=== PATIENT | female | born 1955 | race African-American/Black ===

== ENCOUNTER 2017-04-22 20:05 | Inpatient (IN) | payer OTHER ==
[~2017-04-22] VITALS: Ht 165.1 cm; Wt 108.4 kg
[~2017-04-22 20:05] MED LIST: AMOXICILLIN500 MG PO; CIPRO500 MG PO; LOSARTAN POTASS25 MG ORAL; MEDROL DOSEPAK4 MG ORAL; METFORMIN HCL1000 M1 ORAL; NORCO 5-325 TA1 EACH ORAL; NORCO 5-325 TA1 EACH PO; PROTONIX40 MG ORAL; RANITIDINE HCL150 MG ORAL; TRAMADOL HCL50 MG ORAL
[2017-04-22 20:31] VITALS: BP 143/80
--- NOTE | 2017-04-22 20:41 | Emergency Room Report ---
History of Present Illness General Chief Complaint: Abdominal Pain Source: Patient (Davie Cuellar M.D.) Present Illness HPI Patient presents with 2 days of lower abdominal pain. She describes it as severe cramping. Radiate somewhat to her back. She's also had nausea without any vomiting. There's no change in her bowel habits. She had knee surgery 1 month ago. She has been taking naprosyn. She was unable to fill other Rx for other pain med ([place]). The patient is a history of small bowel obstruction in the past. She's had a partial hysterectomy. In addition she had colonoscopy and she believes diagnosis of diverticuli was made to that exam. The patient denies any chest pain, shortness of breath, fevers, chills. There' s no dysuria. (Davie Cuellar M.D.) Allergies: Coded Allergies: No Known Allergies (Unverified , 08/25/13) Patient History Past Medical History: see triage record Past Surgical History: hysterectomy - partial, other - knee surgery Social History: Reports: smoking - former Social History Narrative with family Last Menstrual Period: 1996 Now: No : 10 Para: 3 Reviewed Nursing Documentation: PMH: Agreed, PSxH: Agreed (Davie Cuellar M.D.) Nursing Documentation-PMH Hx Hypertension: Yes Hx Diabetes: Yes Hx Cancer: No Hx Gastrointestinal Problems: No Hx Neurological Problems: Yes - Carpal Tunnel Syndrome (Davie Cuellar M.D.) Review of Systems All Other Systems: negative except mentioned in HPI (Davie Cuellar M.D.) Physical Exam Vital Signs Date Time Temp Pulse Resp B/P Pulse Ox O2 Delivery O2 Flow Rate FiO2 04/22/17 20:10 98.4 96 16 125/85 96 Room Air Sp02 EP Interpretation: reviewed, normal General Appearance: well appearing, no apparent distress, GCS 15 Head: normocephalic Eyes: bilateral eye PERRL, bilateral eye normal inspection ENT: moist mucus membranes Neck: supple Respiratory: lungs clear, normal breath sounds Cardiovascular #1: regular rate, rhythm Cardiovascular #2: 2+ radial (R) Gastrointestinal: normal inspection, normal bowel sounds, no mass, non- distended, no rebound, guarding, tenderness - LLQ Musculoskeletal: back normal, gait/station normal, normal range of motion Neurologic: alert, oriented x3, grossly normal Psychiatric: mood/affect normal - but in pain Skin: normal inspection, warm/dry (Davie Cuellar M.D.) Medical Decision Making Diagnostic Impression: Primary Impression: Abdominal pain Qualified Codes: R10.32 - Left lower quadrant pain Additional Impressions: Intractable abdominal pain UTI (urinary tract infection) Qualified Codes: N30.00 - Acute cystitis without hematuria ER Course Patient presents with abdominal pain. Really severe. It's not a surgical abdomen at the moment. It's significant on exam however and evaluation needs to be undertaken to exclude diverticulitis versus small bowel obstruction. Addition a UTI and ureteral stone are on the differential. Labs, urinalysis and CT of the abdomen with IV and oral contrast is ordered. Patient was treated with IV hydration Zofran and morphine. Morphine not touch pain. Dilaudid ordered. Labs with normal WBC. Pyuria. Antibiotics begun. IV hydration continued. Dilaudid repeated. Still with LLQ guarding. Due to character of pain and lack of improvement, patient will be admitted. CT pending. Signed out to Dr. Brown. (Davie Cuellar M.D.) ER Course Please refer to the initial note for the history exam and presentation Patient here had persistent lower abdominal pain and also left sided Therefore CAT scan imaging was obtained At this time does not reveal any obvious acute abdominal pathology Urine sample did show evidence of infection patient was placed on antibiotics at this time is admitted for further care Labs Test 04/22/17 20:45 White Blood Count 9.3 K/UL (4.8-10.8) Red Blood Count 4.43 M/UL (4.20-5.40) Hemoglobin 11.9 G/DL (12.0-16.0) Hematocrit 36.2 % (37.0-47.0) Mean Corpuscular Volume 82 FL (80-99) Mean Corpuscular Hemoglobin 26.9 PG (27.0-31.0) Mean Corpuscular Hemoglobin Concent 32.9 G/DL (32.0-36.0) Red Cell Distribution Width 14.0 % (11.6-14.8) Platelet Count 294 K/UL (150-450) Mean Platelet Volume 7.8 FL (6.5-10.1) Neutrophils (%) (Auto) 50.9 % (45.0-75.0) Lymphocytes (%) (Auto) 38.5 % (20.0-45.0) Monocytes (%) (Auto) 5.7 % (1.0-10.0) Eosinophils (%) (Auto) 3.6 % (0.0-3.0) Basophils (%) (Auto) 1.4 % (0.0-2.0) Prothrombin Time 10.3 SEC (9.30-11.50) Prothromb Time International Ratio 1.0 (0.9-1.1) Activated Partial Thromboplast Time 29 SEC (23-33) Urine Color Fay Urine Appearance Slightly cloudy Urine pH 5 (4.5-8.0) Urine Specific [place] 1.025 (1.005-1.035) Urine Protein Negative (NEGATIVE) Urine Glucose (UA) 1+ (NEGATIVE) Urine Ketones 1+ (NEGATIVE) Urine Occult Blood Negative (NEGATIVE) Urine Nitrite Negative (NEGATIVE) Urine Bilirubin Negative (NEGATIVE) Urine Ictotest Negative Urine Urobilinogen 1 MG/DL (0.0-1.0) Urine Leukocyte Esterase 1+ (NEGATIVE) Urine RBC 0-2 /HPF (0 - 2) Urine WBC 5-10 /HPF (0 - 2) Urine Squamous Epithelial Cells Many /LPF (NONE/OCC) Urine Bacteria Moderate /HPF (NONE) Sodium Level 141 mEQ/L (135-145) Potassium Level 4.0 mEQ/L (3.4-4.9) Chloride Level 103 mEQ/L (98-107) Carbon Dioxide Level 25 mEQ/L (20-30) Anion Gap 13 (5-15) Blood Urea Nitrogen 17 mg/dL (7-23) Creatinine 0.8 mg/dL (0.5-0.9) Estimat Glomerular Filtration Rate > 60 mL/min (>60) Glucose Level 131 mg/dL (74-106) Calcium Level 9.6 mg/dL (8.6-10.2) Total Bilirubin 0.3 mg/dL (0.0-1.2) Aspartate Amino Transf (AST/SGOT) 21 U/L (5-40) Alanine Aminotransferase (ALT/SGPT) 27 U/L (3-33) Alkaline Phosphatase 71 U/L (35-104) Total Protein 7.6 g/dL (6.6-8.7) Albumin 4.7 g/dL (3.5-5.2) Globulin 2.9 g/dL Albumin/Globulin Ratio 1.6 (1.0-2.7) Lipase 14 U/L (< 60) (LEVY BROWN D.O.) Rhythm Strip Diag. Results EP Interpretation: yes Rate: 68 Rhythm: NSR, no PVC's, no ectopy (LEVY BROWN D.O.) CT/MRI/US Diagnostic Results CT/MRI/US Diagnostic Results : Impression CT abdomen pelvis: Previous cholecystectomy, no evidence of obstruction, extensive degenerative disc disease (LEVY BROWN D.O.) Last Vital Signs Date Time Temp Pulse Resp B/P Pulse Ox O2 Delivery O2 Flow Rate FiO2 04/23/17 00:55 98.4 04/22/17 20:31 97 13 143/80 100 Room Air Status: improved (Davie Cuellar M.D.) Status: improved (LEVY BROWN D.O.) Disposition: ADMITTED INPATIENT Condition: Serious Davie Cuellar M.D. Apr 22, 2017 20:41 LEVY BROWN D.O. Apr 23, 2017 00:36
[2017-04-22] MEDS ORDERED: Morphine Sulfate 4mg/ml Inj IVP ONE (20:45)
[2017-04-22 20:59] LABS: BASOPHILS % (AUTO) 1.4 % (0.0-2.0); EOSINOPHILS % (AUTO) 3.6 % (0.0-3.0); LYMPHOCYTES % (AUTO) 38.5 % (20.0-45.0); MEAN CORPUSCULAR HEMOGLOBIN 26.9 PG (27.0-31.0); MEAN CORPUSCULAR HGB CONC 32.9 G/DL (32.0-36.0); MEAN CORPUSCULAR VOLUME 82 FL (80-99); MEAN PLATELET VOLUME 7.8 FL (6.5-10.1); MONOCYTES % (AUTO) 5.7 % (1.0-10.0); NEUTROPHILS % (AUTO) 50.9 % (45.0-75.0); PLATELET COUNT 294 K/UL (150-450); RED BLOOD COUNT 4.43 M/UL (4.20-5.40); WHITE BLOOD COUNT 9.3 K/UL (4.8-10.8)
[2017-04-22 21:00] LABS: KETONES,URINE 1+ (NEGATIVE); LEUKOCYTE ESTERASE ,URINE 1+ (NEGATIVE); NITRITE,URINE NEGATIVE (NEGATIVE); PH,URINE 5 (4.5-8.0); PROTEIN,URINE NEGATIVE (NEGATIVE); UROBILINOGEN,URINE 1 MG/DL (0.0-1.0)
[2017-04-22 21:01] LABS: APPEARANCE,URINE SLIGHTLY CLOUDY
[2017-04-22 21:10] LABS: BACTERIA,URINE MODERATE /HPF; ICTOTEST NEGATIVE; RBC,URINE 0-2 /HPF (0 - 2); SQUAMOUS EPITHELIAL CELL,UR MANY /LPF (NONE/OCC)
[2017-04-22 21:12] LABS: PROTHROMBIN TIME 10.3 SEC (9.30-11.50)
[2017-04-22] MEDS ORDERED: HYDROmorphone 1mg/ml Carpuject IVP ONE ×2 (21:30→22:30)
[2017-04-22 21:41] LABS: ALANINE AMINOTRANSFERASE 27 U/L (3-33); ALBUMIN/GLOBULIN RATIO 1.6 (1.0-2.7); ANION GAP 13 (5-15); ASPARTATE AMINO TRANSFERASE 21 U/L (5-40); CALCIUM 9.6 mg/dL (8.6-10.2); CARBON DIOXIDE 25 mEQ/L (20-30); CHLORIDE 103 mEQ/L (98-107); CREATININE 0.8 mg/dL (0.5-0.9); GLOMERULAR FILTRATION RATE > 60 mL/min (>60); HEMOLYSIS 3; LIPASE 14 U/L (< 60); SODIUM 141 mEQ/L (135-145); TOTAL PROTEIN 7.6 g/dL (6.6-8.7)
[2017-04-22] MEDS ORDERED: cefTRIAXone 1 GM in NS 55 ML IVPB ONE (21:45)
[2017-04-23] VITALS (7 sets, daily range): BP systolic 118–137; BP diastolic 66–102
[2017-04-23] MEDS ORDERED: HYDROmorphone 1 MG, DiphenhydrAMINE 25 MG in NS 55 ML IV ONE (00:30)
[2017-04-23] MEDS ORDERED: DiphenhydrAMINE 50mg/ml Inj ONE (00:42)
[2017-04-23] MEDS ORDERED: HYDROmorphone 1mg/ml Carpuject ONE (00:42)
[2017-04-23] MEDS ORDERED: Nitroglycerin Subl 0.4mg tab (Bottle Of 25) SL PRN (07:00)
[2017-04-23] MEDS ORDERED: Mylanta II UD 30ml ORAL PRN (07:00)
[2017-04-23] MEDS ORDERED: Miralax 17gm pkt ORAL PRN (07:00)
[2017-04-23] MEDS: Morphine Sulfate 2mg/ml Inj IVP PRN ×3 (08:24→23:31)
[2017-04-23] MEDS: Heparin 5000 units/ml inj SUBQ SCH ×2 (09:26→21:05)
--- NOTE | 2017-04-23 09:50 | Diagnostic Imaging Report ---
Indication: Abdominal pain Technique: Continuous helical transaxial imaging of the abdomen and pelvis was obtained from the lung bases to the pubic symphysis during intravenous contrast administration. Coronal 2-D reformats were also obtained. Study obtained in a Siemens sensation [address] Total Dose length Product (DLP): [address] Dose Index Volume (CTDIvol): 19 mGy Comparison: 12/16/14 Findings: Small hiatal hernia noted. Mild posterior basilar reticular densities consistent with atelectasis demonstrated. The liver is low in attenuation consistent with fatty infiltration. Cholecystectomy noted. Aorta is mildly calcified. Accessory spleen noted. Surgical clips noted in the right lower quadrant posterior to the cecum. The appendix is seen and appears normal. Uterus is absent. Urinary bladder is unremarkable. No evidence of bowel obstruction or free air. No free fluid seen. Diverticula noted in the colon. There is narrowing of intervertebral discs and accompanying endplate osteophyte formation. Hypertrophied facet joints also demonstrated. Impression: Fatty liver Cholecystectomy Normal appendix Diverticulosis of the colon Atherosclerotic vascular disease Spondylosis [facility] has communicated the preliminary results to the Emergency Department. Their findings are largely concordant with this report. The CT scanner at [facility] is accredited by the [employer] and the scans are performed using dose optimization techniques as appropriate to a performed exam including Automatic Exposure control.
[2017-04-23] MEDS: NovoLOG Insulin Flexpen SUBQ SCH ×3 (11:30→21:00)
[2017-04-23] MEDS: Ketorolac 30mg Inj IV PRN ×2 (12:05→19:30)
--- NOTE | 2017-04-23 13:39 | GI Initial Consult Note ---
History of Present Illness General Date patient seen: Apr 23, 2017 Time patient seen: 11:00 Reason for Hospitalization: Abdominal Pain Referring physician: TC BOND Reason for Consultation: ABDOMINAL PAIN Present Illness HPI Patient presents with 2 days of lower abdominal pain. She describes it as severe cramping. Radiate somewhat to her back. She's also had nausea without any vomiting. There's no change in her bowel habits. She had knee surgery 1 month ago. She has been taking naprosyn. She was unable to fill other Rx for pain. The patient is a history of small bowel obstruction in the past. She's had a partial hysterectomy. In addition she had colonoscopy and she believes or diverticular was made to that exam. The patient denies any chest pain, shortness of breath, fevers, chills. There's no dysuria. GI Consult. HPI as noted above. GI consulted for abdominal pain. Pt seen on floor, awake A&Ox4 NAD with no active s/sx of N/V/D. Pt reports diarrhea x 2 days. No changes in dietary habits. No unintentional weight loss. Patient quit smoking 8 months ago. Denies drugs. Social ETOH user. APCT unremarkable , see summary below. Last colonoscopy x 5 years ago with colonic polyps. She presents today with mild anemia. Procedure: CT Abdomen Pelvis w/Contrast Indication: Abdominal pain Impression: Fatty liver Cholecystectomy Normal appendix Diverticulosis of the colon Atherosclerotic vascular disease Spondylosis Home Meds Active Scripts Ciprofloxacin* (CIPRO*) 500 Mg Tablet, 500 MG PO BID, #6 TAB Prov:Mando Kong 11/16/15 Tramadol Hcl* (ULTRAM*) 50 Mg Tablet, 50 MG ORAL Q6H Y for For Pain, #14 TAB 0 Refills Prov:Mando Kong 11/16/15 Reported Medications Losartan Potassium* (LOSARTAN POTASSIUM*) 25 Mg Tablet, ORAL DAILY, TAB 12/16/14 Ranitidine Hcl* (ZANTAC*) 150 Mg Tablet, ORAL DAILY, TAB 12/16/14 Metformin Hcl* (METFORMIN HCL*) 1,000 Mg Tablet, 1000 MG ORAL BID, TAB 12/16/14 Med list reviewed/reconciled: Yes Allergies: Coded Allergies: No Known Allergies (Unverified , 08/25/13) Patient History History Provided By: Patient, Medical Record [facility] Narrative Past Medical History: see triage record Past Surgical History: hysterectomy - partial, other - knee surgery Social History: Reports: smoking - former Last Menstrual Period: 1996 Now: No : 10 Para: 3 Hx Hypertension: Yes Hx Diabetes: Yes Hx Cancer: No Hx Gastrointestinal Problems: No Hx Neurological Problems: Yes - Carpal Tunnel Syndrome Review of Systems All Other Systems: negative except mentioned in HPI Physical Exam Vital Signs Date Time Temp Pulse Resp B/P Pulse Ox O2 Delivery O2 Flow Rate FiO2 04/22/17 20:10 98.4 96 16 125/85 96 Room Air Sp02 EP Interpretation: reviewed Labs Laboratory Tests Test 04/22/17 20:45 White Blood Count 9.3 K/UL (4.8-10.8) Red Blood Count 4.43 M/UL (4.20-5.40) Hemoglobin 11.9 G/DL (12.0-16.0) L Hematocrit 36.2 % (37.0-47.0) L Mean Corpuscular Volume 82 FL (80-99) Mean Corpuscular Hemoglobin 26.9 PG (27.0-31.0) L Mean Corpuscular Hemoglobin Concent 32.9 G/DL (32.0-36.0) Red Cell Distribution Width 14.0 % (11.6-14.8) Platelet Count 294 K/UL (150-450) Mean Platelet Volume 7.8 FL (6.5-10.1) Neutrophils (%) (Auto) 50.9 % (45.0-75.0) Lymphocytes (%) (Auto) 38.5 % (20.0-45.0) Monocytes (%) (Auto) 5.7 % (1.0-10.0) Eosinophils (%) (Auto) 3.6 % (0.0-3.0) H Basophils (%) (Auto) 1.4 % (0.0-2.0) Prothrombin Time 10.3 SEC (9.30-11.50) Prothromb Time International Ratio 1.0 (0.9-1.1) Activated Partial Thromboplast Time 29 SEC (23-33) Urine Color Fay Urine Appearance Slightly cloudy Urine pH 5 (4.5-8.0) Urine Specific [place] 1.025 (1.005-1.035) Urine Protein Negative (NEGATIVE) Urine Glucose (UA) 1+ (NEGATIVE) H Urine Ketones 1+ (NEGATIVE) H Urine Occult Blood Negative (NEGATIVE) Urine Nitrite Negative (NEGATIVE) Urine Bilirubin Negative (NEGATIVE) Urine Ictotest Negative Urine Urobilinogen 1 MG/DL (0.0-1.0) H Urine Leukocyte Esterase 1+ (NEGATIVE) H Urine RBC 0-2 /HPF (0 - 2) Urine WBC 5-10 /HPF (0 - 2) H Urine Squamous Epithelial Cells Many /LPF (NONE/OCC) H Urine Bacteria Moderate /HPF (NONE) H Sodium Level 141 mEQ/L (135-145) Potassium Level 4.0 mEQ/L (3.4-4.9) Chloride Level 103 mEQ/L (98-107) Carbon Dioxide Level 25 mEQ/L (20-30) Anion Gap 13 (5-15) Blood Urea Nitrogen 17 mg/dL (7-23) Creatinine 0.8 mg/dL (0.5-0.9) Estimat Glomerular Filtration Rate > 60 mL/min (>60) Glucose Level 131 mg/dL (74-106) H Calcium Level 9.6 mg/dL (8.6-10.2) Total Bilirubin 0.3 mg/dL (0.0-1.2) Aspartate Amino Transf (AST/SGOT) 21 U/L (5-40) Alanine Aminotransferase (ALT/SGPT) 27 U/L (3-33) Alkaline Phosphatase 71 U/L (35-104) Total Protein 7.6 g/dL (6.6-8.7) Albumin 4.7 g/dL (3.5-5.2) Globulin 2.9 g/dL Albumin/Globulin Ratio 1.6 (1.0-2.7) Lipase 14 U/L (< 60) General Appearance: well appearing, no apparent distress, alert Head: normocephalic EENT: PERRL/EOMI, normal ENT inspection Neck: full range of motion, supple Respiratory: lungs clear, no respiratory distress Cardiovascular: normal rate Gastrointestinal: normal inspection, non tender, soft, normal bowel sounds Genitourinary: normal inspection Musculoskeletal: normal inspection Neurologic: normal inspection, alert, oriented x3, responsive Psychiatric: normal inspection, judgement/insight normal, memory normal Skin: normal color, no rash Lymphatic: normal inspection, no adenopathy Current Medications Current Medications Medications (Trade) Dose Ordered Sig/Jaya Route PRN Reason Start Time Stop Time Status Last Admin Dose Admin Acetaminophen (Tylenol) 650 mg Q4H PRN ORAL T>100.5 04/23/17 07:00 05/23/17 06:59 Al Hydroxide/Mg Hydroxide (Mylanta II) 30 ml Q6H PRN ORAL dyspepsia 04/23/17 07:00 05/23/17 06:59 Dextrose (Dextrose 50%) STAT PRN IV Hypoglycemia 04/23/17 07:00 05/23/17 06:59 Diphenhydramine HCl (Benadryl) 25 mg Q6H PRN ORAL Itching/Pruritis 04/23/17 07:00 05/23/17 06:59 Heparin Sodium (Porcine) (Heparin 5000 units/ml) 5,000 units EVERY 12 HOURS SUBQ 04/23/17 09:00 05/23/17 08:59 04/23/17 09:26 Insulin Aspart (NovoLOG) BEFORE MEALS AND HS SUBQ 04/23/17 11:30 05/23/17 11:29 Ketorolac Tromethamine 30 mg 30 mg Q6H PRN IV Moderate Pain (Pain Scale 4-6) 04/23/17 07:00 04/28/17 06:59 04/23/17 12:05 Morphine Sulfate (Morphine Sulfate) 2 mg Q4H PRN IVP Severe Pain (Pain Scale 7-10) 04/23/17 07:00 04/30/17 06:59 04/23/17 08:24 Nitroglycerin (Ntg) 0.4 mg Q5M X 3 DOSES PRN SL Prn Chest Pain 04/23/17 07:00 05/23/17 06:59 Ondansetron HCl (Zofran) 4 mg Q6H PRN IVP Nausea & Vomiting 04/23/17 07:00 05/23/17 06:59 Polyethylene Glycol (Miralax) 17 gm HSPRN PRN ORAL Constipation 04/23/17 07:00 05/23/17 06:59 Sodium Chloride (Sodium Chloride 1000ml bag) 1,000 ml @ 50 mls/hr Q20H IV 04/23/17 07:30 05/23/17 07:29 04/23/17 09:24 Temazepam (Restoril) 15 mg HSPRN PRN ORAL Insomnia 04/23/17 21:00 04/30/17 20:59 GI: Plan Problems: (1) Abdominal pain (2) Anemia (3) Fatty liver (4) Diverticulosis Plan CT AP reviewed >> fatty liver fu abdominal U/S >> ok to adv diet after imaging study anemia work up, will consider GI procedures OB stool r/o GI bleed send stool studies, cdiff ppi fu labs Discussed with Dr. Lambert. Thank you for referring this patient, we will follow. Belkys Calderon N.P. Apr 23, 2017 13:39
--- NOTE | 2017-04-23 14:31 | Diagnostic Imaging Report ---
APPROVED REPORT CPT Code: 73914 Present Symptoms Comments: Pain BILATERAL: Imaging reveals a patent deep venous system bilaterally. There is no evidence of thrombus within the femoral, popliteal or tibial segments. The greater saphenous veins are also within normal limits. Doppler indicates normal spontaneous flow within these segments.
[2017-04-23] MEDS ORDERED: NS 55ml IV ONE (14:56)
--- NOTE | 2017-04-23 16:09 | Diagnostic Imaging Report ---
Indication:Abdominal pain Technique: Grayscale and duplex Doppler imaging of the abdomen performed. Comparison: None Findings: The liver is echogenic consistent with fatty infiltration. Gallbladder is absent. No biliary ductal dilatation is identified. CBD is between 7 and 9 mm. There is no free fluid. Main portal vein is widely patent by Doppler evaluation shows normal waveform and a flow direction. The pancreas is poorly demonstrated on this study. There is no hydronephrosis. Spleen is normal in size. Aorta shows some neural calcification. Impression: Fatty liver. Negative evaluation otherwise
--- NOTE | 2017-04-23 21:49 | History and Physical ---
History of Present Illness General Date patient seen: Apr 23, 2017 Reason for Hospitalization: Abdominal Pain Present Illness HPI 62 year old female presented with 2 days of lower abdominal pain. She describes it as severe cramping. Radiate somewhat to her back. She's also had nausea without any vomiting. There's no change in her bowel habits. She had knee surgery 1 month ago. She is admitted for further evaluation. Allergies: Coded Allergies: No Known Allergies (Unverified , 08/25/13) Medication History Scheduled Ciprofloxacin* (Cipro*), 500 MG PO BID Losartan Potassium* (Losartan Potassium*), Unknown Dose ORAL DAILY, (Reported) Metformin Hcl* (Metformin Hcl*), 1,000 MG ORAL BID, (Reported) Ranitidine Hcl* (Zantac*), Unknown Dose ORAL DAILY, (Reported) Scheduled PRN Tramadol Hcl* (Ultram*), 50 MG ORAL Q6H PRN for For Pain Patient History Healthcare decision maker Resuscitation status Advanced Directive on File Past Medical/Surgical History Past Medical/Surgical History: (1) Fatty liver (2) Diabetes (3) Chronic NSAIDs use Review of Systems All Other Systems: negative except mentioned in HPI Physical Exam General Appearance: WD/WN Lines, tubes and drains: peripheral HEENT: normocephalic, atraumatic Neck: non-tender, normal alignment Respiratory/Chest: chest wall non-tender, lungs clear Breasts: no masses Cardiovascular/Chest: normal peripheral pulses Abdomen: normal bowel sounds Genitourinary/Rectal: normal genital exam Extremities: normal range of motion Skin Exam: normal pigmentation Last 24 Hour Vital Signs Date Time Temp Pulse Resp B/P Pulse Ox O2 Delivery O2 Flow Rate FiO2 04/23/17 20:00 97.7 72 18 137/79 100 Room Air 04/23/17 16:00 97.7 71 18 131/82 100 Room Air 04/23/17 12:00 97.2 65 18 129/74 96 Room Air 04/23/17 08:00 97.2 68 18 118/66 93 Room Air 04/23/17 04:00 97.0 64 20 128/66 93 Room Air 04/23/17 02:10 96.8 65 16 135/75 100 Room Air 04/23/17 01:45 98.4 66 13 135/102 100 Room Air 04/23/17 01:35 98.4 66 13 135/102 100 Room Air 04/23/17 00:55 98.4 04/22/17 21:57 98.4 Intake and Output 04/22/17 04/23/17 19:00 07:00 Intake Total 1055 ml Balance 1055 ml IV Total 1055 ml # Voids 2 Height (Feet): 5 Height (Inches): 7.00 Weight (Pounds): 242 Medications Current Medications Medications (Trade) Dose Ordered Sig/Jaya Route PRN Reason Start Time Stop Time Status Last Admin Dose Admin Acetaminophen (Tylenol) 650 mg Q4H PRN ORAL T>100.5 04/23/17 07:00 05/23/17 06:59 Al Hydroxide/Mg Hydroxide (Mylanta II) 30 ml Q6H PRN ORAL dyspepsia 04/23/17 07:00 05/23/17 06:59 Dextrose (Dextrose 50%) STAT PRN IV Hypoglycemia 04/23/17 07:00 05/23/17 06:59 Diphenhydramine HCl (Benadryl) 25 mg Q6H PRN ORAL Itching/Pruritis 04/23/17 07:00 05/23/17 06:59 Heparin Sodium (Porcine) (Heparin 5000 units/ml) 5,000 units EVERY 12 HOURS SUBQ 04/23/17 09:00 05/23/17 08:59 04/23/17 21:05 Insulin Aspart (NovoLOG) BEFORE MEALS AND HS SUBQ 04/23/17 11:30 05/23/17 11:29 04/23/17 17:38 Ketorolac Tromethamine 30 mg 30 mg Q6H PRN IV Moderate Pain (Pain Scale 4-6) 04/23/17 07:00 04/28/17 06:59 04/23/17 19:30 Morphine Sulfate (Morphine Sulfate) 2 mg Q4H PRN IVP Severe Pain (Pain Scale 7-10) 04/23/17 07:00 04/30/17 06:59 04/23/17 15:49 Nitroglycerin (Ntg) 0.4 mg Q5M X 3 DOSES PRN SL Prn Chest Pain 04/23/17 07:00 05/23/17 06:59 Ondansetron HCl (Zofran) 4 mg Q6H PRN IVP Nausea & Vomiting 04/23/17 07:00 05/23/17 06:59 Polyethylene Glycol (Miralax) 17 gm HSPRN PRN ORAL Constipation 04/23/17 07:00 05/23/17 06:59 Sodium Chloride (Sodium Chloride 1000ml bag) 1,000 ml @ 50 mls/hr Q20H IV 04/23/17 07:30 05/23/17 07:29 04/23/17 09:24 Temazepam (Restoril) 15 mg HSPRN PRN ORAL Insomnia 04/23/17 21:00 04/30/17 20:59 Assessment/Plan Problem List: (1) Intractable abdominal pain ICD Codes: R10.9 - Unspecified abdominal pain SNOMED: 95286114 (2) Diabetes ICD Codes: E11.9 - Diabetes SNOMED: 67658505 (3) HTN (hypertension) ICD Codes: I10 - HTN (hypertension) SNOMED: 31382373 (4) Chronic NSAIDs use Assessment/Plan npo iv fluids symptomatic treatment GI evaluation. dvt prophylaxis check labs in TC Maciel Apr 23, 2017 21:49
[2017-04-24] VITALS: BP 141/79
[2017-04-24] MEDS: Ketorolac 30mg Inj IV PRN (04:02)
[2017-04-24 04:24] VITALS: BP 142/76
[2017-04-24 06:17] LABS: BASOPHILS % (AUTO) 1.3 % (0.0-2.0); LYMPHOCYTES % (AUTO) 49.4 % (20.0-45.0); MEAN CORPUSCULAR HEMOGLOBIN 26.3 PG (27.0-31.0); MEAN CORPUSCULAR HGB CONC 31.7 G/DL (32.0-36.0); MEAN CORPUSCULAR VOLUME 83 FL (80-99); MEAN PLATELET VOLUME 8.7 FL (6.5-10.1); MONOCYTES % (AUTO) 7.3 % (1.0-10.0); NEUTROPHILS % (AUTO) 36.1 % (45.0-75.0); PLATELET COUNT 271 K/UL (150-450); RED CELL DISTRIBUTION WIDTH 13.5 % (11.6-14.8); WHITE BLOOD COUNT 5.6 K/UL (4.8-10.8)
[2017-04-24 06:21] LABS: PROTHROMBIN TIME 10.6 SEC (9.30-11.50)
[2017-04-24] MEDS: NovoLOG Insulin Flexpen SUBQ SCH ×4 (06:25→20:42)
[2017-04-24 06:48] LABS: CRP QUANT 0.5 mg/dL (< 0.5); PHOSPHORUS 3.5 mg/dL (2.5-4.8)
[2017-04-24 06:49] LABS: ALANINE AMINOTRANSFERASE 29 U/L (3-33); ASPARTATE AMINO TRANSFERASE 24 U/L (5-40); CARBON DIOXIDE 25 mEQ/L (20-30); CREATININE 0.6 mg/dL (0.5-0.9); GLOMERULAR FILTRATION RATE > 60 mL/min (>60); TOTAL PROTEIN 6.7 g/dL (6.6-8.7)
[2017-04-24 06:50] LABS: ALBUMIN/GLOBULIN RATIO 1.4 (1.0-2.7); AMYLASE 39 U/L (10-110); ANION GAP 10 (5-15); CHLORIDE 103 mEQ/L (98-107); HEMOLYSIS 5; LIPASE 12 U/L (< 60); POTASSIUM 4.1 mEQ/L (3.4-4.9); SODIUM 138 mEQ/L (135-145)
[2017-04-24 06:55] LABS: HEMOGLOBIN A1C 7.2 % (< 6.0)
[2017-04-24 07:03] LABS: FERRITIN 128 ng/mL (13-150)
[2017-04-24] MEDS: Morphine Sulfate 2mg/ml Inj IVP PRN ×3 (07:57→20:37)
[2017-04-24 08:55] VITALS: BP 147/83
[2017-04-24] MEDS: Heparin 5000 units/ml inj SUBQ SCH ×2 (09:15→20:42)
[2017-04-24 12:39] VITALS: BP 127/69
--- NOTE | 2017-04-24 15:08 | GI Progress Note ---
Assessment/Plan Problems: (1) Abdominal pain ICD Codes: R10.9 - Unspecified abdominal pain SNOMED: 73316135 (2) Anemia ICD Codes: D64.9 - Anemia SNOMED: 050100898 (3) Fatty liver ICD Codes: K76.0 - Fatty liver SNOMED: 821792869 (4) Diabetes ICD Codes: E11.9 - Diabetes SNOMED: 11143299 (5) HTN (hypertension) ICD Codes: I10 - HTN (hypertension) SNOMED: 78652687 Status: stable, unchanged Status Narrative Discussed with Dr. Lambert. Assessment/Plan CT AP reviewed >> fatty liver fu abdominal U/S >> Fatty liver. Negative evaluation otherwise. EGD/colonoscopy scheduled for tomorrow. - CLD, NPO @ [place]. - hold blood thinners tonight. send stool studies, cdiff ppi fu labs Subjective Subjective abdominal pain Objective Last 24 Hour Vital Signs Date Time Temp Pulse Resp B/P Pulse Ox O2 Delivery O2 Flow Rate FiO2 04/24/17 13:45 97.0 04/24/17 12:39 97.0 76 20 127/69 100 Room Air 04/24/17 08:55 97.3 69 20 147/83 96 Room Air 04/24/17 04:24 96.6 72 20 142/76 95 Room Air 04/24/17 00:00 97.7 73 18 141/79 99 Room Air 04/23/17 20:00 97.7 72 18 137/79 100 Room Air 04/23/17 16:00 97.7 71 18 131/82 100 Room Air Intake and Output 04/23/17 04/24/17 19:00 07:00 Intake Total 750 ml 600 ml Balance 750 ml 600 ml Intake Oral 250 ml IV Total 500 ml 600 ml # Voids 1 7 # Bowel Movements 2 Laboratory Tests Test 04/24/17 04:50 04/24/17 14:00 White Blood Count 5.6 K/UL (4.8-10.8) Red Blood Count 4.40 M/UL (4.20-5.40) Hemoglobin 11.6 G/DL (12.0-16.0) L Hematocrit 36.4 % (37.0-47.0) L Mean Corpuscular Volume 83 FL (80-99) Mean Corpuscular Hemoglobin 26.3 PG (27.0-31.0) L Mean Corpuscular Hemoglobin Concent 31.7 G/DL (32.0-36.0) L Red Cell Distribution Width 13.5 % (11.6-14.8) Platelet Count 271 K/UL (150-450) Mean Platelet Volume 8.7 FL (6.5-10.1) Neutrophils (%) (Auto) 36.1 % (45.0-75.0) L Lymphocytes (%) (Auto) 49.4 % (20.0-45.0) H Monocytes (%) (Auto) 7.3 % (1.0-10.0) Eosinophils (%) (Auto) 6.0 % (0.0-3.0) H Basophils (%) (Auto) 1.3 % (0.0-2.0) Erythrocyte Sedimentation Rate 26 MM/HR (0-30) Reticulocyte Count 2.1 % (0.0-2.0) H Prothrombin Time 10.6 SEC (9.30-11.50) Prothromb Time International Ratio 1.0 (0.9-1.1) Activated Partial Thromboplast Time 30 SEC (23-33) Sodium Level 138 mEQ/L (135-145) Potassium Level 4.1 mEQ/L (3.4-4.9) Chloride Level 103 mEQ/L (98-107) Carbon Dioxide Level 25 mEQ/L (20-30) Anion Gap 10 (5-15) Blood Urea Nitrogen 11 mg/dL (7-23) Creatinine 0.6 mg/dL (0.5-0.9) Estimat Glomerular Filtration Rate > 60 mL/min (>60) Glucose Level 151 mg/dL (74-106) H Hemoglobin A1c 7.2 % (< 6.0) H Calcium Level 9.0 mg/dL (8.6-10.2) Phosphorus Level 3.5 mg/dL (2.5-4.8) Magnesium Level 2.0 mg/dL (1.7-2.5) Iron Level 105 ug/dL (37-145) Total Iron Binding Capacity 308 ug/dL (250-400) Percent Iron Saturation 34 % (15-50) Unsaturated Iron Binding 203 ug/dL (112-346) Ferritin 128 ng/mL (13-150) Total Bilirubin 0.6 mg/dL (0.0-1.2) Aspartate Amino Transf (AST/SGOT) 24 U/L (5-40) Alanine Aminotransferase (ALT/SGPT) 29 U/L (3-33) Alkaline Phosphatase 66 U/L (35-104) C-Reactive Protein, Quantitative 0.5 mg/dL (< 0.5) Total Protein 6.7 g/dL (6.6-8.7) Albumin 4.0 g/dL (3.5-5.2) Globulin 2.7 g/dL Albumin/Globulin Ratio 1.4 (1.0-2.7) Amylase Level 39 U/L (10-110) Lipase 12 U/L (< 60) Carcinoembryonic Antigen 2.5 ng/mL Vitamin B12 Level 247 pg/mL (211-946) Folate Pending Thyroid Stimulating Hormone (TSH) 1.860 uIU/mL (0.300-4.500) Free Thyroxine 1.06 ng/dL (0.86-1.85) Stool Occult Blood Negative (NEGATIVE) Height (Feet): 5 Height (Inches): 7.00 Weight (Pounds): 242 General Appearance: no apparent distress, alert, overweight Cardiovascular: normal rate Respiratory/Chest: normal breath sounds, no respiratory distress Abdominal Exam: normal bowel sounds, non tender, soft eBlkys Calderon N.Maren Apr 24, 2017 15:08
[2017-04-24] MEDS ORDERED: Bisacodyl EC 5mg tab ORAL ONE (16:00)
[2017-04-24] MEDS ORDERED: Nulytely 4L ORAL ONE (16:00)
[2017-04-24 16:11] VITALS: BP 120/76
--- NOTE | 2017-04-24 18:21 | Pulmonology Progress Note ---
Assessment/Plan Problems: (1) Intractable abdominal pain (2) Diabetes (3) HTN (hypertension) (4) Chronic NSAIDs use Assessment/Plan clear liquid iv fluids symptomatic treatment GI evaluation appreciated for upper endoscopy and colonoscopy in am dvt prophylaxis check labs in am Subjective ROS Limited/Unobtainable: No Constitutional: Reports: no symptoms HEENT: Repors: no symptoms Respiratory: Reports: no symptoms Allergies: Coded Allergies: No Known Allergies (Unverified , 08/25/13) Objective Last 24 Hour Vital Signs Date Time Temp Pulse Resp B/P Pulse Ox O2 Delivery O2 Flow Rate FiO2 04/24/17 16:11 97.0 70 20 120/76 99 Room Air 04/24/17 13:45 97.0 04/24/17 12:39 97.0 76 20 127/69 100 Room Air 04/24/17 08:55 97.3 69 20 147/83 96 Room Air 04/24/17 04:24 96.6 72 20 142/76 95 Room Air 04/24/17 00:00 97.7 73 18 141/79 99 Room Air 04/23/17 20:00 97.7 72 18 137/79 100 Room Air Intake and Output 04/23/17 04/24/17 19:00 07:00 Intake Total 750 ml 600 ml Balance 750 ml 600 ml Intake Oral 250 ml IV Total 500 ml 600 ml # Voids 1 7 # Bowel Movements 2 General Appearance: WD/WN HEENT: normocephalic Respiratory/Chest: chest wall non-tender Breasts: no masses Cardiovascular: normal peripheral pulses Abdomen: normal bowel sounds, soft, non tender Genitourinary: normal external genitalia Neurologic/Psychiatric: healthcare science specialist II-XII grossly normal Microbiology Date/Time Source Procedure Growth Status 04/22/17 20:45 Urine,Clean Catch Urine Culture - Preliminary Mixed Gram Positive Organism Resulted Laboratory Tests 04/24/17 04:50: White Blood Count 5.6, Red Blood Count 4.40, Hemoglobin 11.6L, Hematocrit 36.4L , Mean Corpuscular Volume 83, Mean Corpuscular Hemoglobin 26.3L, Mean Corpuscular Hemoglobin Concent 31.7L, Red Cell Distribution Width 13.5, Platelet Count 271, Mean Platelet Volume 8.7, Neutrophils (%) (Auto) 36.1L, Lymphocytes (%) (Auto) 49.4H, Monocytes (%) (Auto) 7.3, Eosinophils (%) (Auto) 6.0H, Basophils (%) (Auto) 1.3, Erythrocyte Sedimentation Rate 26, Reticulocyte Count 2.1H, Prothrombin Time 10.6, Prothromb Time International Ratio 1.0, Activated Partial Thromboplast Time 30, Sodium Level 138, Potassium Level 4.1, Chloride Level 103, Carbon Dioxide Level 25, Anion Gap 10, Blood Urea Nitrogen 11, Creatinine 0.6, Estimat Glomerular Filtration Rate > 60, Glucose Level 151H , Hemoglobin A1c 7.2H, Calcium Level 9.0, Phosphorus Level 3.5, Magnesium Level 2.0, Iron Level 105, Total Iron Binding Capacity 308, Percent Iron Saturation 34 , Unsaturated Iron Binding 203, Ferritin 128, Total Bilirubin 0.6, Aspartate Amino Transf (AST/SGOT) 24, Alanine Aminotransferase (ALT/SGPT) 29, Alkaline Phosphatase 66, C-Reactive Protein, Quantitative 0.5, Total Protein 6.7, Albumin 4.0, Globulin 2.7, Albumin/Globulin Ratio 1.4, Amylase Level 39, Lipase 12, Carcinoembryonic Antigen 2.5, Vitamin B12 Level 247, Folate [Pending], Thyroid Stimulating Hormone (TSH) 1.860, Free Thyroxine 1.06 04/24/17 14:00: Stool Occult Blood Negative Current Medications Medications (Trade) Dose Ordered Sig/Jaya Route PRN Reason Start Time Stop Time Status Last Admin Dose Admin Acetaminophen (Tylenol) 650 mg Q4H PRN ORAL T>100.5 04/23/17 07:00 05/23/17 06:59 Al Hydroxide/Mg Hydroxide (Mylanta II) 30 ml Q6H PRN ORAL dyspepsia 04/23/17 07:00 05/23/17 06:59 Dextrose (Dextrose 50%) STAT PRN IV Hypoglycemia 04/23/17 07:00 05/23/17 06:59 Diphenhydramine HCl (Benadryl) 25 mg Q6H PRN ORAL Itching/Pruritis 04/23/17 07:00 05/23/17 06:59 Heparin Sodium (Porcine) (Heparin 5000 units/ml) 5,000 units EVERY 12 HOURS SUBQ 04/23/17 09:00 05/23/17 08:59 04/24/17 09:15 Insulin Aspart (NovoLOG) BEFORE MEALS AND HS SUBQ 04/23/17 11:30 05/23/17 11:29 04/23/17 17:38 Ketorolac Tromethamine 30 mg 30 mg Q6H PRN IV Moderate Pain (Pain Scale 4-6) 04/23/17 07:00 04/28/17 06:59 04/24/17 04:02 Morphine Sulfate (Morphine Sulfate) 2 mg Q4H PRN IVP Severe Pain (Pain Scale 7-10) 04/23/17 07:00 04/30/17 06:59 04/24/17 12:52 Nitroglycerin (Ntg) 0.4 mg Q5M X 3 DOSES PRN SL Prn Chest Pain 04/23/17 07:00 05/23/17 06:59 Ondansetron HCl (Zofran) 4 mg Q6H PRN IVP Nausea & Vomiting 04/23/17 07:00 05/23/17 06:59 Polyethylene Glycol (Miralax) 17 gm HSPRN PRN ORAL Constipation 04/23/17 07:00 05/23/17 06:59 Sodium Chloride (Sodium Chloride 1000ml bag) 1,000 ml @ 50 mls/hr Q20H IV 04/23/17 07:30 05/23/17 07:29 04/24/17 04:01 Temazepam (Restoril) 15 mg HSPRN PRN ORAL Insomnia 04/23/17 21:00 04/30/17 20:59 TC BOND Apr 24, 2017 18:21
[2017-04-24 20:02] VITALS: BP 152/89
[2017-04-25] VITALS (9 sets, daily range): BP systolic 116–146; BP diastolic 66–86
[2017-04-25] MEDS: Morphine Sulfate 2mg/ml Inj IVP PRN ×3 (00:31→12:07)
[2017-04-25] MEDS: NovoLOG Insulin Flexpen SUBQ SCH ×2 (04:58→11:09)
--- NOTE | 2017-04-25 06:09 | Anethesia Preoperative Eval ---
Anesthesia Pre-op PMH/ROS General Date of Evaluation: Apr 25, 2017 Time of Evaluation: 06:05 Anesthesiologist: black ASA Score: ASA 3 Mallampati Score Class I : Soft palate, uvula, fauces, pillars visible Class II: Soft palate, uvula, fauces visible Class III: Soft palate, base of uvula visible Class IV: Only hard plate visible Mallampati Classification: Class II Surgeon: gilberto Diagnosis: abdominal pain Surgical Procedure: egd/colonoscopy Anesthesia History: none Social History: smoking - former smoker Family History: no anesthesia problems Allergies: Coded Allergies: No Known Allergies (Unverified , 08/25/13) Medications: see eMAR Past Medical History Cardiovascular: Reports: HTN Gastrointestinal/Genitourinary: Reports: other - abdominal pain, hysterectomy, lmp 1996 Endocrine: Reports: DM Musculoskeletal/Integumentary: Reports: other - carpal tunnel syndrome Other: obesity PSxH Narrative: left foot surgery, hysterectomy, Anesthesia Pre-op Phys. Exam Physician Exam Last Vital Signs Date Time Temp Pulse Resp B/P (MAP) Pulse Ox O2 Delivery O2 Flow Rate FiO2 04/25/17 04:00 97.0 75 18 134/79 97 Room Air Constitutional: NAD Neurologic: CN 2-12 intact Cardiovascular: RRR Respiratory: CTA Gastrointestinal: S/NT/ND Airway Exam Mallampati Score: Class II MO: full Neck: supple TMD: 2fb ROM: full Teeth: intact Anesthesia Pre-op A/P Labs Labs Test 04/22/17 20:45 04/24/17 04:50 04/24/17 14:00 White Blood Count 9.3 K/UL (4.8-10.8) 5.6 K/UL (4.8-10.8) Red Blood Count 4.43 M/UL (4.20-5.40) 4.40 M/UL (4.20-5.40) Hemoglobin 11.9 G/DL (12.0-16.0) 11.6 G/DL (12.0-16.0) Hematocrit 36.2 % (37.0-47.0) 36.4 % (37.0-47.0) Mean Corpuscular Volume 82 FL (80-99) 83 FL (80-99) Mean Corpuscular Hemoglobin 26.9 PG (27.0-31.0) 26.3 PG (27.0-31.0) Mean Corpuscular Hemoglobin Concent 32.9 G/DL (32.0-36.0) 31.7 G/DL (32.0-36.0) Red Cell Distribution Width 14.0 % (11.6-14.8) 13.5 % (11.6-14.8) Platelet Count 294 K/UL (150-450) 271 K/UL (150-450) Mean Platelet Volume 7.8 FL (6.5-10.1) 8.7 FL (6.5-10.1) Neutrophils (%) (Auto) 50.9 % (45.0-75.0) 36.1 % (45.0-75.0) Lymphocytes (%) (Auto) 38.5 % (20.0-45.0) 49.4 % (20.0-45.0) Monocytes (%) (Auto) 5.7 % (1.0-10.0) 7.3 % (1.0-10.0) Eosinophils (%) (Auto) 3.6 % (0.0-3.0) 6.0 % (0.0-3.0) Basophils (%) (Auto) 1.4 % (0.0-2.0) 1.3 % (0.0-2.0) Prothrombin Time 10.3 SEC (9.30-11.50) 10.6 SEC (9.30-11.50) Prothromb Time International Ratio 1.0 (0.9-1.1) 1.0 (0.9-1.1) Activated Partial Thromboplast Time 29 SEC (23-33) 30 SEC (23-33) Urine Color Fay Urine Appearance Slightly cloudy Urine pH 5 (4.5-8.0) Urine Specific Chavies 1.025 (1.005-1.035) Urine Protein Negative (NEGATIVE) Urine Glucose (UA) 1+ (NEGATIVE) Urine Ketones 1+ (NEGATIVE) Urine Occult Blood Negative (NEGATIVE) Urine Nitrite Negative (NEGATIVE) Urine Bilirubin Negative (NEGATIVE) Urine Ictotest Negative Urine Urobilinogen 1 MG/DL (0.0-1.0) Urine Leukocyte Esterase 1+ (NEGATIVE) Urine RBC 0-2 /HPF (0 - 2) Urine WBC 5-10 /HPF (0 - 2) Urine Squamous Epithelial Cells Many /LPF (NONE/OCC) Urine Bacteria Moderate /HPF (NONE) Sodium Level 141 mEQ/L (135-145) 138 mEQ/L (135-145) Potassium Level 4.0 mEQ/L (3.4-4.9) 4.1 mEQ/L (3.4-4.9) Chloride Level 103 mEQ/L (98-107) 103 mEQ/L (98-107) Carbon Dioxide Level 25 mEQ/L (20-30) 25 mEQ/L (20-30) Anion Gap 13 (5-15) 10 (5-15) Blood Urea Nitrogen 17 mg/dL (7-23) 11 mg/dL (7-23) Creatinine 0.8 mg/dL (0.5-0.9) 0.6 mg/dL (0.5-0.9) Estimat Glomerular Filtration Rate > 60 mL/min (>60) > 60 mL/min (>60) Glucose Level 131 mg/dL (74-106) 151 mg/dL (74-106) Calcium Level 9.6 mg/dL (8.6-10.2) 9.0 mg/dL (8.6-10.2) Total Bilirubin 0.3 mg/dL (0.0-1.2) 0.6 mg/dL (0.0-1.2) Aspartate Amino Transf (AST/SGOT) 21 U/L (5-40) 24 U/L (5-40) Alanine Aminotransferase (ALT/SGPT) 27 U/L (3-33) 29 U/L (3-33) Alkaline Phosphatase 71 U/L (35-104) 66 U/L (35-104) Total Protein 7.6 g/dL (6.6-8.7) 6.7 g/dL (6.6-8.7) Albumin 4.7 g/dL (3.5-5.2) 4.0 g/dL (3.5-5.2) Globulin 2.9 g/dL 2.7 g/dL Albumin/Globulin Ratio 1.6 (1.0-2.7) 1.4 (1.0-2.7) Lipase 14 U/L (< 60) 12 U/L (< 60) Erythrocyte Sedimentation Rate 26 MM/HR (0-30) Reticulocyte Count 2.1 % (0.0-2.0) Hemoglobin A1c 7.2 % (< 6.0) Phosphorus Level 3.5 mg/dL (2.5-4.8) Magnesium Level 2.0 mg/dL (1.7-2.5) Iron Level 105 ug/dL (37-145) Total Iron Binding Capacity 308 ug/dL (250-400) Percent Iron Saturation 34 % (15-50) Unsaturated Iron Binding 203 ug/dL (112-346) Ferritin 128 ng/mL (13-150) C-Reactive Protein, Quantitative 0.5 mg/dL (< 0.5) Amylase Level 39 U/L (10-110) Carcinoembryonic Antigen 2.5 ng/mL Vitamin B12 Level 247 pg/mL (211-946) Thyroid Stimulating Hormone (TSH) 1.860 uIU/mL (0.300-4.500) Free Thyroxine 1.06 ng/dL (0.86-1.85) Stool Occult Blood Negative (NEGATIVE) Risk Assessment & Plan Assessment: asa3 Plan: mac Status Change Before Surgery: No Pre-Antibiotics Drug: RIYA Gerardo Apr 25, 2017 06:09
[2017-04-25 06:25] LABS: BASOPHILS % (AUTO) 1.5 % (0.0-2.0); LYMPHOCYTES % (AUTO) 44.3 % (20.0-45.0); MEAN CORPUSCULAR HEMOGLOBIN 26.3 PG (27.0-31.0); MEAN CORPUSCULAR HGB CONC 31.9 G/DL (32.0-36.0); MEAN CORPUSCULAR VOLUME 83 FL (80-99); MEAN PLATELET VOLUME 8.7 FL (6.5-10.1); NEUTROPHILS % (AUTO) 40.3 % (45.0-75.0); PLATELET COUNT 271 K/UL (150-450); RED BLOOD COUNT 4.35 M/UL (4.20-5.40); RED CELL DISTRIBUTION WIDTH 13.6 % (11.6-14.8); WHITE BLOOD COUNT 6.3 K/UL (4.8-10.8)
[2017-04-25 06:38] LABS: PROTHROMBIN TIME 10.7 SEC (9.30-11.50)
[2017-04-25 06:50] LABS: ANION GAP 9 (5-15); CALCIUM 9.3 mg/dL (8.6-10.2); CARBON DIOXIDE 27 mEQ/L (20-30); CHLORIDE 104 mEQ/L (98-107); CREATININE 0.6 mg/dL (0.5-0.9); GLOMERULAR FILTRATION RATE > 60 mL/min (>60); HEMOLYSIS 0; POTASSIUM 3.9 mEQ/L (3.4-4.9); SODIUM 140 mEQ/L (135-145)
[2017-04-25] MEDS: Heparin 5000 units/ml inj SUBQ SCH (08:45)
[2017-04-25] MEDS ORDERED: Lidocaine 1% MPF 10mg/ml 5ml ONE (12:45)
[2017-04-25] MEDS ORDERED: Propofol 10mg/ml 20ml IV ONE (12:45)
[2017-04-25] MEDS ORDERED: NS 550ML IV ONE (12:50)
--- NOTE | 2017-04-25 12:54 | Pre-Procedure Note/Attestation ---
Pre-Procedure Note/Attestation Complete Prior to Procedure Planned Procedure: not applicable Procedure Narrative: esophagogastroduodenoscopy and colonoscopy Indications for Procedure Pre-Operative Diagnosis: anemia, abd pain Attestation I attest that I discussed the nature of the procedure; its benefits; risks and complications; and alternatives (and the risks and benefits of such alternatives ), prior to the procedure, with the patient (or the patient's legal associate sales representative). I attest that, if there was a reasonable possibility of needing a blood transfusion, the patient (or the patient's legal associate sales representative) was given the [facility] standardized written summary, pursuant to the Shun Jen Blood Safety Act ([place] Health and Safety Code # 1645, as amended). I attest that I re-evaluated the patient just prior to the surgery and that there has been no change in the patient's H&P, except as documented below: ANNE GA Apr 25, 2017 12:54
--- NOTE | 2017-04-25 13:00 | Endoscopy Procedure Note ---
Endoscopy Procedure Note Indication for Procedure: anemia abd pain Procedures Performed: EGD, colonoscopy Operative Findings/Diagnosis: gastritis, hemorrhoids Specimen: yes Pt Tolerated Procedure Well: Yes Estimated Blood Loss: none Anesthesiologist: bebeto Anesthesia: MAC Implant(s) used?: No 50 yrs or older w/o bx or poly: Not Applicable 10yrs. F/U not recommended: Not Applicable ANNE GA Apr 25, 2017 13:00
[2017-04-25] MEDS ORDERED: Midazolam 2mg/2ml Inj IVP PRN (13:30)
[2017-04-25] MEDS ORDERED: Atropine Inj 1mg/10ml Syr IV PRN (13:30)
[2017-04-25] MEDS ORDERED: Hydromorphone 0.5mg/0.5ml inj IVP PRN (13:30)
[2017-04-25] MEDS ORDERED: DiphenhydrAMINE 50mg/ml Inj IVP PRN (13:30)
--- NOTE | 2017-04-25 13:39 | Immediate Post-Op Evaluation ---
Immediate Post-Op Evalulation Immediate Post-Op Evalulation Procedure: egd/colonoscopy Date of Evaluation: Apr 25, 2017 Time of Evaluation: 13:37 IV Fluids: 0.9ns 200ml Blood Products: none Estimated Blood Loss: negligible Blood Pressure Systolic: 116 Blood Pressure Diastolic: 78 Pulse Rate: 75 Respiratory Rate: 18 O2 Sat by Pulse Oximetry: 99 Temperature (Fahrenheit): 97.7 Pain Score (1-10): 0 Nausea: No Vomiting: No Complications none Patient Status: awake, reacts, patent Hydration Status: adequate Drug: RIYA Gerardo Apr 25, 2017 13:39
--- NOTE | 2017-04-25 13:40 | 48 Hour Post Anesthesia Eval ---
Post Anesthesia Evaluation Procedure: egd/colonoscopy Date of Evaluation: Apr 25, 2017 Time of Evaluation: 13:39 Blood Pressure Systolic: 124 0: 83 Pulse Rate: 65 Respiratory Rate: 18 Temperature (Fahrenheit): 97.7 O2 Sat by Pulse Oximetry: 100 Airway: patent Nausea: No Vomiting: No Pain Intensity: 0 Hydration Status: adequate Cardiopulmonary Status: stable Mental Status/LOC: patient returned to baseline Post-Anesthesia Complications: none Follow-up care needed: N/A RIYA DALTON Apr 25, 2017 13:40
[2017-04-25] MEDS ORDERED: ACETAMINOPHEN-1 EAC1 ORAL (14:27)
--- NOTE | 2017-04-26 06:15 | Procedure Note ---
DATE OF PROCEDURE: 04/25/2017 SURGEON: Carlos Alberto Lambert M.D. PROCEDURE: Upper endoscopy with biopsy and colonoscopy with biopsy. ANESTHESIOLOGIST: Kate Montana M.D. INSTRUMENT: Olympus adult flexible upper endoscope and colonoscope. INDICATION: Anemia and abdominal pain. REASON FOR PROCEDURE: The procedure, risks, benefits, and possible consequences, including hemorrhage, aspiration, perforation and infection, and alternative treatments, were explained to the patient/legal guardian by Dr. Carlos Alberto Lambert and the patient/legal guardian understood and accepted these risks. PROCEDURE: After informed consent was obtained, the patient was adequately sedated, Olympus upper endoscope was advanced from mouth into the second portion of duodenum and retroflexion was performed of the stomach. The patient shallow erosion in the antrum of the stomach. Random biopsy from antrum was obtained to rule out H. pylori infection. Otherwise, the rest of the endoscopic examination grossly looked within normal limits. At this time, the upper endoscope was retrieved and the patient was turned over for colonoscopy. First, a rectal exam was performed, which was positive for internal hemorrhoid and then the scope was advanced from rectum into the cecum documented by appendiceal orifice, ileocecal valve, and right upper quadrant palpation. Quality of prep was very good. The patient had some scattered diverticulosis. The patient had two diminutive polyps in the sigmoid and two diminutive polyps in the rectum, both removed with the cold biopsy forceps technique. Retroflexion of rectum showed evidence of large internal hemorrhoids. SUMMARY FINDINGS: 1. Gastritis and gastric erosions, status post biopsy. 2. Large internal hemorrhoids. 3. Four colonic polyps removed, see above for details. 4. Diverticulosis. RECOMMENDATIONS: 1. Follow up biopsies and treat accordingly. 2. We will recommend colonoscopy in three years given more than three polyps. I want to thank Dr. Cole for this kind referral. Carlos Alberto Lambert M.D. DR: NAREN JOB#: [id number] CC: Elsa Cole M.D.; Fax#: [phone]
--- NOTE | 2017-04-26 16:33 | Discharge Summary ---
Discharge Summary Hospital Course Date of Admission Apr 22, 2017 at 23:42 Date of Discharge Apr 25, 2017 at 15:57 Admitting Diagnosis abdominal pain HPI Lily Simon is a 62 year old female who was admitted on Apr 22, 2017 at 23:42 for Abdominal Pain Hospital Course [id number] Discharge Discharge Disposition Patient was discharged to Home (01) Discharge Diagnoses: Ellie Flores NP Apr 26, 2017 16:33
--- NOTE | 2017-04-26 21:23 | Cardiology Report ---
APPROVED REPORT EKG Measurement Heart [id number] Normal sinus rhythm Left axis deviation Right bundle branch block Inferior infarct, age undetermined Abnormal ECG
--- NOTE | 2017-04-27 06:46 | Discharge Summary 2 SIG ---
DATE OF ADMISSION: 04/22/2017 DATE OF DISCHARGE: 04/25/2017 DEVELOPMENT TECHNICIAN: Carlos Alberto Lambert M.D. BRIEF HOSPITAL COURSE: The patient is a 62-year-old female, who presented to ED complaining of lower abdominal pain, described to be cramping, severe and radiates to the back. She also had nausea without any vomiting and there was no reported change in her bowel habits. She had a knee surgery a month prior and has been taking Naprosyn and had a history of small bowel obstruction in the past with partial hysterectomy. On evaluation at ED, she was given IV hydration, Zofran and morphine. Morphine did not help with the pain, Dilaudid was ordered. Laboratories showed normal WBC. Urinalysis showed pyuria. She had was placed on NPO and was admitted to medical floor for evaluation of intractable pain with chronic NSAID use, diabetes and hypertension. She underwent GI evaluation. CT of the abdomen and pelvis showed fatty liver with normal appendix and diverticulosis. Abdominal ultrasound again showed fatty liver, otherwise negative. She was given proton-pump inhibitors and underwent upper endoscopy with biopsy and colonoscopy on 04/25/[address] Lambert, findings showed gastritis with gastric erosions, a large internal hemorrhoid, diverticulosis and four colonic polyps, which were removed. She was given regular diet and was tolerating diet. She was eventually discharged home. FINAL DIAGNOSES: 1. Intractable abdominal pain. 2. Diabetes mellitus. 3. Hypertension. 4. Chronic nonsteroidal antiinflammatory drug use. 5. Gastritis with gastric erosions. 6. Large internal hemorrhoids. 7. Diverticulosis. 8. Colonic polyps status post removal. PROCEDURE PERFORMED: Upper endoscopy with biopsy and colonoscopy with biopsy on 04/25/2017. DISPOSITION: The patient was discharged home. MEDICATIONS: Refer to medication list. FOLLOWUP: The patient was advised to follow up with PMD in a week. ACTIVITY: As tolerated. Elsa Cole M.D. I have been assigned to dictate discharge summary on this account and I was not involved in the patient's management. Ellie Flores N.P. DR: LORETTA JOB#: [id number] CC: ELENO
== END 2017-04-25 15:57 | disposition home or self-care (01) | DRG 251 ==
LOC: EMR 20:41 → 4W 23:42 → EDBEDREQ 04-23 00:54
PROC: 0DBN8ZZ Excision of Sigmoid Colon, Via Natural or Artificial Opening Endoscopic (ICD-10-PCS; 2017-04-25)
PROC: 0DB78ZX Excision of Stomach, Pylorus, Via Natural or Artificial Opening Endoscopic, Diagnostic (ICD-10-PCS; principal; 2017-04-25 12:57)
PROC: 0DBP8ZZ Excision of Rectum, Via Natural or Artificial Opening Endoscopic (ICD-10-PCS; 2017-04-25 12:57)
DX: R10.30 Lower abdominal pain, unspecified (principal); K76.0 Fatty (change of) liver, not elsewhere classified; I10 Essential (primary) hypertension; E11.9 Type 2 diabetes mellitus without complications; D64.9 Anemia, unspecified; K57.90 Diverticulosis of intestine, part unspecified, without perforation or abscess without bleeding; Z79.1 Long term (current) use of non-steroidal anti-inflammatories (NSAID); K29.60 Other gastritis without bleeding; K64.8 Other hemorrhoids; K63.5 Polyp of colon; Z87.891 Personal history of nicotine dependence
CPT/HCPCS: 36415; 74177; 76700; 80048; 80053; 81003; 82150; 82270; 82378; 82607; 82728; 82746; 82962; 83036; 83540; 83550; 83690; 83735; 84100; 84439; 84443; 85025; 85044; 85610; 85651; 85730; 86140; 86850; 86900; 86901; 87086; 93005; 93970; 94003; 94150; J1815; J2405

== ENCOUNTER 2017-07-16 12:53 | Inpatient (IN) | payer OTHER ==
[~2017-07-16] VITALS: Ht 165.1 cm; Wt 88.5 kg
[2017-07-16] VITALS (7 sets, daily range): BP systolic 110–150; BP diastolic 72–97
[~2017-07-16 12:53] MED LIST changes: +ACETAMINOPHEN-1 EAC1 ORAL
--- NOTE | 2017-07-16 13:35 | Emergency Room Report ---
History of Present Illness General Chief Complaint: Abdominal Pain Source: Patient (KENYATTA TEMPLE M.D.) Present Illness HPI 62YOF with recurrent central/suprapubic abd pain for 3-4 days No associated nausea/vomiting, fever/chills, diarrhea, urinary complaints Was here in April - had CT and Sono which showed fatty liver. No other acute findings to explain pain No sick contacts or foreign travel (KENYATTA TEMPLE M.D.) Allergies: Coded Allergies: No Known Allergies (Unverified , 08/25/13) Patient History Past Medical History: other - fatty liver Past Surgical History: none Pertinent Family History: none Social History: Denies: smoking, alcohol use, drug use Now: No Immunizations: UTD Reviewed Nursing Documentation: PMH: Agreed, PSxH: Agreed (KENYATTA TEMPLE M.D.) Nursing Documentation-PMH Hx Cardiac Problems: No Hx Hypertension: Yes Hx Pacemaker: No Hx Asthma: No Hx COPD: No Hx Diabetes: Yes Hx Cancer: No Hx Gastrointestinal Problems: Yes Hx Dialysis: No History Of Psychiatric Problem: No Hx Neurological Problems: No Hx Cerebrovascular Accident: No Hx Seizures: No (KENYATTA TEMPLE M.D.) Review of Systems All Other Systems: negative except mentioned in HPI (KENYATTA TEMPLE M.D.) Physical Exam Vital Signs Date Time Temp Pulse Resp B/P (MAP) Pulse Ox O2 Delivery O2 Flow Rate FiO2 07/16/17 13:03 98.1 80 16 130/80 98 Room Air Sp02 EP Interpretation: reviewed, normal General Appearance: normal inspection, well appearing, no apparent distress, alert, GCS 15, non-toxic, obese Head: normocephalic Eyes: bilateral eye PERRL, bilateral eye EOMI ENT: normal ENT inspection, hearing grossly normal, normal voice Neck: normal inspection, full range of motion, supple, no bony tend Respiratory: normal inspection, lungs clear, normal breath sounds, no respiratory distress, no retraction, no accessory muscle use, no wheezing, speaking full sentences Cardiovascular #1: regular rate, rhythm, no edema Gastrointestinal: normal inspection, normal bowel sounds, soft, non-distended, no guarding, no hernia, other - Very large pannus, ttp central pannus, suprapubic salvador Genitourinary: no CVA tenderness Musculoskeletal: normal inspection, back normal, normal range of motion, [place]' s Sign negative Neurologic: normal inspection, alert, oriented x3, responsive, beaver trapper III-XII nml as tested, motor strength/tone normal, speech normal Psychiatric: normal inspection, judgement/insight normal, mood/affect normal Skin: normal inspection, normal color, no rash (KENYATTA TEMPLE M.D.) Medical Decision Making Diagnostic Impression: Primary Impression: Abdominal pain Qualified Codes: R10.84 - Generalized abdominal pain ER Course Generalized abd pain VSS. Afebrile No peritonitis low suspicion for acute bacterial or surgical process given recent negative workup Endorsed to Dr Page at 2pm to followup labs ,re-evaluate patient (KENYATTA TEMPLE M.D.) ER Course Received signout 62-year-old female with abdominal pain for 4 days. Patient states that she has felt this similar pain intermittently for the last couple months, in April she was admitted and had an endoscopy colonoscopy performed which showed severe gastritis. Patient stating that her diet is not good, she used to smoke, is not on any antacid or PPIs at home. Has not seen a barrel and receiver aligner Patient stating that this is a similar pain that she has felt in the past, states it is a burning pain, points to suprapubic area as well as epigastric area labs revealing a troponin of 0.099 EKG showing right bundle branch block, T wave inversion in V3, all these findings are similar to EKG in April Patient denying history of chest pain shortness of breath palpitations diaphoresis States that she feels much better with Pepcid Pt given GI cocktail She continues to have increased abdominal pain, ct SCAN negative Elevated troponin initially was 0.990 0.1. No baseline.I will not start patient on heparin at this time as my suspicion for acs is very low, no significant interval elevation We will admit for elevated troponin and intractable abdominal pain Chest X-ray CXR: Ordered: Yes 1 view Indication: abd pain EP interpretation: Yes Interpretation: No consolidation, no effusion, no PTX, no acute cardiopulmonary disease Impression: No acute disease Electronically signed by Jerome Page MD (Jerome Page M.D.) CT/MRI/US Diagnostic Results CT/MRI/US Diagnostic Results : Imaging Test Ordered: CT abdo pelvis Impression CT ABDOMEN & PELVIS With Contrast: Unremarkable appendix. No colitis, diverticulitis or bowel obstruction. Fatty liver. Cholecystectomy. Hysterectomy. Mild patchy infiltrates in the lung bases (Jerome Page M.D.) Last Vital Signs Date Time Temp Pulse Resp B/P (MAP) Pulse Ox O2 Delivery O2 Flow Rate FiO2 07/16/17 13:03 98.1 80 16 130/80 98 Room Air (KENYATTA TEMPLE M.D.) Disposition: ADMITTED INPATIENT Condition: Serious Referrals: [facility],REFERRING (PCP) KENYATTA TEMPLE M.D. Jul 16, 2017 13:35 Jerome Page M.D. Jul 16, 2017 14:40
[2017-07-16 13:50] LABS: APPEARANCE,URINE CLEAR; BASOPHILS % (AUTO) 1.2 % (0.0-2.0); EOSINOPHILS % (AUTO) 3.6 % (0.0-3.0); KETONES,URINE NEGATIVE (NEGATIVE); LEUKOCYTE ESTERASE ,URINE NEGATIVE (NEGATIVE); LYMPHOCYTES % (AUTO) 37.2 % (20.0-45.0); MEAN CORPUSCULAR HGB CONC 30.3 G/DL (32.0-36.0); MEAN CORPUSCULAR VOLUME 82 FL (80-99); MEAN PLATELET VOLUME 8.8 FL (6.5-10.1); NITRITE,URINE NEGATIVE (NEGATIVE); PH,URINE 5 (4.5-8.0); PLATELET COUNT 284 K/UL (150-450); PROTEIN,URINE NEGATIVE (NEGATIVE); RED BLOOD COUNT 5.09 M/UL (4.20-5.40); RED CELL DISTRIBUTION WIDTH 14.2 % (11.6-14.8); UROBILINOGEN,URINE NORMAL MG/DL (0.0-1.0); WHITE BLOOD COUNT 8.2 K/UL (4.8-10.8)
[2017-07-16 14:13] LABS: ANION GAP 9 mmol/L (5-15); CALCIUM 9.4 MG/DL (8.5-10.1); CARBON DIOXIDE 27 MMOL/L (21-32); CHLORIDE 102 MMOL/L (98-107); GLOMERULAR FILTRATION RATE > 60 mL/min (>60); POTASSIUM 4.1 MMOL/L (3.5-5.1); SODIUM 138 MMOL/L (136-145)
[2017-07-16 14:25] LABS: ALANINE AMINOTRANSFERASE 36 U/L (12-78); ALBUMIN/GLOBULIN RATIO 0.9 (1.0-2.7); ASPARTATE AMINO TRANSFERASE 19 U/L (15-37); LIPASE 119 U/L (73-393); TOTAL PROTEIN 8.2 G/DL (6.4-8.2)
[2017-07-16] MEDS ORDERED: Mylanta II UD 30ml ORAL ONE (14:30)
[2017-07-16] MEDS ORDERED: Dicyclomine HCl 10mg/5ml oral soln ORAL ONE (14:30)
[2017-07-16] MEDS ORDERED: Lidocaine 2% Visc 15ml soln ORAL ONE (14:30)
--- NOTE | 2017-07-16 15:37 | Diagnostic Imaging Report ---
Indication: PAIN Technique: One view of the chest Comparison: none Findings: No acute infiltrates, effusions, or congestion. Tortuous calcified aorta. Normal heart size. Upper mediastinum unremarkable. Impression: No acute process.
[2017-07-16 16:29] LABS: INR 0.9 (0.9-1.1); PROTHROMBIN TIME 9.9 SEC (9.30-11.50)
[2017-07-16] MEDS ORDERED: Morphine Sulfate 4mg/ml Inj IVP ONE ×2 (16:30→19:45)
[2017-07-16] MEDS ORDERED: Potassium Chloride 10 MEQ in NS 1000ml 1,000 ML IV SCH (21:45)
[2017-07-16] MEDS ORDERED: Zolpidem 5mg tab ORAL PRN (22:00)
[2017-07-16] MEDS ORDERED: Mylanta II UD 30ml ORAL PRN (22:00)
[2017-07-16] MEDS ORDERED: LORazepam Inj 2mg/ml 1ml IV PRN (22:00)
[2017-07-16] MEDS ORDERED: Miralax 17gm pkt ORAL PRN (22:00)
[2017-07-16] MEDS: Morphine Sulfate 4mg/ml Inj IVP PRN (23:37)
[2017-07-17] VITALS: BP 134/82
[2017-07-17 04:00] VITALS: BP 138/72
[2017-07-17] MEDS: NovoLOG Insulin Flexpen SUBQ SCH ×4 (06:19→20:53)
[2017-07-17] MEDS: Morphine Sulfate 4mg/ml Inj IVP PRN ×3 (06:22→20:19)
[2017-07-17 07:33] LABS: EOSINOPHILS % (AUTO) 4.8 % (0.0-3.0); LYMPHOCYTES % (AUTO) 38.6 % (20.0-45.0); MEAN CORPUSCULAR HEMOGLOBIN 27.3 PG (27.0-31.0); MEAN CORPUSCULAR HGB CONC 33.4 G/DL (32.0-36.0); MEAN CORPUSCULAR VOLUME 82 FL (80-99); MEAN PLATELET VOLUME 9.2 FL (6.5-10.1); MONOCYTES % (AUTO) 7.6 % (1.0-10.0); PLATELET COUNT 266 K/UL (150-450); RED BLOOD COUNT 4.58 M/UL (4.20-5.40); RED CELL DISTRIBUTION WIDTH 13.7 % (11.6-14.8); WHITE BLOOD COUNT 6.8 K/UL (4.8-10.8)
--- NOTE | 2017-07-17 08:36 | Consultation ---
History of Present Illness General Date patient seen: Jul 17, 2017 Present Illness Allergies: Coded Allergies: No Known Allergies (Unverified , 08/25/13) Medication History Scheduled Ciprofloxacin* (Cipro*), 500 MG PO BID Losartan Potassium* (Losartan Potassium*), Unknown Dose ORAL DAILY, (Reported) Metformin Hcl* (Metformin Hcl*), 1,000 MG ORAL BID, (Reported) Ranitidine Hcl* (Zantac*), Unknown Dose ORAL DAILY, (Reported) Scheduled PRN Acetaminophen With Codeine (T#3) (Tylenol #3 Tab*), 1 TAB ORAL Q4H PRN Tramadol Hcl* (Ultram*), 50 MG ORAL Q6H PRN for For Pain Patient History Healthcare decision maker Resuscitation status Full Code Advanced Directive on File No Physical Exam Last 24 Hour Vital Signs Date Time Temp Pulse Resp B/P (MAP) Pulse Ox O2 Delivery O2 Flow Rate FiO2 07/17/17 04:16 75 07/17/17 04:00 97.9 75 20 138/72 100 Room Air 07/17/17 00:51 62 07/17/17 00:00 97.5 65 20 134/82 100 Room Air 07/16/17 22:35 42 22 133/86 Nasal Cannula 2.0 07/16/17 22:35 96.8 110 22 133/86 97 Nasal Cannula 4.0 07/16/17 22:35 100 20 127/85 100 Room Air 07/16/17 22:21 98.5 67 18 150/78 99 Room Air 07/16/17 22:04 98.5 67 18 150/78 99 Room Air 07/16/17 20:45 98.5 07/16/17 19:35 97.9 67 18 145/97 99 Room Air 07/16/17 17:25 98.5 74 18 145/85 99 Room Air 07/16/17 14:38 98.5 74 18 132/78 99 Room Air 07/16/17 13:56 98.5 18 110/72 99 Room Air 07/16/17 13:30 98.3 74 20 131/89 100 Room Air 07/16/17 13:03 98.1 80 16 130/80 98 Room Air Laboratory Tests Test 07/16/17 13:35 07/16/17 16:05 07/17/17 06:30 White Blood Count 8.2 K/UL (4.8-10.8) 6.8 K/UL (4.8-10.8) Red Blood Count 5.09 M/UL (4.20-5.40) 4.58 M/UL (4.20-5.40) Hemoglobin 12.7 G/DL (12.0-16.0) 12.5 G/DL (12.0-16.0) Hematocrit 42.0 % (37.0-47.0) 37.4 % (37.0-47.0) Mean Corpuscular Volume 82 FL (80-99) 82 FL (80-99) Mean Corpuscular Hemoglobin 25.0 PG (27.0-31.0) L 27.3 PG (27.0-31.0) Mean Corpuscular Hemoglobin Concent 30.3 G/DL (32.0-36.0) L 33.4 G/DL (32.0-36.0) Red Cell Distribution Width 14.2 % (11.6-14.8) 13.7 % (11.6-14.8) Platelet Count 284 K/UL (150-450) 266 K/UL (150-450) Mean Platelet Volume 8.8 FL (6.5-10.1) 9.2 FL (6.5-10.1) Neutrophils (%) (Auto) 51.0 % (45.0-75.0) 48.0 % (45.0-75.0) Lymphocytes (%) (Auto) 37.2 % (20.0-45.0) 38.6 % (20.0-45.0) Monocytes (%) (Auto) 7.0 % (1.0-10.0) 7.6 % (1.0-10.0) Eosinophils (%) (Auto) 3.6 % (0.0-3.0) H 4.8 % (0.0-3.0) H Basophils (%) (Auto) 1.2 % (0.0-2.0) 1.0 % (0.0-2.0) Urine Color Pale yellow Urine Appearance Clear Urine pH 5 (4.5-8.0) Urine Specific [place] 1.025 (1.005-1.035) Urine Protein Negative (NEGATIVE) Urine Glucose (UA) 3+ (NEGATIVE) H Urine Ketones Negative (NEGATIVE) Urine Occult Blood Negative (NEGATIVE) Urine Nitrite Negative (NEGATIVE) Urine Bilirubin Negative (NEGATIVE) Urine Urobilinogen Normal MG/DL (0.0-1.0) Urine Leukocyte Esterase Negative (NEGATIVE) Sodium Level 138 MMOL/L (136-145) Pending Potassium Level 4.1 MMOL/L (3.5-5.1) Pending Chloride Level 102 MMOL/L (98-107) Pending Carbon Dioxide Level 27 MMOL/L (21-32) Pending Anion Gap 9 mmol/L (5-15) Blood Urea Nitrogen 13 mg/dL (7-18) Pending Creatinine 1.0 MG/DL (0.55-1.30) Pending Estimat Glomerular Filtration Rate > 60 mL/min (>60) Pending Glucose Level 214 MG/DL (74-106) H Pending Lactic Acid Level 1.70 mmol/L (0.66-2.22) Calcium Level 9.4 MG/DL (8.5-10.1) Pending Total Bilirubin 0.4 MG/DL (0.2-1.0) Pending Aspartate Amino Transf (AST/SGOT) 19 U/L (15-37) Pending Alanine Aminotransferase (ALT/SGPT) 36 U/L (12-78) Pending Alkaline Phosphatase 75 U/L (46-116) Pending Troponin I 0.099 ng/mL (0.000-0.056) 0.103 ng/mL (0.000-0.056) Total Protein 8.2 G/DL (6.4-8.2) Pending Albumin 3.8 G/DL (3.4-5.0) Pending Globulin 4.4 g/dL Pending Albumin/Globulin Ratio 0.9 (1.0-2.7) L Lipase 119 U/L (73-393) Prothrombin Time 9.9 SEC (9.30-11.50) Prothromb Time International Ratio 0.9 (0.9-1.1) Activated Partial Thromboplast Time 29 SEC (23-33) Pro-B-Type Natriuretic Peptide 15 pg/mL (0-125) Thyroid Stimulating Hormone (TSH) Pending Height (Feet): 5 Height (Inches): 5.00 Weight (Pounds): 195 Medications Current Medications Medications (Trade) Dose Ordered Sig/Jaya Route PRN Reason Start Time Stop Time Status Last Admin Dose Admin Acetaminophen (Tylenol) 650 mg Q4H PRN ORAL fever 07/16/17 22:00 08/15/17 21:59 Al Hydroxide/Mg Hydroxide (Mylanta II) 30 ml Q6H PRN ORAL dyspepsia 07/16/17 22:00 08/15/17 21:59 Dextrose (Dextrose 50%) STAT PRN IV Hypoglycemia 07/16/17 22:00 08/15/17 21:59 Heparin Sodium (Porcine) (Heparin 5000 units/ml) 5,000 units EVERY 12 HOURS SUBQ 07/17/17 09:00 08/16/17 08:59 Insulin Aspart (NovoLOG) BEFORE MEALS AND HS SUBQ 07/17/17 06:30 08/16/17 06:29 07/17/17 06:19 Lorazepam (Ativan 2mg/ml 1ml) 0.5 mg Q4H PRN IV For Anxiety 07/16/17 22:00 07/23/17 21:59 Losartan Potassium (Cozaar) 10 mg DAILY ORAL 07/17/17 09:00 08/16/17 08:59 UNV Morphine Sulfate (Morphine Sulfate) 4 mg Q4H PRN IVP For Pain 7-10 07/16/17 22:00 07/23/17 21:59 07/17/17 06:22 Ondansetron HCl (Zofran) 4 mg Q6H PRN IVP Nausea & Vomiting 07/16/17 22:00 08/15/17 21:59 Polyethylene Glycol (Miralax) 17 gm HSPRN PRN ORAL Constipation 07/16/17 22:00 08/15/17 21:59 Zolpidem Tartrate (Ambien) 5 mg HSPRN PRN ORAL Insomnia 07/16/17 22:00 07/23/17 21:59 Assessment/Plan Assessment/Plan (1) Intractable abdominal pain (2) Gastritis (3) Lumbar DDD (4) Lumbar Spondylosis (5) Lumbar Radiculopathy (6) Right knee pain (7) H/o Right Total knee replacement seen dictated ALFONSO KAM Jul 17, 2017 08:36
[2017-07-17] MEDS ORDERED: Norco 7.5mg/325mg tab ORAL PRN (08:45)
[2017-07-17] MEDS ORDERED: Methocarbamol 500mg tab ORAL PRN (08:45)
--- NOTE | 2017-07-17 08:45 | Diagnostic Imaging Report ---
Clinical Indication: PAIN Abdominal pain, 62-year-old female with recurrent suprapubic abdominal pain for 3-4 days Technique: Patient given oral contrast. IV administration nonionic contrast. Venous phase spiral acquisition obtained through the abdomen and pelvis. Multiplanar reconstructions were generated. Total dose length product 1047 mGycm. CTDIvol(s) 19 mGy. Dose reduction achieved using automated exposure control Comparison: 04/22/2017 Findings: The appendix is normal. There are colonic diverticula. No evidence of acute diverticulitis. Ingested contrast is traversed entirety of the small bowel and signal in the colon. No small bowel distention. No small bowel wall thickening. No free or loculated intraperitoneal air or fluid is evident. Distal esophagus is unremarkable. The stomach is nondistended, so presence of wall thickening cannot be assessed. The gallbladder is surgically absent., Bile duct is mildly ectatic, unchanged. Liver demonstrates diffuse decreased attenuation, consistent with fatty change. No focal abnormality. The pancreas, spleen are unremarkable. There is an accessory splenule. Adrenals, kidneys are unremarkable. No retroperitoneal or mesenteric mass or adenopathy. There is a circumaortic left renal vein. The uterus is absent, presumably postsurgically. No pelvic mass or adenopathy. The included lung bases demonstrate stable opacities in the right paraspinous region, presumably representing areas of scarring area stable peripheral opacities within the right costophrenic sulcus also likely represent areas of scarring. The heart is borderline enlarged. There is stable thickening of the inferior major fissure on the left. There are degenerative changes of the lumbar spine. Areas of sclerosis are seen within the lumbar spine presumably representing degenerative changes, stable. Unusual appearance to the posterior elements of L5 on the right, could be postsurgical or developmental. No significant interim change Impression: No acute abnormality Fatty liver also previously reported Postsurgical changes, as described, including prior hysterectomy, prior cholecystectomy Bilateral basilar pulmonary parenchymal opacities, stable and therefore likely represent areas of scarring Borderline cardiomegaly Other findings as noted,, including unusual appearing L5 posterior elements, degenerative spondylosis, excessive splenule, circumaortic left renal vein This agrees with the preliminary interpretation provided overnight by [facility]. The CT scanner at [facility] is accredited by the [employer] and the scans are performed using protocols designed to limit radiation exposure to as low as reasonably achievable to attain images of sufficient resolution adequate for diagnostic evaluation.
[2017-07-17 08:50] LABS: ALANINE AMINOTRANSFERASE 36 U/L (12-78); ALBUMIN/GLOBULIN RATIO 0.8 (1.0-2.7); ANION GAP 6 mmol/L (5-15); ASPARTATE AMINO TRANSFERASE 24 U/L (15-37); CALCIUM 8.7 MG/DL (8.5-10.1); CARBON DIOXIDE 29 MMOL/L (21-32); CHLORIDE 102 MMOL/L (98-107); CREATININE 0.9 MG/DL (0.55-1.30); GLOMERULAR FILTRATION RATE > 60 mL/min (>60); POTASSIUM 3.8 MMOL/L (3.5-5.1); SODIUM 137 MMOL/L (136-145); THYROID STIMULATING HORMONE 1.361 uiU/mL (0.360-3.740); TOTAL PROTEIN 7.5 G/DL (6.4-8.2)
[2017-07-17 08:59] VITALS: BP 134/72
[2017-07-17] MEDS: Heparin 5000 units/ml inj SUBQ SCH ×2 (09:16→20:53)
--- NOTE | 2017-07-17 11:43 | Cardiology Progress Note ---
Assessment/Plan Assessment/Plan [id number] chest pain atypical abd pain nursea vomittign dm htn tobacco use hx min abn trop will need echo will need stress test Objective Last 24 Hour Vital Signs Date Time Temp Pulse Resp B/P (MAP) Pulse Ox O2 Delivery O2 Flow Rate FiO2 07/17/17 08:59 97.0 104 18 134/72 97 Room Air 07/17/17 04:16 75 07/17/17 04:00 97.9 75 20 138/72 100 Room Air 07/17/17 00:51 62 07/17/17 00:00 97.5 65 20 134/82 100 Room Air 07/16/17 22:35 42 22 133/86 Nasal Cannula 2.0 07/16/17 22:35 96.8 110 22 133/86 97 Nasal Cannula 4.0 07/16/17 22:35 100 20 127/85 100 Room Air 07/16/17 22:21 98.5 67 18 150/78 99 Room Air 07/16/17 22:04 98.5 67 18 150/78 99 Room Air 07/16/17 20:45 98.5 07/16/17 19:35 97.9 67 18 145/97 99 Room Air 07/16/17 17:25 98.5 74 18 145/85 99 Room Air 07/16/17 14:38 98.5 74 18 132/78 99 Room Air 07/16/17 13:56 98.5 18 110/72 99 Room Air 07/16/17 13:30 98.3 74 20 131/89 100 Room Air 07/16/17 13:03 98.1 80 16 130/80 98 Room Air Intake and Output 07/17/17 07/18/17 19:00 07:00 # Bowel Movements 1 Laboratory Tests Test 07/16/17 13:35 07/16/17 16:05 07/17/17 06:30 White Blood Count 8.2 K/UL (4.8-10.8) 6.8 K/UL (4.8-10.8) Red Blood Count 5.09 M/UL (4.20-5.40) 4.58 M/UL (4.20-5.40) Hemoglobin 12.7 G/DL (12.0-16.0) 12.5 G/DL (12.0-16.0) Hematocrit 42.0 % (37.0-47.0) 37.4 % (37.0-47.0) Mean Corpuscular Volume 82 FL (80-99) 82 FL (80-99) Mean Corpuscular Hemoglobin 25.0 PG (27.0-31.0) L 27.3 PG (27.0-31.0) Mean Corpuscular Hemoglobin Concent 30.3 G/DL (32.0-36.0) L 33.4 G/DL (32.0-36.0) Red Cell Distribution Width 14.2 % (11.6-14.8) 13.7 % (11.6-14.8) Platelet Count 284 K/UL (150-450) 266 K/UL (150-450) Mean Platelet Volume 8.8 FL (6.5-10.1) 9.2 FL (6.5-10.1) Neutrophils (%) (Auto) 51.0 % (45.0-75.0) 48.0 % (45.0-75.0) Lymphocytes (%) (Auto) 37.2 % (20.0-45.0) 38.6 % (20.0-45.0) Monocytes (%) (Auto) 7.0 % (1.0-10.0) 7.6 % (1.0-10.0) Eosinophils (%) (Auto) 3.6 % (0.0-3.0) H 4.8 % (0.0-3.0) H Basophils (%) (Auto) 1.2 % (0.0-2.0) 1.0 % (0.0-2.0) Urine Color Pale yellow Urine Appearance Clear Urine pH 5 (4.5-8.0) Urine Specific [place] 1.025 (1.005-1.035) Urine Protein Negative (NEGATIVE) Urine Glucose (UA) 3+ (NEGATIVE) H Urine Ketones Negative (NEGATIVE) Urine Occult Blood Negative (NEGATIVE) Urine Nitrite Negative (NEGATIVE) Urine Bilirubin Negative (NEGATIVE) Urine Urobilinogen Normal MG/DL (0.0-1.0) Urine Leukocyte Esterase Negative (NEGATIVE) Sodium Level 138 MMOL/L (136-145) 137 MMOL/L (136-145) Potassium Level 4.1 MMOL/L (3.5-5.1) 3.8 MMOL/L (3.5-5.1) Chloride Level 102 MMOL/L (98-107) 102 MMOL/L (98-107) Carbon Dioxide Level 27 MMOL/L (21-32) 29 MMOL/L (21-32) Anion Gap 9 mmol/L (5-15) 6 mmol/L (5-15) Blood Urea Nitrogen 13 mg/dL (7-18) 14 mg/dL (7-18) Creatinine 1.0 MG/DL (0.55-1.30) 0.9 MG/DL (0.55-1.30) Estimat Glomerular Filtration Rate > 60 mL/min (>60) > 60 mL/min (>60) Glucose Level 214 MG/DL (74-106) H 209 MG/DL (74-106) H Lactic Acid Level 1.70 mmol/L (0.66-2.22) Calcium Level 9.4 MG/DL (8.5-10.1) 8.7 MG/DL (8.5-10.1) Total Bilirubin 0.4 MG/DL (0.2-1.0) 0.5 MG/DL (0.2-1.0) Aspartate Amino Transf (AST/SGOT) 19 U/L (15-37) 24 U/L (15-37) Alanine Aminotransferase (ALT/SGPT) 36 U/L (12-78) 36 U/L (12-78) Alkaline Phosphatase 75 U/L (46-116) 72 U/L (46-116) Troponin I 0.099 ng/mL (0.000-0.056) 0.103 ng/mL (0.000-0.056) Total Protein 8.2 G/DL (6.4-8.2) 7.5 G/DL (6.4-8.2) Albumin 3.8 G/DL (3.4-5.0) 3.4 G/DL (3.4-5.0) Globulin 4.4 g/dL 4.1 g/dL Albumin/Globulin Ratio 0.9 (1.0-2.7) L 0.8 (1.0-2.7) L Lipase 119 U/L (73-393) Prothrombin Time 9.9 SEC (9.30-11.50) Prothromb Time International Ratio 0.9 (0.9-1.1) Activated Partial Thromboplast Time 29 SEC (23-33) Pro-B-Type Natriuretic Peptide 15 pg/mL (0-125) Thyroid Stimulating Hormone (TSH) 1.361 uiU/mL (0.360-3.740) CHESTER HENSON Jul 17, 2017 11:43
[2017-07-17] MEDS ORDERED: Lexiscan 0.4mg/5ml syringe IV PRN (11:45)
--- NOTE | 2017-07-17 11:49 | Diagnostic Imaging Report ---
Indication: PAIN Technique: 4 views of the lumbar spine Comparison: None Findings: Contrast from prior abdomen pelvis CT is seen within the transverse colon, could obscure pathology. Vertebral body heights are preserved. There is minimal degenerative disc narrowing and vacuum formation and L4-5. There is minimal degenerative disc narrowing at L1-2 and L2-3. The remaining disc spaces are preserved. Sacroiliac joint spaces are preserved. The facet joint spaces are preserved. No acute fractures. No dislocations. Impression: No acute process Degenerative changes, as described
[2017-07-17 12:00] VITALS: BP 130/85
--- NOTE | 2017-07-17 12:34 | Pulmonology Progress Note ---
Assessment/Plan Problems: (1) Non-ST elevation (NSTEMI) myocardial infarction (2) Diverticulosis (3) HTN (hypertension) (4) Diabetes (5) Abdominal pain Assessment/Plan f/u troponin d/w dr keating, pt will need stress testing GI evaluation pending Subjective ROS Limited/Unobtainable: No Constitutional: Reports: no symptoms HEENT: Repors: no symptoms Respiratory: Reports: no symptoms Allergies: Coded Allergies: No Known Allergies (Unverified , 08/25/13) Objective Last 24 Hour Vital Signs Date Time Temp Pulse Resp B/P (MAP) Pulse Ox O2 Delivery O2 Flow Rate FiO2 07/17/17 12:00 97.2 72 18 130/85 96 Room Air 07/17/17 08:59 97.0 104 18 134/72 97 Room Air 07/17/17 04:16 75 07/17/17 04:00 97.9 75 20 138/72 100 Room Air 07/17/17 00:51 62 07/17/17 00:00 97.5 65 20 134/82 100 Room Air 07/16/17 22:35 42 22 133/86 Nasal Cannula 2.0 07/16/17 22:35 96.8 110 22 133/86 97 Nasal Cannula 4.0 07/16/17 22:35 100 20 127/85 100 Room Air 07/16/17 22:21 98.5 67 18 150/78 99 Room Air 07/16/17 22:04 98.5 67 18 150/78 99 Room Air 07/16/17 20:45 98.5 07/16/17 19:35 97.9 67 18 145/97 99 Room Air 07/16/17 17:25 98.5 74 18 145/85 99 Room Air 07/16/17 14:38 98.5 74 18 132/78 99 Room Air 07/16/17 13:56 98.5 18 110/72 99 Room Air 07/16/17 13:30 98.3 74 20 131/89 100 Room Air 07/16/17 13:03 98.1 80 16 130/80 98 Room Air Intake and Output 07/17/17 07/18/17 19:00 07:00 # Bowel Movements 1 General Appearance: WD/WN HEENT: normocephalic, atraumatic Respiratory/Chest: chest wall non-tender, lungs clear Breasts: no masses Cardiovascular: normal peripheral pulses, normal rate Abdomen: normal bowel sounds, soft, non tender Extremities: no cyanosis, no clubbing Neurologic/Psychiatric: education department registrar II-XII grossly normal Lymphatic: no neck adenopathy Laboratory Tests 07/16/17 13:35: White Blood Count 8.2, Red Blood Count 5.09, Hemoglobin 12.7, Hematocrit 42.0, Mean Corpuscular Volume 82, Mean Corpuscular Hemoglobin 25.0L, Mean Corpuscular Hemoglobin Concent 30.3L, Red Cell Distribution Width 14.2, Platelet Count 284, Mean Platelet Volume 8.8, Neutrophils (%) (Auto) 51.0, Lymphocytes (%) (Auto) 37.2, Monocytes (%) (Auto) 7.0, Eosinophils (%) (Auto) 3.6H, Basophils (%) (Auto ) 1.2, Urine Color Pale yellow, Urine Appearance Clear, Urine pH 5, Urine Specific [place] 1.025, Urine Protein Negative, Urine Glucose (UA) 3+H, Urine Ketones Negative, Urine Occult Blood Negative, Urine Nitrite Negative, Urine Bilirubin Negative, Urine Urobilinogen Normal, Urine Leukocyte Esterase Negative , Sodium Level 138, Potassium Level 4.1, Chloride Level 102, Carbon Dioxide Level 27, Anion Gap 9, Blood Urea Nitrogen 13, Creatinine 1.0, Estimat Glomerular Filtration Rate > 60, Glucose Level 214H, Lactic Acid Level 1.70, Calcium Level 9.4, Total Bilirubin 0.4, Aspartate Amino Transf (AST/SGOT) 19, Alanine Aminotransferase (ALT/SGPT) 36, Alkaline Phosphatase 75, Troponin I 0.099H, Total Protein 8.2, Albumin 3.8, Globulin 4.4, Albumin/Globulin Ratio 0.9L, Lipase 119 07/16/17 16:05: Troponin I 0.103H, Prothrombin Time 9.9, Prothromb Time International Ratio 0.9 , Activated Partial Thromboplast Time 29, Pro-B-Type Natriuretic Peptide 15 07/17/17 06:30: White Blood Count 6.8, Red Blood Count 4.58, Hemoglobin 12.5, Hematocrit 37.4, Mean Corpuscular Volume 82, Mean Corpuscular Hemoglobin 27.3, Mean Corpuscular Hemoglobin Concent 33.4, Red Cell Distribution Width 13.7, Platelet Count 266, Mean Platelet Volume 9.2, Neutrophils (%) (Auto) 48.0, Lymphocytes (%) (Auto) 38.6, Monocytes (%) (Auto) 7.6, Eosinophils (%) (Auto) 4.8H, Basophils (%) (Auto ) 1.0, Sodium Level 137, Potassium Level 3.8, Chloride Level 102, Carbon Dioxide Level 29, Anion Gap 6, Blood Urea Nitrogen 14, Creatinine 0.9, Estimat Glomerular Filtration Rate > 60, Glucose Level 209H, Calcium Level 8.7, Total Bilirubin 0.5, Aspartate Amino Transf (AST/SGOT) 24, Alanine Aminotransferase ( ALT/SGPT) 36, Alkaline Phosphatase 72, Total Protein 7.5, Albumin 3.4, Globulin 4.1, Albumin/Globulin Ratio 0.8L, Thyroid Stimulating Hormone (TSH) 1.361 Current Medications Medications (Trade) Dose Ordered Sig/Jaya Route PRN Reason Start Time Stop Time Status Last Admin Dose Admin Acetaminophen (Tylenol) 650 mg Q4H PRN ORAL fever 07/16/17 22:00 08/15/17 21:59 Acetaminophen/ Hydrocodone Bitart ([place] 7.5/325) 1 ea Q4H PRN ORAL Moderate breakthough pain 07/17/17 08:45 07/24/17 08:44 Al Hydroxide/Mg Hydroxide (Mylanta II) 30 ml Q6H PRN ORAL dyspepsia 07/16/17 22:00 08/15/17 21:59 Atorvastatin Calcium (Lipitor) 40 mg BEDTIME ORAL 07/17/17 21:00 08/16/17 20:59 Dextrose (Dextrose 50%) STAT PRN IV Hypoglycemia 07/16/17 22:00 08/15/17 21:59 Gabapentin (Neurontin) 300 mg THREE TIMES A DAY ORAL 07/17/17 09:00 08/16/17 08:59 07/17/17 09:15 Heparin Sodium (Porcine) (Heparin 5000 units/ml) 5,000 units EVERY 12 HOURS SUBQ 07/17/17 09:00 08/16/17 08:59 07/17/17 09:16 Insulin Aspart (NovoLOG) BEFORE MEALS AND HS SUBQ 07/17/17 06:30 08/16/17 06:29 07/17/17 12:00 Lorazepam (Ativan 2mg/ml 1ml) 0.5 mg Q4H PRN IV For Anxiety 07/16/17 22:00 07/23/17 21:59 Losartan Potassium (Cozaar) 25 mg DAILY ORAL 07/17/17 12:00 08/16/17 11:59 Methocarbamol (Robaxin) 500 mg Q8H PRN ORAL muscle spasm 07/17/17 08:45 08/16/17 08:44 Morphine Sulfate (Morphine Sulfate) 4 mg Q4H PRN IVP For Pain 7-10 07/16/17 22:00 07/23/17 21:59 07/17/17 10:48 Ondansetron HCl (Zofran) 4 mg Q6H PRN IVP Nausea & Vomiting 07/16/17 22:00 08/15/17 21:59 Polyethylene Glycol (Miralax) 17 gm HSPRN PRN ORAL Constipation 07/16/17 22:00 08/15/17 21:59 Regadenoson (Lexiscan) 0.4 mg ONCE PRN IV CARDIAC STRESS TEST 07/17/17 11:45 07/19/17 23:59 Zolpidem Tartrate (Ambien) 5 mg HSPRN PRN ORAL Insomnia 07/16/17 22:00 07/23/17 21:59 TC BOND Jul 17, 2017 12:34
--- NOTE | 2017-07-17 12:34 | History and Physical ---
History of Present Illness General Date patient seen: Jul 16, 2017 Reason for Hospitalization: Abdominal Pain Present Illness HPI 62 year old female with recurrent central/suprapubic abd pain for 3-4 days extending to left chest area. She had a positive troponin in ER and admitted to telemetry for further work up. Allergies: Coded Allergies: No Known Allergies (Unverified , 08/25/13) Medication History Scheduled Ciprofloxacin* (Cipro*), 500 MG PO BID Losartan Potassium* (Losartan Potassium*), Unknown Dose ORAL DAILY, (Reported) Metformin Hcl* (Metformin Hcl*), 1,000 MG ORAL BID, (Reported) Ranitidine Hcl* (Zantac*), Unknown Dose ORAL DAILY, (Reported) Scheduled PRN Acetaminophen With Codeine (T#3) (Tylenol #3 Tab*), 1 TAB ORAL Q4H PRN Tramadol Hcl* (Ultram*), 50 MG ORAL Q6H PRN for For Pain Patient History Healthcare decision maker Resuscitation status Full Code Advanced Directive on File No Past Medical/Surgical History Past Medical/Surgical History: (1) HTN (hypertension) (2) Diabetes (3) Diverticulosis (4) Fatty liver Review of Systems All Other Systems: negative except mentioned in HPI Physical Exam General Appearance: WD/WN Lines, tubes and drains: peripheral, central line HEENT: normocephalic, atraumatic Neck: non-tender, normal alignment Respiratory/Chest: chest wall non-tender, lungs clear Breasts: no masses Cardiovascular/Chest: normal peripheral pulses Abdomen: normal bowel sounds, non tender Genitourinary/Rectal: normal genital exam Extremities: normal range of motion Last 24 Hour Vital Signs Date Time Temp Pulse Resp B/P (MAP) Pulse Ox O2 Delivery O2 Flow Rate FiO2 07/17/17 12:00 97.2 72 18 130/85 96 Room Air 07/17/17 08:59 97.0 104 18 134/72 97 Room Air 07/17/17 04:16 75 07/17/17 04:00 97.9 75 20 138/72 100 Room Air 07/17/17 00:51 62 07/17/17 00:00 97.5 65 20 134/82 100 Room Air 07/16/17 22:35 42 22 133/86 Nasal Cannula 2.0 07/16/17 22:35 96.8 110 22 133/86 97 Nasal Cannula 4.0 07/16/17 22:35 100 20 127/85 100 Room Air 07/16/17 22:21 98.5 67 18 150/78 99 Room Air 07/16/17 22:04 98.5 67 18 150/78 99 Room Air 07/16/17 20:45 98.5 07/16/17 19:35 97.9 67 18 145/97 99 Room Air 07/16/17 17:25 98.5 74 18 145/85 99 Room Air 07/16/17 14:38 98.5 74 18 132/78 99 Room Air 07/16/17 13:56 98.5 18 110/72 99 Room Air 07/16/17 13:30 98.3 74 20 131/89 100 Room Air 07/16/17 13:03 98.1 80 16 130/80 98 Room Air Intake and Output 07/17/17 07/18/17 19:00 07:00 # Bowel Movements 1 Laboratory Tests Test 07/16/17 13:35 07/16/17 16:05 07/17/17 06:30 White Blood Count 8.2 K/UL (4.8-10.8) 6.8 K/UL (4.8-10.8) Red Blood Count 5.09 M/UL (4.20-5.40) 4.58 M/UL (4.20-5.40) Hemoglobin 12.7 G/DL (12.0-16.0) 12.5 G/DL (12.0-16.0) Hematocrit 42.0 % (37.0-47.0) 37.4 % (37.0-47.0) Mean Corpuscular Volume 82 FL (80-99) 82 FL (80-99) Mean Corpuscular Hemoglobin 25.0 PG (27.0-31.0) L 27.3 PG (27.0-31.0) Mean Corpuscular Hemoglobin Concent 30.3 G/DL (32.0-36.0) L 33.4 G/DL (32.0-36.0) Red Cell Distribution Width 14.2 % (11.6-14.8) 13.7 % (11.6-14.8) Platelet Count 284 K/UL (150-450) 266 K/UL (150-450) Mean Platelet Volume 8.8 FL (6.5-10.1) 9.2 FL (6.5-10.1) Neutrophils (%) (Auto) 51.0 % (45.0-75.0) 48.0 % (45.0-75.0) Lymphocytes (%) (Auto) 37.2 % (20.0-45.0) 38.6 % (20.0-45.0) Monocytes (%) (Auto) 7.0 % (1.0-10.0) 7.6 % (1.0-10.0) Eosinophils (%) (Auto) 3.6 % (0.0-3.0) H 4.8 % (0.0-3.0) H Basophils (%) (Auto) 1.2 % (0.0-2.0) 1.0 % (0.0-2.0) Urine Color Pale yellow Urine Appearance Clear Urine pH 5 (4.5-8.0) Urine Specific [place] 1.025 (1.005-1.035) Urine Protein Negative (NEGATIVE) Urine Glucose (UA) 3+ (NEGATIVE) H Urine Ketones Negative (NEGATIVE) Urine Occult Blood Negative (NEGATIVE) Urine Nitrite Negative (NEGATIVE) Urine Bilirubin Negative (NEGATIVE) Urine Urobilinogen Normal MG/DL (0.0-1.0) Urine Leukocyte Esterase Negative (NEGATIVE) Sodium Level 138 MMOL/L (136-145) 137 MMOL/L (136-145) Potassium Level 4.1 MMOL/L (3.5-5.1) 3.8 MMOL/L (3.5-5.1) Chloride Level 102 MMOL/L (98-107) 102 MMOL/L (98-107) Carbon Dioxide Level 27 MMOL/L (21-32) 29 MMOL/L (21-32) Anion Gap 9 mmol/L (5-15) 6 mmol/L (5-15) Blood Urea Nitrogen 13 mg/dL (7-18) 14 mg/dL (7-18) Creatinine 1.0 MG/DL (0.55-1.30) 0.9 MG/DL (0.55-1.30) Estimat Glomerular Filtration Rate > 60 mL/min (>60) > 60 mL/min (>60) Glucose Level 214 MG/DL (74-106) H 209 MG/DL (74-106) H Lactic Acid Level 1.70 mmol/L (0.66-2.22) Calcium Level 9.4 MG/DL (8.5-10.1) 8.7 MG/DL (8.5-10.1) Total Bilirubin 0.4 MG/DL (0.2-1.0) 0.5 MG/DL (0.2-1.0) Aspartate Amino Transf (AST/SGOT) 19 U/L (15-37) 24 U/L (15-37) Alanine Aminotransferase (ALT/SGPT) 36 U/L (12-78) 36 U/L (12-78) Alkaline Phosphatase 75 U/L (46-116) 72 U/L (46-116) Troponin I 0.099 ng/mL (0.000-0.056) 0.103 ng/mL (0.000-0.056) Total Protein 8.2 G/DL (6.4-8.2) 7.5 G/DL (6.4-8.2) Albumin 3.8 G/DL (3.4-5.0) 3.4 G/DL (3.4-5.0) Globulin 4.4 g/dL 4.1 g/dL Albumin/Globulin Ratio 0.9 (1.0-2.7) L 0.8 (1.0-2.7) L Lipase 119 U/L (73-393) Prothrombin Time 9.9 SEC (9.30-11.50) Prothromb Time International Ratio 0.9 (0.9-1.1) Activated Partial Thromboplast Time 29 SEC (23-33) Pro-B-Type Natriuretic Peptide 15 pg/mL (0-125) Thyroid Stimulating Hormone (TSH) 1.361 uiU/mL (0.360-3.740) Height (Feet): 5 Height (Inches): 5.00 Weight (Pounds): 195 Medications Current Medications Medications (Trade) Dose Ordered Sig/Jaya Route PRN Reason Start Time Stop Time Status Last Admin Dose Admin Acetaminophen (Tylenol) 650 mg Q4H PRN ORAL fever 07/16/17 22:00 08/15/17 21:59 Acetaminophen/ Hydrocodone Bitart ([place] 7.5/325) 1 ea Q4H PRN ORAL Moderate breakthough pain 07/17/17 08:45 07/24/17 08:44 Al Hydroxide/Mg Hydroxide (Mylanta II) 30 ml Q6H PRN ORAL dyspepsia 07/16/17 22:00 08/15/17 21:59 Atorvastatin Calcium (Lipitor) 40 mg BEDTIME ORAL 07/17/17 21:00 08/16/17 20:59 Dextrose (Dextrose 50%) STAT PRN IV Hypoglycemia 07/16/17 22:00 08/15/17 21:59 Gabapentin (Neurontin) 300 mg THREE TIMES A DAY ORAL 07/17/17 09:00 08/16/17 08:59 07/17/17 09:15 Heparin Sodium (Porcine) (Heparin 5000 units/ml) 5,000 units EVERY 12 HOURS SUBQ 07/17/17 09:00 08/16/17 08:59 07/17/17 09:16 Insulin Aspart (NovoLOG) BEFORE MEALS AND HS SUBQ 07/17/17 06:30 08/16/17 06:29 07/17/17 12:00 Lorazepam (Ativan 2mg/ml 1ml) 0.5 mg Q4H PRN IV For Anxiety 07/16/17 22:00 07/23/17 21:59 Losartan Potassium (Cozaar) 25 mg DAILY ORAL 07/17/17 12:00 08/16/17 11:59 Methocarbamol (Robaxin) 500 mg Q8H PRN ORAL muscle spasm 07/17/17 08:45 08/16/17 08:44 Morphine Sulfate (Morphine Sulfate) 4 mg Q4H PRN IVP For Pain 7-10 07/16/17 22:00 07/23/17 21:59 07/17/17 10:48 Ondansetron HCl (Zofran) 4 mg Q6H PRN IVP Nausea & Vomiting 07/16/17 22:00 08/15/17 21:59 Polyethylene Glycol (Miralax) 17 gm HSPRN PRN ORAL Constipation 07/16/17 22:00 08/15/17 21:59 Regadenoson (Lexiscan) 0.4 mg ONCE PRN IV CARDIAC STRESS TEST 07/17/17 11:45 07/19/17 23:59 Zolpidem Tartrate (Ambien) 5 mg HSPRN PRN ORAL Insomnia 07/16/17 22:00 07/23/17 21:59 Assessment/Plan Problem List: (1) Non-ST elevation (NSTEMI) myocardial infarction ICD Codes: I21.4 - Non-ST elevation (NSTEMI) myocardial infarction SNOMED: 676345365 (2) Diverticulosis ICD Codes: K57.90 - Diverticulosis SNOMED: 395331863 (3) HTN (hypertension) ICD Codes: I10 - HTN (hypertension) SNOMED: 40454223 (4) Diabetes ICD Codes: E11.9 - Diabetes SNOMED: 72539884 (5) Abdominal pain ICD Codes: R10.9 - Unspecified abdominal pain SNOMED: 03542727 Assessment/Plan serial ekg, troponin, echo cardiology to see GI evaluation symptomatic treatment. TC BOND Jul 17, 2017 12:34
[2017-07-17] MEDS: Losartan 25mg tab ORAL SCH (12:55)
--- NOTE | 2017-07-17 13:35 | Cardiology Report ---
APPROVED REPORT EXAM: Two-dimensional and M-mode echocardiogram with Doppler and color Doppler. INDICATION Chest Pain M-Mode DIMENSIONS IVSd1.9 (0.7-1.1cm)Left Atrium (MM)3.6 (1.6-4.0cm) LVDd3.5 (3.5-5.6cm)Aortic Root2.9 (2.0-3.7cm) PWd1.3 (0.7-1.1cm)Aortic Cusp Exc.1.6 (1.5-2.0cm) LVDs1.5 (2.5-4.0cm) PWs2.6 cm Technically difficult study due to poor parasternal acoustical windows. Study quality precludes accurate assessment of regional wall motion. Normal left ventricular chamber size, systolic function and wall motion. Left ventricular ejection fraction estimated to be 60-65 %. Mild left ventricular hypertrophy. No evidence of pericardial effusion. All other cardiac chamber sizes are within normal limits. Focal aortic valve sclerosis with adequate cusp excursion. Thickened mitral valve leaflets with normal excursion. Mild mitral annulus and aortic root calcification. Pulmonic valve not well visualized. Normal tricuspid valve structure. IVC at normal size with physiological collapse. A color flow and spectral Doppler study was performed and revealed: Mild aortic insufficiency, Trace mitral regurgitation. Mitral diastolic velocities suggest reduced left ventricular relaxation c/w diastolic dysfunction (Grade I). Trace tricuspid regurgitation. Tricuspid systolic velocities suggests peak right ventricular systolic pressure of 22 mmHg. No pulmonic regurgitation present.
[2017-07-17 16:13] VITALS: BP 137/73
--- NOTE | 2017-07-17 16:15 | Consultation ---
DATE OF CONSULTATION: 07/17/2017 PAIN MANAGEMENT CONSULTATION REFERRING PHYSICIAN: Elsa Cole M.D. CONSULTING PHYSICIAN: Coral Elena M.D. PHYSICIAN PAPER [place] MACHINE OPERATOR: Nancy Parks REASON FOR CONSULTATION: Abdominal pain, low back pain, and right knee pain. HISTORY OF PRESENT ILLNESS: This is a 62-year-old female who is being seen on the telemetry floor of [facility] for initial comprehensive pain management consultation. The patient reports that she has been having abdominal pain, was found to have gastritis in the past, and now having severe intractable abdominal pain, admitted under the care of Dr. Cole. The patient also has chronic low back pain, which she states is severe at times, radiating down bilateral lower extremities, increased with movement, and nothing has been helping to relieve the pain. Also having right knee pain due to knee osteoarthritis and history of total knee replacement with chronic pain at that site as well. At this time, the patient was started on morphine 4 mg IV every four hours as needed for severe pain which has helped the patient tolerate the pain. I discussed the patient about adding a tablet for breakthrough pain. In the past, the patient reports taking gabapentin as well. At this time, the patient is in bed, no signs of distress or pain. We were consulted so that the patient would have adequate pain control while here in the hospital. PAST MEDICAL HISTORY: Hypertension, diabetes mellitus, and lumbago. PAST SURGICAL HISTORY: Total knee replacement, hysterectomy, and cholecystectomy. MEDICATIONS: Cipro, losartan, metformin, Zantac, Tylenol No. 3, Ultram and [place]. ALLERGIES: No known drug allergies. SOCIAL HISTORY: History of smoking tobacco. Denies alcohol abuse and IV drug abuse. REVIEW OF SYSTEMS: Denies rash, fever, chills, dizziness drowsiness or change in weight. No shortness of breath or chest pain. No bowel or bladder incontinence. She is complaining of abdominal pain with low back pain and right knee pain. PHYSICAL EXAMINATION: GENERAL: Alert, awake, oriented x3. VITAL SIGNS: Blood pressure 138/72, heart rate 75, oxygen saturation 98%, respiratory rate 20, temperature 98.9 degrees Fahrenheit. Height is 5 feet 5 inches. HEENT: PERRLA. NECK: Range of motion is full in all directions. No tenderness to paracervical muscles. No adenopathy LUNGS: Decreased breath sounds bilaterally. HEART: Regular. ABDOMEN: Obese with tenderness to palpation. BACK: Range of motion is decreased in flexion and extension with tenderness to paraspinal muscles. No tenderness to trapezius or rhomboid muscles. EXTREMITIES: Upper extremity range of motion is full in all directions. Motor is intact. No cyanosis. No clubbing. No edema. Sensory is intact. Reflexes are not obtainable. No adenopathy. Lower extremity motion is decreased due to the patient's clinical condition with motor being 4/5 in all muscles bilaterally with right knee surgical scar noted. Tenderness to palpation. No cyanosis. No clubbing. Sensory is reduced. Reflexes are not obtainable. No adenopathy. ASSESSMENT AND PLAN: This is a 62-year-old female with intractable abdominal pain, gastritis, lumbar degenerative disease, lumbar spondylosis, lumbar radiculopathy, right knee pain, and history of right total knee replacement. At this time, we recommend the patient to be seen by oiler bander. The patient will be continued on morphine 4 mg IV every four hours as needed for severe pain. We will start the patient on [place] 7.5/325 mg one tablet every four hours as needed for moderate breakthrough pain, Neurontin 300 mg tablet three times a day, and Robaxin 500 mg tablet every eight hours as needed for muscle spasm. The patient will also go for x-ray of the lumbar spine to further assess the lower back pain. The patient was discussed with Dr. Elena and Dr. Elena concurred. We will follow the patient. Thank you very much for the courtesy of this consultation. Coral Elena M.D. IVY Parks DR: JEAN CLAUDE JOB#: [id number] CC: ELENO
--- NOTE | 2017-07-17 17:41 | GI Initial Consult Note ---
History of Present Illness General Date patient seen: Jul 17, 2017 Time patient seen: 17:33 Reason for Hospitalization: Abdominal Pain Referring physician: TC JENNINGS Reason for Consultation: ABDOMINAL PAIN Present Illness HPI 62YOF with recurrent central/suprapubic abd pain for 3-4 days No associated nausea/vomiting, fever/chills, diarrhea, urinary complaints Was here in April - had CT and Sono which showed fatty liver. No other acute findings to explain pain No sick contacts or foreign travel GI consulted for abdominal pain. HPI as noted above. Pt seen on floor, awake A&Ox4 NAD with no active s/sx of N/V/D, ambulatory and OOB. Patient c/o of abdominal pain, notes bloating and fullness after PO intake. In addition, she states there are times food may get "stuck" in her esophagus. She had earlier episodes of N/V but denies any at the moment. Positive flatus. She's has a history of EGD/colonoscopy recently 04/25/17 in which they found gastritis and hemorrhoids. Labs and CT are unremarkable at this time. Pathology from previous endoscopy shows patient is positive with H. Pylori. Home Meds Active Scripts Acetaminophen With Codeine (T#3) (TYLENOL #3 TAB*) Y Tab, 1 TAB ORAL Q4H Y for 10 Days, TAB Prov:TC BOND 04/25/17 Ciprofloxacin* (CIPRO*) 500 Mg Tablet, 500 MG PO BID, #6 TAB Prov:Mando Kong 11/16/15 Tramadol Hcl* (ULTRAM*) 50 Mg Tablet, 50 MG ORAL Q6H Y for For Pain, #14 TAB 0 Refills Prov:Mando Kong 11/16/15 Reported Medications Losartan Potassium* (LOSARTAN POTASSIUM*) 25 Mg Tablet, ORAL DAILY, TAB 12/16/14 Ranitidine Hcl* (ZANTAC*) 150 Mg Tablet, ORAL DAILY, TAB 12/16/14 Metformin Hcl* (METFORMIN HCL*) 1,000 Mg Tablet, 1000 MG ORAL BID, TAB 12/16/14 Med list reviewed/reconciled: Yes Allergies: Coded Allergies: No Known Allergies (Unverified , 08/25/13) Patient History History Provided By: Patient, Medical Record PM Narrative Past Medical History: other - fatty liver Past Surgical History: none Pertinent Family History: none Social History: Denies: smoking, alcohol use, drug use Now: No Immunizations: UTD Nursing Documentation-PMH Hx Cardiac Problems: No Hx Hypertension: Yes Hx Pacemaker: No Hx Asthma: No Hx COPD: No Hx Diabetes: Yes Hx Cancer: No Hx Gastrointestinal Problems: Yes Hx Dialysis: No History Of Psychiatric Problem: No Hx Neurological Problems: No Hx Cerebrovascular Accident: No Hx Seizures: No Social History: Reports: alcohol use Review of Systems All Other Systems: negative except mentioned in HPI Physical Exam Vital Signs Date Time Temp Pulse Resp B/P (MAP) Pulse Ox O2 Delivery O2 Flow Rate FiO2 07/16/17 13:03 98.1 80 16 130/80 98 Room Air 07/16/17 22:35 4.0 Sp02 EP Interpretation: reviewed, normal Labs Laboratory Tests Test 07/17/17 06:30 White Blood Count 6.8 K/UL (4.8-10.8) Red Blood Count 4.58 M/UL (4.20-5.40) Hemoglobin 12.5 G/DL (12.0-16.0) Hematocrit 37.4 % (37.0-47.0) Mean Corpuscular Volume 82 FL (80-99) Mean Corpuscular Hemoglobin 27.3 PG (27.0-31.0) Mean Corpuscular Hemoglobin Concent 33.4 G/DL (32.0-36.0) Red Cell Distribution Width 13.7 % (11.6-14.8) Platelet Count 266 K/UL (150-450) Mean Platelet Volume 9.2 FL (6.5-10.1) Neutrophils (%) (Auto) 48.0 % (45.0-75.0) Lymphocytes (%) (Auto) 38.6 % (20.0-45.0) Monocytes (%) (Auto) 7.6 % (1.0-10.0) Eosinophils (%) (Auto) 4.8 % (0.0-3.0) H Basophils (%) (Auto) 1.0 % (0.0-2.0) Sodium Level 137 MMOL/L (136-145) Potassium Level 3.8 MMOL/L (3.5-5.1) Chloride Level 102 MMOL/L (98-107) Carbon Dioxide Level 29 MMOL/L (21-32) Anion Gap 6 mmol/L (5-15) Blood Urea Nitrogen 14 mg/dL (7-18) Creatinine 0.9 MG/DL (0.55-1.30) Estimat Glomerular Filtration Rate > 60 mL/min (>60) Glucose Level 209 MG/DL (74-106) H Calcium Level 8.7 MG/DL (8.5-10.1) Total Bilirubin 0.5 MG/DL (0.2-1.0) Aspartate Amino Transf (AST/SGOT) 24 U/L (15-37) Alanine Aminotransferase (ALT/SGPT) 36 U/L (12-78) Alkaline Phosphatase 72 U/L (46-116) Total Protein 7.5 G/DL (6.4-8.2) Albumin 3.4 G/DL (3.4-5.0) Globulin 4.1 g/dL Albumin/Globulin Ratio 0.8 (1.0-2.7) L Thyroid Stimulating Hormone (TSH) 1.361 uiU/mL (0.360-3.740) General Appearance: well appearing, no apparent distress, alert, obese Head: normocephalic EENT: PERRL/EOMI, normal ENT inspection Neck: supple Respiratory: normal breath sounds, no respiratory distress Cardiovascular: normal rate Gastrointestinal: normal inspection, non tender, soft, normal bowel sounds, non -distended Rectal: deferred Genitourinary: no CVA tenderness Musculoskeletal: normal inspection, back normal Neurologic: normal inspection, alert, oriented x3, responsive Psychiatric: normal inspection, judgement/insight normal, memory normal Skin: normal inspection, normal color, no rash, warm/dry, palpation normal, well hydrated Lymphatic: normal inspection, no adenopathy Current Medications Current Medications Medications (Trade) Dose Ordered Sig/Jaya Route PRN Reason Start Time Stop Time Status Last Admin Dose Admin Acetaminophen (Tylenol) 650 mg Q4H PRN ORAL fever 07/16/17 22:00 08/15/17 21:59 Acetaminophen/ Hydrocodone Bitart ([place] 7.5/325) 1 ea Q4H PRN ORAL Moderate breakthough pain 07/17/17 08:45 07/24/17 08:44 Al Hydroxide/Mg Hydroxide (Mylanta II) 30 ml Q6H PRN ORAL dyspepsia 07/16/17 22:00 08/15/17 21:59 Atorvastatin Calcium (Lipitor) 40 mg BEDTIME ORAL 07/17/17 21:00 08/16/17 20:59 Dextrose (Dextrose 50%) STAT PRN IV Hypoglycemia 07/16/17 22:00 08/15/17 21:59 Gabapentin (Neurontin) 300 mg THREE TIMES A DAY ORAL 07/17/17 09:00 08/16/17 08:59 07/17/17 17:19 Heparin Sodium (Porcine) (Heparin 5000 units/ml) 5,000 units EVERY 12 HOURS SUBQ 07/17/17 09:00 08/16/17 08:59 07/17/17 09:16 Insulin Aspart (NovoLOG) BEFORE MEALS AND HS SUBQ 07/17/17 06:30 08/16/17 06:29 07/17/17 17:11 Lorazepam (Ativan 2mg/ml 1ml) 0.5 mg Q4H PRN IV For Anxiety 07/16/17 22:00 07/23/17 21:59 Losartan Potassium (Cozaar) 25 mg DAILY ORAL 07/17/17 12:00 08/16/17 11:59 07/17/17 12:55 Methocarbamol (Robaxin) 500 mg Q8H PRN ORAL muscle spasm 07/17/17 08:45 08/16/17 08:44 Morphine Sulfate (Morphine Sulfate) 4 mg Q4H PRN IVP For Pain 7-10 07/16/17 22:00 07/23/17 21:59 07/17/17 10:48 Ondansetron HCl (Zofran) 4 mg Q6H PRN IVP Nausea & Vomiting 07/16/17 22:00 08/15/17 21:59 Polyethylene Glycol (Miralax) 17 gm HSPRN PRN ORAL Constipation 07/16/17 22:00 08/15/17 21:59 Regadenoson (Lexiscan) 0.4 mg ONCE PRN IV CARDIAC STRESS TEST 07/17/17 11:45 07/19/17 23:59 Zolpidem Tartrate (Ambien) 5 mg HSPRN PRN ORAL Insomnia 07/16/17 22:00 07/23/17 21:59 GI: Plan Problems: (1) Helicobacter pylori (H. pylori) infection (2) Bloating (3) Abdominal pain (4) Fatty liver (5) Diabetes (6) Anemia Plan s/p EGD/colon 04/25/17 >> gastritis, hemorrhoids H. Pylori positive Lipase negative CT AP >> fatty liver symptomatic treatment at this time zofran prn, will give low dose reglan for possible gastroparesis pain mgmt ppi DM mgmt fu labs patient needs outpatient treatment for H. Pylori (8 week treatment) and also Breathtest r/o SIBO - will put script in chart tomorrow. Discussed with Dr. Lambert. Thank you for this patient referral, we will follow. Belkys Calderon N.P. Jul 17, 2017 17:41
--- NOTE | 2017-07-17 18:30 | Consultation ---
DATE OF CONSULTATION: 07/17/2017 CARDIOLOGY CONSULTATION REFERRING PHYSICIAN: Elsa Cole M.D. REASON FOR REFERRAL: Abnormal cardiac enzymes. HISTORY OF PRESENT ILLNESS: This is an elderly middle-aged female, who presented to the hospital because of several days of nausea and vomiting intermittently, started when she was in the train from [place] to [place] and continued for several days post. She finally decided to come to the emergency room. There was no coffee-grounds or bloody vomiting. On questioning, she has some tightening in the chest that lasted only a few seconds. No relieving or exacerbating factors identified by the patient. She does have some shortness of breath on exertion and shortness of breath at nights. She does use three or four pillows for comfort. There is no palpitation. There is no dizziness or lightheadedness. PAST MEDICAL HISTORY: Diabetes, high blood pressure. No high cholesterol. No heart attack. No cancer. No stroke. No hepatitis or tuberculosis. No asthma or emphysema. She does have history of ulcers. No kidney problems, liver problems, thyroid problems, or anemia. She does have history of arthritis. No HIV, AIDS or blood clots, or any kind of heart problems before. ALLERGIES: She is not allergic to any medications. SOCIAL HISTORY: She used to smoke cigarettes until one year ago, most recently started using the E-cigarette. No alcohol. No drugs. REVIEW OF SYSTEMS: GASTROINTESTINAL: She has had abdominal pain, nausea and vomiting as mentioned. GENITOURINARY: Negative. PULMONARY: Negative. CONSTITUTIONAL: Negative. NEUROLOGIC: Negative. PHYSICAL EXAMINATION: GENERAL: Shows to be morbidly obese middle-aged female, in no respiratory distress. NECK: Supple. No jugular venous distention or abdominal jugular reflux. LUNGS: Appeared to be clear to auscultation and percussion. CARDIAC: S1 is normal. S2 is normal. Regular rate and rhythm. No heaves, thrills, gallops, or rubs are noted. ABDOMEN: Soft, obese. Positive bowel sounds. Nontender. EXTREMITIES: There is no clubbing, cyanosis, or edema. NEUROLOGICAL: She is awake, alert, responsive, in no apparent respiratory distress. LABORATORY AND DIAGNOSTIC DATA: Sodium 137, potassium 3.8, chloride 102, bicarbonate 29, BUN of 14, creatinine 0.9, and glucose of 209. Liver function tests are all normal. Her two sets of cardiac enzymes that were drawn was 0.99 and 0.103. Her TSH of 1.361. Her coagulations, INR 0.9 and PTT of 29. White count 6.8, hemoglobin 12.5, and platelet count 266. Urinalysis is 3+ glucose and her imaging results that she had a chest x-ray in the emergency room that showed no acute processes. She did have a CT scan of her chest, abdomen and pelvis that reportedly showed no acute abnormality, fatty liver, postsurgical changes from hysterectomy, cholecystectomy, and she has bibasilar parenchymal opacities stable, felt to be a scar, and some lumbar spine interpretation. Her electrocardiogram shows she has a right bundle-branch conduction defect sinus rhythm. Cannot exclude inferior infarct age undetermined, delay in R-wave progression may be suggestive of prior inferior infarction or lead placement because of the body habitus. ASSESSMENT AND PLAN: 1. Atypical chest pain. 2. Abdominal pain, nausea and vomiting. 3. Diabetes. 4. Hypertension. 5. Morbid obesity. 6. History of tobacco use disorder. Dr. Cole, this patient was seen in cardiac consultation. The patient's cardiac enzyme minimally abnormal, however, she has several risk factors for coronary disease include diabetes, high blood pressure as well as smoking and obesity. Her troponins do not meet criteria for World Health Organization of myocardial infarction, however, in light of the multiple risk factors is concerned. She should have an echocardiogram to evaluate segmental wall motion abnormalities. She may require further testing including an ischemia evaluation if her cardiac enzymes do turnstile collector to be normal again in the future. Harry Desai M.D. DR: MATILDA JOB#: [id number] CC:
[2017-07-17 20:00] VITALS: BP 119/80
[2017-07-17] MEDS ORDERED: Atorvastatin 20mg tab ORAL SCH (21:00)
[2017-07-18] VITALS: BP 110/87
[2017-07-18 04:00] VITALS: BP 121/76
[2017-07-18] MEDS: NovoLOG Insulin Flexpen SUBQ SCH ×3 (06:56→16:59)
[2017-07-18] MEDS: Morphine Sulfate 4mg/ml Inj IVP PRN ×2 (07:58→15:03)
[2017-07-18 08:00] VITALS: BP 135/78
[2017-07-18 08:07] LABS: BASOPHILS % (AUTO) 1.4 % (0.0-2.0); LYMPHOCYTES % (AUTO) 38.9 % (20.0-45.0); MEAN CORPUSCULAR HEMOGLOBIN 25.7 PG (27.0-31.0); MEAN CORPUSCULAR HGB CONC 31.6 G/DL (32.0-36.0); MEAN CORPUSCULAR VOLUME 81 FL (80-99); MEAN PLATELET VOLUME 8.9 FL (6.5-10.1); MONOCYTES % (AUTO) 8.2 % (1.0-10.0); NEUTROPHILS % (AUTO) 45.5 % (45.0-75.0); PLATELET COUNT 288 K/UL (150-450); RED BLOOD COUNT 5.08 M/UL (4.20-5.40); RED CELL DISTRIBUTION WIDTH 13.9 % (11.6-14.8); WHITE BLOOD COUNT 6.3 K/UL (4.8-10.8)
[2017-07-18] MEDS: Heparin 5000 units/ml inj SUBQ SCH (08:12)
[2017-07-18] MEDS: Losartan 25mg tab ORAL SCH (08:13)
--- NOTE | 2017-07-18 08:19 | General Progress Note ---
Assessment/Plan Assessment/Plan (1) Intractable abdominal pain (2) Gastritis (3) Lumbar DDD (4) Lumbar Spondylosis (5) Lumbar Radiculopathy (6) Right knee pain (7) H/o Right Total knee replacement Patient will be continued on Morphine and [place]. D/w Dr. Elena and he concurred. Subjective Date patient seen: Jul 18, 2017 Time patient seen: 07:30 - am Allergies: Coded Allergies: No Known Allergies (Unverified , 08/25/13) Subjective REVIEW OF SYSTEMS: Denies rash, fever, chills, dizziness drowsiness or change in weight. No shortness of breath or chest pain. No bowel or bladder incontinence. She is complaining of abdominal pain with low back pain and right knee pain. SUBJECTIVE: Patient is in bed and reports that the pain has reduced and is at a moderate level tolerated on the medications. Xray was reviewed. Objective Last 24 Hour Vital Signs Date Time Temp Pulse Resp B/P (MAP) Pulse Ox O2 Delivery O2 Flow Rate FiO2 07/18/17 08:13 135/78 07/18/17 04:00 74 07/18/17 04:00 96.4 72 20 121/76 95 Room Air 07/18/17 00:00 69 07/18/17 00:00 97.7 79 20 110/87 100 Room Air 07/17/17 20:00 97.7 75 20 119/80 97 Room Air 07/17/17 20:00 90 07/17/17 16:13 97.0 82 18 137/73 97 Room Air 07/17/17 16:00 79 07/17/17 12:55 130/85 07/17/17 12:00 67 07/17/17 12:00 97.2 72 18 130/85 96 Room Air 07/17/17 08:59 97.0 104 18 134/72 97 Room Air Laboratory Tests 07/18/17 07:40: White Blood Count 6.3, Red Blood Count 5.08, Hemoglobin 13.1, Hematocrit 41.4, Mean Corpuscular Volume 81, Mean Corpuscular Hemoglobin 25.7L, Mean Corpuscular Hemoglobin Concent 31.6L, Red Cell Distribution Width 13.9, Platelet Count 288, Mean Platelet Volume 8.9, Neutrophils (%) (Auto) 45.5, Lymphocytes (%) (Auto) 38.9, Monocytes (%) (Auto) 8.2, Eosinophils (%) (Auto) 6.0H, Basophils (%) (Auto ) 1.4 Height (Feet): 5 Height (Inches): 5.00 Weight (Pounds): 195 Objective GENERAL: Alert, awake, oriented x3. HEENT: PERRLA. NECK: Range of motion is full in all directions. No tenderness to paracervical muscles. No adenopathy LUNGS: Decreased breath sounds bilaterally. HEART: Regular. ABDOMEN: Obese with tenderness to palpation. EXTREMITIES: No cyanosis. No clubbing. No edema. NEURO: No changes. Procedure: XRAY L Spine Min 4v Findings: Contrast from prior abdomen pelvis CT is seen within the transverse colon, could obscure pathology. Vertebral body heights are preserved. There is minimal degenerative disc narrowing and vacuum formation and L4-5. There is minimal degenerative disc narrowing at L1-2 and L2-3. The remaining disc spaces are preserved. Sacroiliac joint spaces are preserved. The facet joint spaces are preserved. No acute fractures. No dislocations. Impression: No acute process Degenerative changes, as described ALFONSO KAM Jul 18, 2017 08:19
[2017-07-18 08:24] LABS: ANION GAP 6 mmol/L (5-15); CALCIUM 9.2 MG/DL (8.5-10.1); CARBON DIOXIDE 28 MMOL/L (21-32); CHLORIDE 105 MMOL/L (98-107); CREATININE 0.8 MG/DL (0.55-1.30); GLOMERULAR FILTRATION RATE > 60 mL/min (>60); POTASSIUM 4.6 MMOL/L (3.5-5.1); SODIUM 139 MMOL/L (136-145)
[2017-07-18] MEDS ORDERED: Metoclopramide 10mg/2ml Inj IVP PRN (09:15)
--- NOTE | 2017-07-18 10:06 | GI Progress Note ---
Assessment/Plan Problems: (1) Helicobacter pylori (H. pylori) infection ICD Codes: A04.8 - Other specified bacterial intestinal infections SNOMED: 148550154 (2) Bloating ICD Codes: R14.0 - Abdominal distension (gaseous) SNOMED: 750143845 (3) Anemia ICD Codes: D64.9 - Anemia SNOMED: 682268617 (4) Abdominal pain ICD Codes: R10.9 - Unspecified abdominal pain SNOMED: 98721427 (5) Fatty liver ICD Codes: K76.0 - Fatty liver SNOMED: 379124944 (6) Intractable abdominal pain ICD Codes: R10.9 - Unspecified abdominal pain SNOMED: 09836477 (7) Diabetes ICD Codes: E11.9 - Diabetes SNOMED: 48489719 Status: stable Status Narrative Discussed with Dr. Lambert. Assessment/Plan s/p EGD/colon 04/25/17 >> gastritis, hemorrhoids H. Pylori positive Lipase negative CT AP >> fatty liver symptomatic treatment at this time zofran prn, low dose reglan prn for possible gastroparesis pain mgmt ppi bowel regime DM mgmt fu labs patient needs outpatient treatment for H. Pylori (8 week treatment) >> script placed in chart recommend outpatient Breathtest r/o SIBO Discussed with Dr. Lambert. Thank you for this patient referral, we will follow. Subjective Subjective feels better less abdominal pain had small BM yesterday Objective Last 24 Hour Vital Signs Date Time Temp Pulse Resp B/P (MAP) Pulse Ox O2 Delivery O2 Flow Rate FiO2 07/18/17 08:13 135/78 07/18/17 04:00 74 07/18/17 04:00 96.4 72 20 121/76 95 Room Air 07/18/17 00:00 69 07/18/17 00:00 97.7 79 20 110/87 100 Room Air 07/17/17 20:00 97.7 75 20 119/80 97 Room Air 07/17/17 20:00 90 07/17/17 16:13 97.0 82 18 137/73 97 Room Air 07/17/17 16:00 79 07/17/17 12:55 130/85 07/17/17 12:00 67 07/17/17 12:00 97.2 72 18 130/85 96 Room Air Laboratory Tests Test 07/18/17 07:40 White Blood Count 6.3 K/UL (4.8-10.8) Red Blood Count 5.08 M/UL (4.20-5.40) Hemoglobin 13.1 G/DL (12.0-16.0) Hematocrit 41.4 % (37.0-47.0) Mean Corpuscular Volume 81 FL (80-99) Mean Corpuscular Hemoglobin 25.7 PG (27.0-31.0) L Mean Corpuscular Hemoglobin Concent 31.6 G/DL (32.0-36.0) L Red Cell Distribution Width 13.9 % (11.6-14.8) Platelet Count 288 K/UL (150-450) Mean Platelet Volume 8.9 FL (6.5-10.1) Neutrophils (%) (Auto) 45.5 % (45.0-75.0) Lymphocytes (%) (Auto) 38.9 % (20.0-45.0) Monocytes (%) (Auto) 8.2 % (1.0-10.0) Eosinophils (%) (Auto) 6.0 % (0.0-3.0) H Basophils (%) (Auto) 1.4 % (0.0-2.0) Sodium Level 139 MMOL/L (136-145) Potassium Level 4.6 MMOL/L (3.5-5.1) Chloride Level 105 MMOL/L (98-107) Carbon Dioxide Level 28 MMOL/L (21-32) Anion Gap 6 mmol/L (5-15) Blood Urea Nitrogen 13 mg/dL (7-18) Creatinine 0.8 MG/DL (0.55-1.30) Estimat Glomerular Filtration Rate > 60 mL/min (>60) Glucose Level 181 MG/DL (74-106) H Calcium Level 9.2 MG/DL (8.5-10.1) Troponin I 0.085 ng/mL (0.000-0.056) Height (Feet): 5 Height (Inches): 5.00 Weight (Pounds): 195 General Appearance: WD/WN, no apparent distress, alert, overweight Cardiovascular: normal rate Respiratory/Chest: normal breath sounds, no respiratory distress Abdominal Exam: normal bowel sounds, non tender, soft Extremities: normal range of motion, non-tender Calderon,Belkys Christo N.P. Jul 18, 2017 10:06
[2017-07-18 12:00] VITALS: BP 125/76
--- NOTE | 2017-07-18 15:18 | Pulmonology Progress Note ---
Assessment/Plan Problems: (1) Non-ST elevation (NSTEMI) myocardial infarction (2) Diverticulosis (3) HTN (hypertension) (4) Diabetes (5) Abdominal pain Assessment/Plan f/u troponin stress testing in process GI evaluation appreciated pt will need outpatient treatment for H. pylori dc home if stress test is negative. Subjective ROS Limited/Unobtainable: No Constitutional: Reports: no symptoms HEENT: Repors: no symptoms Respiratory: Reports: no symptoms Cardiovascular: Reports: no symptoms Allergies: Coded Allergies: No Known Allergies (Unverified , 08/25/13) Objective Last 24 Hour Vital Signs Date Time Temp Pulse Resp B/P (MAP) Pulse Ox O2 Delivery O2 Flow Rate FiO2 07/18/17 12:00 98.1 73 18 125/76 95 Room Air 07/18/17 08:13 135/78 07/18/17 08:00 97.5 82 20 135/78 98 Room Air 07/18/17 08:00 87 07/18/17 04:00 74 07/18/17 04:00 96.4 72 20 121/76 95 Room Air 07/18/17 00:00 69 07/18/17 00:00 97.7 79 20 110/87 100 Room Air 07/17/17 20:00 97.7 75 20 119/80 97 Room Air 07/17/17 20:00 90 07/17/17 16:13 97.0 82 18 137/73 97 Room Air 07/17/17 16:00 79 General Appearance: WD/WN HEENT: normocephalic, atraumatic Respiratory/Chest: chest wall non-tender, lungs clear Cardiovascular: normal peripheral pulses, normal rate Abdomen: normal bowel sounds, soft, non tender Genitourinary: normal external genitalia Extremities: no clubbing Skin: no rash Neurologic/Psychiatric: post doctoral fellow II-XII grossly normal Laboratory Tests 07/18/17 07:40: White Blood Count 6.3, Red Blood Count 5.08, Hemoglobin 13.1, Hematocrit 41.4, Mean Corpuscular Volume 81, Mean Corpuscular Hemoglobin 25.7L, Mean Corpuscular Hemoglobin Concent 31.6L, Red Cell Distribution Width 13.9, Platelet Count 288, Mean Platelet Volume 8.9, Neutrophils (%) (Auto) 45.5, Lymphocytes (%) (Auto) 38.9, Monocytes (%) (Auto) 8.2, Eosinophils (%) (Auto) 6.0H, Basophils (%) (Auto ) 1.4, Sodium Level 139, Potassium Level 4.6, Chloride Level 105, Carbon Dioxide Level 28, Anion Gap 6, Blood Urea Nitrogen 13, Creatinine 0.8, Estimat Glomerular Filtration Rate > 60, Glucose Level 181H, Calcium Level 9.2, Troponin I 0.085H Current Medications Medications (Trade) Dose Ordered Sig/Jaya Route PRN Reason Start Time Stop Time Status Last Admin Dose Admin Acetaminophen (Tylenol) 650 mg Q4H PRN ORAL fever 07/16/17 22:00 08/15/17 21:59 Acetaminophen/ Hydrocodone Bitart ([place] 7.5/325) 1 ea Q4H PRN ORAL Moderate breakthough pain 07/17/17 08:45 07/24/17 08:44 Al Hydroxide/Mg Hydroxide (Mylanta II) 30 ml Q6H PRN ORAL dyspepsia 07/16/17 22:00 08/15/17 21:59 Atorvastatin Calcium (Lipitor) 40 mg BEDTIME ORAL 07/17/17 21:00 08/16/17 20:59 07/17/17 20:52 Dextrose (Dextrose 50%) STAT PRN IV Hypoglycemia 07/16/17 22:00 08/15/17 21:59 Docusate Sodium (Colace) 100 mg TWICE A DAY ORAL 07/18/17 18:00 08/17/17 17:59 Gabapentin (Neurontin) 300 mg THREE TIMES A DAY ORAL 07/17/17 09:00 08/16/17 08:59 07/18/17 13:31 Heparin Sodium (Porcine) (Heparin 5000 units/ml) 5,000 units EVERY 12 HOURS SUBQ 07/17/17 09:00 08/16/17 08:59 07/18/17 08:12 Insulin Aspart (NovoLOG) BEFORE MEALS AND HS SUBQ 07/17/17 06:30 08/16/17 06:29 07/18/17 06:56 Lorazepam (Ativan 2mg/ml 1ml) 0.5 mg Q4H PRN IV For Anxiety 07/16/17 22:00 07/23/17 21:59 Losartan Potassium (Cozaar) 25 mg DAILY ORAL 07/17/17 12:00 08/16/17 11:59 07/18/17 08:13 Methocarbamol (Robaxin) 500 mg Q8H PRN ORAL muscle spasm 07/17/17 08:45 08/16/17 08:44 Metoclopramide HCl (Reglan) 5 mg Q8H PRN IVP Nausea & Vomiting 07/18/17 09:15 08/17/17 09:14 Morphine Sulfate (Morphine Sulfate) 4 mg Q4H PRN IVP For Pain 7-10 07/16/17 22:00 07/23/17 21:59 07/18/17 15:03 Ondansetron HCl (Zofran) 4 mg Q6H PRN IVP Nausea & Vomiting 07/16/17 22:00 08/15/17 21:59 Polyethylene Glycol (Miralax) 17 gm BEDTIME ORAL 07/18/17 21:00 08/17/17 20:59 Polyethylene Glycol (Miralax) 17 gm HSPRN PRN ORAL Constipation 07/16/17 22:00 08/15/17 21:59 Regadenoson (Lexiscan) 0.4 mg ONCE PRN IV CARDIAC STRESS TEST 07/17/17 11:45 07/19/17 23:59 07/18/17 15:03 Zolpidem Tartrate (Ambien) 5 mg HSPRN PRN ORAL Insomnia 07/16/17 22:00 07/23/17 21:59 TC BOND Jul 18, 2017 15:18
[2017-07-18 16:03] VITALS: BP 114/65
--- NOTE | 2017-07-18 16:23 | Cardiology Report ---
APPROVED REPORT EKG Measurement Heart [id number] MD [id number] Normal sinus rhythm Right bundle branch block Possible Lateral infarct, age undetermined Abnormal ECG
--- NOTE | 2017-07-18 16:23 | Diagnostic Imaging Report ---
Indications: 62-year-old female with chest pain Technique: Single day single isotope protocol utilized. Initially, resting images obtained using IV administration 10.4 millicuries 99M technetium Myoview. Subsequently, patient underwent lexiscan stress testing. See cardiology report for details. During plexus can infusion, IV administration 31.6 mCi 99 M technetium Myoview. SPECT and planar images obtained. SPECT images gated to 8 phases of the cardiac cycle were also obtained, and reformatted into cine images for evaluation of ejection fraction. Comparison: None Findings: Cardiology report does not describe presence or absence of symptoms during infusion. Per cardiology report, resting EKG demonstrates normal sinus rhythm with right bundle branch block. During infusion, nonsignificant ST-T wave changes were noted. Imaging demonstrates very small area of slightly decreased activity at the apex on both sets of long axis images which is less conspicuous on the resting images are no other fixed nor reversible post stress perfusion defects are demonstrated. Normal cardiac chamber size. Calculated post stress ejection fraction 64%. No focal wall motion abnormality Impression: Nonischemic clinical response to pharmacologic stress, per cardiology report Nonischemic electrocardiographic response to pharmacologic stress, per cardiology report Small subtle area of decreased post stress perfusion at the apex which is slightly less conspicuous on the resting images. Suspect this is most likely artifactual, but small focus of ischemia not completely excludable. Otherwise, no evidence of ischemia at level of stress achieved Calculated post stress ejection fraction 64%
--- NOTE | 2017-07-18 16:58 | Cardiology Report ---
APPROVED REPORT EKG Measurement Heart [id number] MD [id number] Normal sinus rhythm Possible Left atrial enlargement Right bundle branch block Inferior infarct, age undetermined Abnormal ECG
[2017-07-18] MEDS ORDERED: Docusate 100mg cap ORAL SCH (18:00)
[2017-07-18 20:00] VITALS: BP 119/70
[2017-07-18] MEDS ORDERED: Miralax 17gm pkt ORAL SCH (21:00)
--- NOTE | 2017-07-19 15:45 | Discharge Summary ---
Discharge Summary Hospital Course Date of Admission Jul 16, 2017 at 21:46 Date of Discharge Jul 18, 2017 at 21:00 Admitting Diagnosis N-STEMI, ELEVATED TROPONIN HPI Lily Simon is a 62 year old female who was admitted on Jul 16, 2017 at 21:46 for N-Stemi, Elevated Troponin Hospital Course [id number] Discharge Discharge Disposition Patient was discharged to Home (01) Discharge Diagnoses: Ellie Flores NP Jul 19, 2017 15:45
--- NOTE | 2017-07-19 22:45 | Discharge Summary 2 SIG ---
DATE OF ADMISSION: 07/16/2017 DATE OF DISCHARGE: 07/18/2017 CONSULTANTS: 1. Carlos Alberto Lambert M.D. 2. Harry Desai M.D. 3. Coral Elena M.D. BRIEF HOSPITAL COURSE: The patient is a 62-year-old female with recurrent abdominal/suprapubic pain for three to four days extending to the left chest area. She was last admitted at [facility] in April. The patient had a CT and ultrasound of the abdomen then that showed fatty liver. On evaluation at ED, CT of the abdomen and pelvis showed unremarkable appendix. There was no colitis, diverticulitis, or bowel obstruction. Chest x-ray showed no acute disease. Blood work showed elevated troponin with EKG showing right bundle-branch block with T-wave inversion in V3 similar to EKG on April. She was given gastrointestinal cocktail and stated that she felt better. She was admitted for cardiac evaluation. Cardiac enzymes were minimally abnormal and she has several risk factors for coronary disease including diabetes, high blood pressure, as well as smoking and obesity. She was given aspirin and was continued on Lipitor. CT of the abdomen and pelvis showed no acute abnormality. Lumbar spine x-ray with no acute process seen. She had an esophagogastroduodenoscopy done on 04/25/2017 where she was found to have gastritis and hemorrhoids. Biopsy showed positive H. pylori. She was given Zofran and Reglan and was given morphine and [place] for back pain. She underwent echocardiogram that showed ejection fraction of 60% to 65% with normal left ventricular size, function, and wall motion. There was mild aortic insufficiency, trace mitral regurgitation, and trace tricuspid regurgitation. Myocardial perfusion scan was nonischemic. There was no evidence of ischemia at the level of stress achieved. She was discharged home and would need to continue H. pylori treatment for eight weeks. FINAL DIAGNOSES: 1. Non-ST elevated myocardial infarction. 2. Diverticulosis. 3. Hypertension. 4. Diabetes. 5. Helicobacter pylori infection. 6. Anemia. 7. Fatty liver. 8. Diabetes mellitus. 9. Intractable abdominal pain. 10. Lumbar degenerative disk disease. 11. Lumbar spondylosis. 12. Lumbar radiculopathy. 13. Right knee pain. 14. History of right total knee replacement. DISPOSITION: The patient was discharged home. DISCHARGE MEDICATIONS: Refer to medication list. FOLLOWUP: The patient was advised to follow up with PMD in a week and to complete eight-week H. pylori treatment. Recommend outpatient breath test to rule out small intestinal bacterial overgrowth. Elsa Cole M.D. I have been assigned to dictate discharge summary on this account and I was not involved in the patient's management. Ellie Flores N.P. DR: ANDREY JOB#: [id number] CC: EL[place]
== END 2017-07-18 21:00 | disposition home or self-care (01) | DRG 190 ==
LOC: EMR 13:15 → 2E 21:46 → EDBEDREQ 21:52
DX: I21.4 Non-ST elevation (NSTEMI) myocardial infarction (principal); E11.9 Type 2 diabetes mellitus without complications; K76.0 Fatty (change of) liver, not elsewhere classified; E66.01 Morbid (severe) obesity due to excess calories; I10 Essential (primary) hypertension; B96.81 Helicobacter pylori [H. pylori] as the cause of diseases classified elsewhere; D64.9 Anemia, unspecified; K57.90 Diverticulosis of intestine, part unspecified, without perforation or abscess without bleeding; R10.9 Unspecified abdominal pain; M47.26 Other spondylosis with radiculopathy, lumbar region; M25.561 Pain in right knee; Z96.651 Presence of right artificial knee joint; Z87.891 Personal history of nicotine dependence; K29.70 Gastritis, unspecified, without bleeding
CPT/HCPCS: 36415; 71010; 72110; 74177; 78452; 80048; 80053; 81003; 82962; 83605; 83690; 83880; 84443; 84484; 85025; 85610; 85730; 93005; 93017; 93306; 99285; J1815; J2785

== ENCOUNTER 2017-08-15 14:27 | Emergency (ER) | payer OTHER ==
[~2017-08-15] VITALS: Ht 170.2 cm; Wt 109.8 kg
[2017-08-15 14:45] VITALS: BP 121/75
[2017-08-15] MEDS ORDERED: Mylanta II UD 30ml ORAL ONE (15:15)
[2017-08-15] MEDS ORDERED: Lidocaine 2% Visc 15ml soln ORAL ONE (15:15)
[2017-08-15] MEDS ORDERED: Morphine Sulfate 4mg/ml Inj IVP ONE ×2 (15:15→16:15)
[2017-08-15] MEDS ORDERED: Dicyclomine HCl 10mg/5ml oral soln ORAL ONE (15:15)
[2017-08-15 16:19] LABS: ANION GAP 9 mmol/L (5-15); CALCIUM 9.5 MG/DL (8.5-10.1); CARBON DIOXIDE 27 MMOL/L (21-32); CHLORIDE 106 MMOL/L (98-107); CREATININE 0.8 MG/DL (0.55-1.30); GLOMERULAR FILTRATION RATE > 60 mL/min (>60); POTASSIUM 4.1 MMOL/L (3.5-5.1); SODIUM 142 MMOL/L (136-145)
[2017-08-15 16:22] LABS: BASOPHILS % (AUTO) 1.6 % (0.0-2.0); EOSINOPHILS % (AUTO) 2.5 % (0.0-3.0); MEAN CORPUSCULAR HEMOGLOBIN 24.9 PG (27.0-31.0); MEAN CORPUSCULAR HGB CONC 30.7 G/DL (32.0-36.0); MEAN CORPUSCULAR VOLUME 81 FL (80-99); MEAN PLATELET VOLUME 7.2 FL (6.5-10.1); MONOCYTES % (AUTO) 6.5 % (1.0-10.0); NEUTROPHILS % (AUTO) 57.5 % (45.0-75.0); PLATELET COUNT 289 K/UL (150-450); RED BLOOD COUNT 4.52 M/UL (4.20-5.40); RED CELL DISTRIBUTION WIDTH 13.4 % (11.6-14.8)
[2017-08-15 16:24] LABS: ALANINE AMINOTRANSFERASE 34 U/L (12-78); ASPARTATE AMINO TRANSFERASE 22 U/L (15-37); LIPASE 71 U/L (73-393)
[2017-08-15] MEDS ORDERED: AMOXICILLIN500 MG ORAL (17:37)
[2017-08-15] MEDS ORDERED: CLARITHROMYCIN500 MG PO (17:37)
[2017-08-15] MEDS ORDERED: OMEPRAZOLE40 M1 ORAL (17:37)
[2017-08-15] MEDS ORDERED: TRAMADOL HCL50 MG ORAL (17:37)
[2017-08-15] MEDS ORDERED: FLUCONAZOLE100 MG ORAL (17:39)
[2017-08-15 17:46] VITALS: BP 103/76
[2017-08-15 17:47] VITALS: BP 121/75
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
== END 2017-08-15 17:48 | disposition home or self-care (01) ==
LOC: EMR 16:39
DX: K29.70 Gastritis, unspecified, without bleeding (principal); B96.81 Helicobacter pylori [H. pylori] as the cause of diseases classified elsewhere; I10 Essential (primary) hypertension; E11.9 Type 2 diabetes mellitus without complications; K21.9 Gastro-esophageal reflux disease without esophagitis
CPT/HCPCS: 36415; 80053; 83690; 85025; 96361; 96374; 96375; 99284; J2270; S0028

== ENCOUNTER 2017-08-26 12:58 | Emergency (ER) | payer OTHER ==
[~2017-08-26] VITALS: Ht 170.2 cm; Wt 108.9 kg
[~2017-08-26 12:58] MED LIST changes: +AMOXICILLIN500 MG ORAL; +CLARITHROMYCIN500 MG PO; +FLUCONAZOLE100 MG ORAL; +OMEPRAZOLE40 M1 ORAL
[2017-08-26] MEDS ORDERED: oxyCODONE HCL/Acetaminophen 5/325mg ORAL ONE (13:45)
--- NOTE | 2017-08-26 16:02 | Emergency Room Report ---
History of Present Illness General Chief Complaint: Back Pain-No Injury Source: Patient Present Illness HPI 62-year-old female presents to the emergency department complaining of midline lower back pain 8/10 in severity x3 days status post fall off a barstool 3 days ago. Patient reports worsening of her symptoms in addition to intermittent numbness and tingling in the bilateral lower extremity is. Patient denies urinary retention. She reports history of paresthesias in the right leg intermittently for several years and has been evaluated for them, however has never had symptoms in the left. her paresthesias come and go, they are not constant in nature. States pain is exacerbated upon movement, palpation or when ambulating. She reports past history of back pain however changing character with intermittent lower extremity numbness and tingling, and exacerbation of pain after acute fall has her worried. Denies fevers, chills, neck pain or LOC. Denies gross loss of sensation or gross motor movements of the extremities, incontinence of bowel or bladder. Denies CP, Palpitations, LOC , AMS, dizziness, Changes in Vision, or a sudden severe headache. Allergies: Coded Allergies: No Known Allergies (Unverified , 08/25/13) Patient History Past Medical History: see triage record Past Surgical History: none Pertinent Family History: none Now: No Reviewed Nursing Documentation: PMH: Agreed, PSxH: Agreed Nursing Documentation-PMH Hx Cardiac Problems: No Hx Hypertension: Yes Hx Pacemaker: No Hx Asthma: No Hx COPD: No Hx Diabetes: Yes Hx Cancer: No Hx Gastrointestinal Problems: Yes - Acid Reflux Hx Dialysis: No Hx Neurological Problems: No Hx Cerebrovascular Accident: No Hx Seizures: No Review of Systems All Other Systems: negative except mentioned in HPI Physical Exam Vital Signs Date Time Temp Pulse Resp B/P (MAP) Pulse Ox O2 Delivery O2 Flow Rate FiO2 08/26/17 13:18 98.2 90 16 156/94 98 Room Air Sp02 EP Interpretation: reviewed, normal General Appearance: no apparent distress, alert, GCS 15, non-toxic Head: normocephalic, atraumatic ENT: hearing grossly normal, normal voice Neck: full range of motion Respiratory: chest non-tender, lungs clear, normal breath sounds, speaking full sentences Cardiovascular #1: regular rate, rhythm, normal capillary refill Rectal: deferred Genitourinary: normal inspection, no CVA tenderness Musculoskeletal: back normal, normal range of motion, other - staggered gait/ compensating, tender - midline and paraspinal ttp to the lumbar and sacral area , no obvious step-offs, no bruising. ROM exacerbates pain. Neurologic: alert, oriented x3, responsive, motor strength/tone normal, sensory intact, speech normal, no pronator, other - no LE motor weakness, no sensory deficit. DTR's symmetric knee, and achilles. , grossly normal Psychiatric: judgement/insight normal, memory normal, mood/affect normal, no suicidal/homicidal ideation Reflexes: 2+ knee (R), 2+ knee (L) Skin: normal color, no rash, warm/dry, well hydrated Medical Decision Making PA Attestation Dr. Osorio is my supervising Physician whom patient management has been discussed with. Diagnostic Impression: Primary Impression: Back pain Qualified Codes: M54.5 - Low back pain Additional Impressions: Spinal stenosis of thoracic region Spinal stenosis of lumbar region Qualified Codes: M48.061 - Spinal stenosis, lumbar region without neurogenic claudication ER Course 62-year-old female presents to the emergency department complaining of midline lower back pain 8/10 in severity x3 days status post fall off a barstool 3 days ago. Patient reports worsening of her symptoms in addition to intermittent numbness and tingling in the bilateral lower extremity is. Patient denies urinary retention. She reports history of paresthesias in the right leg intermittently for several years and has been evaluated for them, however has never had symptoms in the left. her paresthesias come and go, they are not constant in nature. States pain is exacerbated upon movement, palpation or when ambulating. She reports past history of back pain however changing character with intermittent lower extremity numbness and tingling, and exacerbation of pain after acute fall has her worried. Denies fevers, chills, neck pain or LOC. Denies gross loss of sensation or gross motor movements of the extremities, incontinence of bowel or bladder. Denies CP, Palpitations, LOC , AMS, dizziness, Changes in Vision, or a sudden severe headache. Ddx considered but are not limited to Fracture, dislocation, contusion, Sprain/ Strain/Spasm, Herniated disk, spinal chord injury Epidural abscess, Neoplastic mets. just to name a few. Vital signs: are WNL, pt. is afebrile H&PE are most consistent with musculoskeletal injury will perform imaging to r/ o fractures/dislocations. ORDERS: - CT T & L SPINE NO CONTRAST: No fractures or malalignments degenerative changes noted with multilevel stenosis please official radiology report for further detail. ED INTERVENTIONS: - Robaxin PO DISCHARGE: At this time pt. is stable for d/c to home. Will provide printed patient care instructions, and any necessary prescriptions. Care plan and follow up instructions have been discussed with the patient prior to discharge. CT/MRI/US Diagnostic Results CT/MRI/US Diagnostic Results #1: Imaging Test Ordered: CT T-Spine Impression No fracture or malalignment. Multiple level spondylosis change with posterior disc osteophyte complexes and central and foraminal stenosis with large posterior disc osteophyte complexes and central canal narrowing at at T8-T10- Per official radiology report- CT/MRI/US Diagnostic Results #2: Imaging Test Ordered: Ct L-SPINE Impression No fracture or malalignment, multilevel spondylosis/discogenic changes with bilateral foraminal stenosis. Per official radiology report- Please see report for specific details. Last Vital Signs Date Time Temp Pulse Resp B/P (MAP) Pulse Ox O2 Delivery O2 Flow Rate FiO2 08/26/17 13:18 98.2 90 16 156/94 98 Room Air Disposition: HOME, SELF-CARE Condition: Stable Scripts Methocarbamol* (ROBAXIN-750*) 750 Mg Tablet 750 MG PO QID for 7 Days, #28 TAB 0 Refills Prov: Ofelia Avila P.A. 08/26/17 Lidocaine (Lidoderm) 1 Each Adh..patch 1 PATCH TOPIC DAILY, #25 PATCH 0 Refills Patch(es) may remain in place for up to 12 hours in any 24-hour period. Prov: Ofelia Avila P.A. 08/26/17 Referrals: [facility],REFERRING (PCP) Patient Instructions: Back Pain, Adult, Spinal Stenosis Additional Instructions: Take medications as directed. Follow up with a Primary Care Provider in 3-5 days, for Spinal Master Plumber evaluation if your symptoms continue. --Please review list of primary care clinics, if you do not already have a primary care provider Return sooner to ED if new symptoms occur, or current symptoms become worse. Do not drink alcohol, drive, or operate heavy machinery while taking Robaxin as this may cause drowsiness. - Please note that this Emergency Department Report was dictated using [employer]meat cutter apprentice technology software, occasionally this can lead to erroneous entry secondary to interpretation by the dictation equipment. Ofelia Avila Aug 26, 2017 16:02
[2017-08-26 16:13] VITALS: BP 146/85
[2017-08-26] MEDS ORDERED: LIDODERM700 M1 TOPIC (16:30)
[2017-08-26] MEDS ORDERED: ROBAXIN-750750 MG PO (16:30)
[2017-08-26 16:39] VITALS: BP 125/85
--- NOTE | 2017-08-27 08:29 | Diagnostic Imaging Report ---
Indication: Pain post trauma Technique: CT scan of lumbar spine performed without intravenous contrast material. Axial, coronal, and sagittal images were generated. Dose: Total Dose Length Product - DLP [address] Dose Index - CTDIvol(s) 29.41 mGy. Automated exposure control was utilized for dose reduction. Comparison: None Findings: L5-S1: The disc is normal there is narrowing of the neural foramina bilaterally with loss of perineural fat bilaterally. There is incomplete fusion of the right lamina of S1. Spinal canal is normal in width. There is mild degenerative changes in the facets. L4-L5: There is a vacuum disc. Spinal canal is normal in width. Narrowing of both neural foramina is present with loss of perineural fat around both L4 roots. Mild degenerative changes noted in the posterior facets with vacuum facets. There is mild ligamentous hypertrophy. Is some sclerosis in the posterior inferior aspect of the vertebral body. L3-L4: There is a vacuum disc. Bulging of the annulus is noted. Vacuum facets are also present. There is narrowing of the foramina with loss of perineural fat around the L3 roots. The canal is normal in width. Is mild posterior spur formation. L2-L3: There is a vacuum disc with mild bulging of the annulus. The neural foramina demonstrate some loss of perineural fat but are otherwise unremarkable. Spinal canal is normal in width. Facets are unremarkable. Or some sclerosis of the posterior inferior aspect of the vertebral body. Some mild posterior spur formation. L1-L2: There is a vacuum disc. The facets are normal. Spinal canal is normal in width. The neural foramina are slightly narrowed with some loss of perineural fat. Impression: Multilevel foraminal narrowing with loss of perineural fat around multiple roots. Multiple vacuum disks consistent with degenerative change. Multiple vacuum facets consistent with degenerative change. No evidence of acute injury. The above report is concordant with preliminary reading by [employer] . The CT scanner at [facility] is accredited by the [employer] and the scans are performed using protocols designed to limit radiation exposure to as low as reasonably achievable to attain images of sufficient resolution adequate for diagnostic evaluation.
--- NOTE | 2017-08-27 08:34 | Diagnostic Imaging Report ---
Indication: Pain post trauma Technique: CT scan of thoracic spine performed with axial, coronal, and sagittal images generated. No contrast was utilized. Dose: Total Dose Length Product - DLP [address] Dose Index - CTDIvol(s) 48.47 mGy. Automated exposure control was utilized for dose reduction. Comparison: None Findings: Examination demonstrates narrowing of multiple disks, especially from T4 through T10. This is worst at T8-9 and T9-T10. Sclerosis and endplates is noted at several levels. Alignment is intact. No acute fracture. No bone destruction. There is facet degenerative change at several levels. Posterior disc osteophyte complexes are noted at multiple levels, worst at T8-9 and T9-10 with narrowing of the canal at those 2 levels., Greatest at T9-10. There is also right-sided osteophyte formation at multiple levels. Impression: Degenerative spondylosis with posterior disc osteophyte formation and narrowing of the canal at T8-9 and T9-10. Right-sided osteophyte formation at multiple levels. The above report is concordant with preliminary reading by [employer] . The CT scanner at [facility] is accredited by the [employer] and the scans are performed using protocols designed to limit radiation exposure to as low as reasonably achievable to attain images of sufficient resolution adequate for diagnostic evaluation.
== END 2017-08-26 16:39 | disposition home or self-care (01) ==
LOC: EMR 13:35
DX: M54.5 Low back pain (principal); M48.061 Spinal stenosis, lumbar region without neurogenic claudication; M48.04 Spinal stenosis, thoracic region; I10 Essential (primary) hypertension; Z91.81 History of falling; E11.9 Type 2 diabetes mellitus without complications; K21.9 Gastro-esophageal reflux disease without esophagitis
CPT/HCPCS: 72128; 72131; 99284

== ENCOUNTER 2017-10-16 10:25 | Emergency (ER) | payer OTHER ==
[~2017-10-16] VITALS: Ht 170.2 cm; Wt 108.9 kg
[~2017-10-16 10:25] MED LIST changes: +LIDODERM700 M1 TOPIC; +ROBAXIN-750750 MG PO
[2017-10-16 11:21] VITALS: BP 145/88
[2017-10-16] MEDS ORDERED: BENADRYL ALLERG25 M1 PO (11:53)
[2017-10-16] MEDS ORDERED: PREDNISONE20 MG ORAL (11:53)
[2017-10-16 11:59] VITALS: BP 145/88
--- NOTE | 2017-10-16 12:42 | Emergency Room Report ---
History of Present Illness General Chief Complaint: Pain Source: Patient, Medical Record Present Illness HPI 62-year-old female, no significant past medical history, presenting with itchy facial rash. Patient states that a few days ago she went to get her hair dyed in the salon, her scalp proceeded to get very itchy red and swollen, and then she developed swelling around her right eye. States it is more itchy than it is painful. No purulent drainage. When opened there is no blurry vision. No shortness of breath wheezing or throat swelling Allergies: Coded Allergies: No Known Allergies (Unverified , 08/25/13) Patient History Past Medical History: see triage record Past Surgical History: none Pertinent Family History: none Reviewed Nursing Documentation: PMH: Agreed, PSxH: Agreed Nursing Documentation-PMH Hx Cardiac Problems: No Hx Hypertension: Yes Hx Pacemaker: No Hx Asthma: No Hx COPD: No Hx Diabetes: Yes Hx Cancer: No Hx Gastrointestinal Problems: Yes - Acid Reflux Hx Dialysis: No Hx Neurological Problems: No Hx Cerebrovascular Accident: No Hx Seizures: No Review of Systems All Other Systems: negative except mentioned in HPI Physical Exam Vital Signs Date Time Temp Pulse Resp B/P (MAP) Pulse Ox O2 Delivery O2 Flow Rate FiO2 10/16/17 10:30 98.1 80 18 145/88 100 Room Air 98.1 Sp02 EP Interpretation: reviewed, normal General Appearance: normal inspection, well appearing, no apparent distress, alert, GCS 15, non-toxic Head: normocephalic, atraumatic Eyes: bilateral eye other - Right-sided periorbital edema, no warmth or erythema, bilateral eyes pupils are equal and reactive to light, extraocular movements intact, no drainage ENT: normal ENT inspection, normal pharynx, normal voice, moist mucus membranes Neck: normal inspection, full range of motion, supple Respiratory: normal inspection, lungs clear, normal breath sounds, no respiratory distress, no retraction, no wheezing, speaking full sentences, chest symmetrical Cardiovascular #1: normal inspection, regular rate, rhythm, no edema, normal capillary refill Cardiovascular #2: 2+ radial (R), 2+ radial (L) Gastrointestinal: normal inspection, non tender, soft, non-distended, no guarding Musculoskeletal: normal inspection, back normal, normal range of motion, non- tender Neurologic: normal inspection, alert, oriented x3, responsive, motor strength/ tone normal, sensory intact, normal gait, speech normal Psychiatric: normal inspection, judgement/insight normal, memory normal Skin: warm/dry, well hydrated, normal turgor, other - Around scalp there is a generalized urticarial rash with excoriation clark Medical Decision Making Diagnostic Impression: Primary Impression: Periorbital edema of right eye Additional Impression: Allergic reaction ER Course 62-year-old female with itchy rash to scalp and eye DDX: Allergic reaction At this time I am not concerned with periorbital or orbital cellulitis given the history of allergic reaction, and presence of itchy rash. Plan: Symptom control ER course: Patient has remained stable during ED stay. Remained stable, speaking complete sentences, medications helped Disposition: Patient is to be discharged to home. Prescriptions given are Benadryl and prednisone Patient is instructed to follow up with their primary care doctor within 5 days for recheck Strict return precautions discussed with patient such as fever, chills, worsening/severe rash, throat swelling, SOB, nausea, vomiting, worsening of right eye swelling which may indicate severe illness. Patient verbalizes understanding and agrees with plan. Please note that this Emergency Department Report was dictated using [employer] license clerk technology software, occasionally this can lead to erroneous entry secondary to interpretation by the dictation equipment Last Vital Signs Date Time Temp Pulse Resp B/P (MAP) Pulse Ox O2 Delivery O2 Flow Rate FiO2 10/16/17 11:59 98.1 80 18 145/88 100 Room Air 208.6 Disposition: HOME, SELF-CARE Condition: Stable Scripts Diphenhydramine Hcl (BENADRYL ALLERGY) 25 Mg Tablet 25 MG PO Q6H, #30 TAB 0 Refills Prov: Jerome Page M.D. 10/16/17 Prednisone* (PREDNISONE*) 20 Mg Tablet 40 MG ORAL DAILY for 5 Days, #10 TAB 0 Refills Prov: Jerome Page M.D. 10/16/17 Patient Instructions: Allergies, Edema, [id number] Additional Instructions: PLEASE FOLLOW UP WITH YOUR DOCTOR IN 2-3 DAYS WITHOUT FAIL FOR RECHECK Jerome Page M.D. Oct 16, 2017 12:42
== END 2017-10-16 12:00 | disposition home or self-care (01) ==
LOC: EMR 11:30
DX: H05.221 Edema of right orbit (principal); T78.40XA Allergy, unspecified, initial encounter; X58.XXXA Exposure to other specified factors, initial encounter; E11.9 Type 2 diabetes mellitus without complications; I10 Essential (primary) hypertension
CPT/HCPCS: 99284; J7512

== ENCOUNTER 2017-12-11 17:23 | Emergency (ER) | payer OTHER ==
[~2017-12-11] VITALS: Ht 170.2 cm; Wt 110.7 kg
[~2017-12-11 17:23] MED LIST changes: +BENADRYL ALLERG25 M1 PO; +PREDNISONE20 MG ORAL
[2017-12-11 17:39] VITALS: BP 134/79
[2017-12-11] MEDS ORDERED: Cyclobenzaprine 10mg Tab ORAL ONE (18:30)
[2017-12-11] MEDS ORDERED: Ketorolac 30mg Inj IV ONE (18:30)
--- NOTE | 2017-12-11 18:35 | Emergency Room Report ---
History of Present Illness General Chief Complaint: General Complaint Source: Patient, Medical Record Present Illness HPI 62yo F with h/o HTN, DM, tobacco use, sent by pain management clinic for SOB x few days. Patient also has chronic back pain and reports that is unchanged largely. She was not sent for emergent MRI as the triage note states. Pt denies falls/trauma, f/c, saddle anesthesia, weakness, bowel or bladder incontinence. She also reports low back pain, but no chest pain, and this back pain is typical of her herniated disk pain, radiating down both legs, worse with certain positions. Allergies: Coded Allergies: No Known Allergies (Unverified , 08/25/13) Patient History Past Medical History: see triage record Reviewed Nursing Documentation: PMH: Agreed; PSxH: Agreed Nursing Documentation-PMH Past Medical History: No History, Except For Hx Cardiac Problems: No Hx Hypertension: Yes Hx Pacemaker: No Hx Asthma: No Hx COPD: No Hx Diabetes: Yes Hx Cancer: No Hx Gastrointestinal Problems: Yes - Acid Reflux Hx Dialysis: No Hx Neurological Problems: No Hx Cerebrovascular Accident: No Hx Seizures: No Review of Systems All Other Systems: negative except mentioned in HPI Physical Exam Vital Signs Date Time Temp Pulse Resp B/P (MAP) Pulse Ox O2 Delivery O2 Flow Rate FiO2 12/11/17 17:30 98.3 90 18 134/79 95 Room Air 98.2 Sp02 EP Interpretation: reviewed, normal General Appearance: no apparent distress, alert, non-toxic Head: normocephalic Eyes: bilateral eye normal inspection, bilateral eye PERRL, bilateral eye EOMI ENT: normal ENT inspection, hearing grossly normal, normal pharynx, no angioedema, normal voice, moist mucus membranes Neck: normal inspection, full range of motion, supple, supple/symm/no masses Respiratory: chest non-tender, lungs clear, normal breath sounds, chest symmetrical, palpation of chest normal Cardiovascular #1: normal peripheral pulses, regular rate, rhythm Cardiovascular #2: 2+ radial (R), 2+ radial (L) Gastrointestinal: normal inspection, non tender, soft, no mass, no guarding, no rebound Rectal: deferred Genitourinary: normal inspection, no CVA tenderness Musculoskeletal: back normal, gait/station normal, normal range of motion, non- tender, no calf tenderness Neurologic: alert, responsive, 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, motor strength/tone normal, DTRs symmetric, SLR negative - +B/L, sensory intact - normal perineum sensation, speech normal, no Babinski Psychiatric: judgement/insight normal, memory normal, mood/affect normal, no suicidal/homicidal ideation Skin: normal color, no rash, warm/dry, normal turgor Lymphatic: no adenopathy Medical Decision Making Reaction to Intervention: No change Diagnostic Impression: Primary Impression: Dyspnea Additional Impression: Elevated troponin ER Course Patient with normal d-dimer, normal exam, but multiple risk factors for ACS, including diabetes hypertension smoking use. Troponin slightly elevated, no ischemic changes on EKG, no chest pain. Will be admitted for further workup. EKG Diagnostic Results EKG Time: 18:45 EP Interpretation: no st-t changes, no twi Rate: normal Rhythm: NSR ST Segments: no acute changes ASA given to the pt in ED: Yes Rhythm Strip Diag. Results Rhythm Strip Time: 18:54 EP Interpretation: yes Rate: 88 Rhythm: NSR, no PVC's, no ectopy Chest X-Ray Diagnostic Results Chest X-Ray Diagnostic Results : Chest X-Ray Ordered: Yes # of Views/Limited/Complete: 1 View Indication: Shortness of Breath EP Interpretation: Yes Interpretation: no consolidation, no pneumothorax, other - cardiomegaly, small L sided effusion Impression: No acute disease Electronically Signed by: Lucina Penn MD Last Vital Signs Date Time Temp Pulse Resp B/P (MAP) Pulse Ox O2 Delivery O2 Flow Rate FiO2 12/11/17 17:39 98.2 90 18 134/79 95 Room Air 98.2 Status: improved Disposition: XFER SHT-TRM HOSP Condition: Stable Signed Out To: Dr. Lee accepted patient in transfer to [facility] Referrals: [facility],REFERRING (PCP) LUCINA PENN M.D Dec 11, 2017 18:35
[2017-12-11 19:13] LABS: BASOPHILS % (AUTO) 1.7 % (0.0-2.0); EOSINOPHILS % (AUTO) 4.1 % (0.0-3.0); HEMATOCRIT 37.5 % (37.0-47.0); HEMOGLOBIN 12.3 G/DL (12.0-16.0); LYMPHOCYTES % (AUTO) 34.6 % (20.0-45.0); MEAN CORPUSCULAR VOLUME 80 FL (80-99); MONOCYTES % (AUTO) 8.1 % (1.0-10.0); NEUTROPHILS % (AUTO) 51.5 % (45.0-75.0); PLATELET COUNT 256 K/UL (150-450); RED BLOOD COUNT 4.69 M/UL (4.20-5.40); RED CELL DISTRIBUTION WIDTH 13.3 % (11.6-14.8); WHITE BLOOD COUNT 9.3 K/UL (4.8-10.8)
[2017-12-11 19:30] LABS: ANION GAP 7 mmol/L (5-15); BLOOD UREA NITROGEN 14 mg/dL (7-18); CALCIUM 8.9 MG/DL (8.5-10.1); CARBON DIOXIDE 26 MMOL/L (21-32); CHLORIDE 104 MMOL/L (98-107); CREATININE 0.7 MG/DL (0.55-1.30); POTASSIUM 3.9 MMOL/L (3.5-5.1); SODIUM 137 MMOL/L (136-145)
[2017-12-11 19:40] LABS: ALANINE AMINOTRANSFERASE 25 U/L (12-78); ALBUMIN 3.6 G/DL (3.4-5.0); ALKALINE PHOSPHATASE 74 U/L (46-116); ASPARTATE AMINO TRANSFERASE 14 U/L (15-37); BILIRUBIN,TOTAL 0.4 MG/DL (0.2-1.0)
[2017-12-11 23:10] VITALS: BP 132/88
[2017-12-11 23:50] VITALS: BP 132/88
--- NOTE | 2017-12-12 11:04 | Diagnostic Imaging Report ---
Indication: Dyspnea Comparison: 07/16/2017 A single view chest radiograph was obtained. Findings: No definite infiltrate or pulmonary vascular congestion identified. The heart is enlarged. The aorta is mildly enlarged consistent with atherosclerotic vascular disease. The bones are osteopenic. Impression: No acute disease
--- NOTE | 2017-12-12 17:06 | Cardiology Report ---
APPROVED REPORT EKG Measurement Heart [id number] Normal sinus rhythm Left axis deviation Right bundle branch block Inferior infarct, age undetermined Abnormal ECG
== END 2017-12-11 23:50 | disposition short-term general hospital (02) ==
LOC: EMR 18:00
DX: R06.00 Dyspnea, unspecified (principal); R79.89 Other specified abnormal findings of blood chemistry; M54.5 Low back pain; I10 Essential (primary) hypertension; E11.9 Type 2 diabetes mellitus without complications; K21.9 Gastro-esophageal reflux disease without esophagitis; M85.80 Other specified disorders of bone density and structure, unspecified site; I51.7 Cardiomegaly; I45.10 Unspecified right bundle-branch block
CPT/HCPCS: 36415; 71045; 80053; 83880; 84484; 85025; 85379; 93005; 96374; 99285; J1885

== ENCOUNTER 2018-01-04 10:18 | Emergency (ER) | payer OTHER ==
[~2018-01-04] VITALS: Ht 170.2 cm; Wt 108.9 kg
[2018-01-04] MEDS ORDERED: Ketorolac 30mg Inj IM ONE (10:45)
[2018-01-04] MEDS ORDERED: Norco 5mg/325mg tab ORAL ONE (10:45)
[2018-01-04 10:59] VITALS: BP 131/85
[2018-01-04 11:05] LABS: APPEARANCE,URINE CLEAR; BILIRUBIN, URINE NEGATIVE (NEGATIVE); COLOR,URINE PALE YELLOW; GLUCOSE, URINE (UA) 2+ (NEGATIVE); KETONES,URINE NEGATIVE (NEGATIVE); LEUKOCYTE ESTERASE ,URINE NEGATIVE (NEGATIVE); NITRITE,URINE NEGATIVE (NEGATIVE); PH,URINE 5 (4.5-8.0); PROTEIN,URINE NEGATIVE (NEGATIVE); UROBILINOGEN,URINE NORMAL MG/DL (0.0-1.0)
[2018-01-04] MEDS ORDERED: NORCO 5-325 TA1 EACH ORAL (11:46)
[2018-01-04 12:01] VITALS: BP 147/84
--- NOTE | 2018-01-04 12:16 | Diagnostic Imaging Report ---
Indication: Pain Technique: XRAY Knee 3v LT Comparison: None Findings: There is no evidence of acute fracture. There is moderate degenerative change of the knee manifested by joint space narrowing, subchondral sclerosis and tricompartmental osteophyte formation. high location of the patella may be related to suboptimal positioning on lateral view or possibly degenerative change (chondromalacia patellae). There is no significant suprapatellar joint effusion. No radiopaque foreign body seen. IMPRESSION: Moderate osteoarthrosis of the left knee. No evidence of acute fracture. Borderline high location of the patella may be related to suboptimal positioning on lateral view or possibly degenerative change (chondromalacia patellae). Recommend nonemergent MRI of the knee for further evaluation as clinically indicated.
--- NOTE | 2018-01-04 14:52 | Emergency Room Report ---
History of Present Illness General Chief Complaint: Back Pain-No Injury Source: Patient Present Illness HPI Patient presents emergency department today complaining of lower back pain and left knee pain. Patient has history of chronic pain including right knee replacement. She presents emergency department today complaint 2 days of worsening lower back pain. She denies any difficulty with urination but states that she has difficulty with ambulation because of pain. No trauma was noted. No other complaints are noted. Symptoms noted to be moderate.No other modifying factors. No other associated signs and symptoms. No other complaints were noted. Allergies: Coded Allergies: No Known Allergies (Unverified , 08/25/13) Patient History Past Medical History: DM, HTN, GERD Past Surgical History: none Pertinent Family History: none Social History: Denies: smoking, alcohol use, drug use Reviewed Nursing Documentation: PMH: Agreed; PSxH: Agreed Nursing Documentation-PMH Past Medical History: No History, Except For Hx Cardiac Problems: No Hx Hypertension: Yes Hx Pacemaker: No Hx Asthma: No Hx COPD: No Hx Diabetes: Yes Hx Cancer: No Hx Gastrointestinal Problems: Yes - GERD Hx Dialysis: No History Of Psychiatric Problem: No Hx Neurological Problems: No - chronic back pain Hx Cerebrovascular Accident: No Hx Seizures: No Review of Systems All Other Systems: negative except mentioned in HPI Physical Exam Vital Signs Date Time Temp Pulse Resp B/P (MAP) Pulse Ox O2 Delivery O2 Flow Rate FiO2 01/04/18 10:24 98.3 90 16 131/85 95 Room Air 98.2 Sp02 EP Interpretation: reviewed, normal General Appearance: normal inspection, well appearing, no apparent distress, alert Head: atraumatic Eyes: bilateral eye normal inspection ENT: normal ENT inspection, hearing grossly normal, normal voice Neck: normal inspection, full range of motion, supple, no bony tend Respiratory: normal inspection, lungs clear, normal breath sounds, no respiratory distress, no retraction, no wheezing Cardiovascular #1: regular rate, rhythm, no edema Gastrointestinal: normal inspection, normal bowel sounds, non tender, soft, no guarding, no hernia Genitourinary: no CVA tenderness Musculoskeletal: normal inspection, tender - Tender back, tender left knee Neurologic: normal inspection, alert, responsive, speech normal Psychiatric: normal inspection, judgement/insight normal, mood/affect normal Skin: normal inspection, normal color, no rash Procedures Splinting Splinting : Consent: Verbal Location: Left knee Pre-Made Type: JUWAN wrap Pre-Proc Neuro Vasc Exam: normal Post-Proc Neuro Vasc Exam: normal Patient Tolerated: Well Complications: None Medical Decision Making Diagnostic Impression: Primary Impression: Knee strain Additional Impressions: Arthritis Back pain ER Course Patient presents emergency department today complaining of back pain and knee pain. Differential considerations include fracture dislocation versus strain. Given patient's presentation of the patient require x-rays of the knee. X-ray of the knee shows evidence of severe arthritis. However there is no acute fracture. Patient was given pain medications improvement symptoms. Patient was given a prescription for pain medication. Recommend operative follow-up. Juwan bandage was also applied to patient's left knee.Patient is advised to follow up with primary doctor in 2-3 days and return the emergency room for any worsening symptoms and as needed. Other X-Ray Diagnostic Results Other X-Ray Diagnostic Results : X-Ray ordered: Left knee x-ray # of Views/Limited Vs Complete: 3 View Indication: Pain EP Interpretation: Yes Interpretation: no dislocation, no soft tissue swelling, no fractures, other - Significant arthritis Impression: No acute disease Electronically Signed by: Electronically signed by Christina Contreras MD Last Vital Signs Date Time Temp Pulse Resp B/P (MAP) Pulse Ox O2 Delivery O2 Flow Rate FiO2 01/04/18 12:01 98.4 16 147/84 100 Room Air 98.4 01/04/18 12:01 84 Disposition: HOME, SELF-CARE Condition: Stable Scripts Hydrocodone Bit/Acetaminophen 5-325* (NORCO 5-325*) 1 Each Tablet 1 TAB ORAL Q6H PRN for For Pain, #20 TAB 0 Refills Prov: CHRISTINA CONTRERAS M.D. 01/04/18 Patient Instructions: Back Pain, Adult, Knee Sprain, [id number] CHRISTINA CONTRERAS M.D. January 04, 2018 14:52
== END 2018-01-04 12:00 | disposition home or self-care (01) ==
LOC: EMR 11:06
DX: S86.912A Strain of unspecified muscle(s) and tendon(s) at lower leg level, left leg, initial encounter (principal); X58.XXXA Exposure to other specified factors, initial encounter; Y92.9 Unspecified place or not applicable; M17.12 Unilateral primary osteoarthritis, left knee; M54.5 Low back pain; G89.29 Other chronic pain; I10 Essential (primary) hypertension; E11.9 Type 2 diabetes mellitus without complications; K21.9 Gastro-esophageal reflux disease without esophagitis; Z96.651 Presence of right artificial knee joint
CPT/HCPCS: 73562; 81003; 96372; 99283; J1885; 29505

== ENCOUNTER 2018-01-20 11:22 | Emergency (ER) | payer OTHER ==
[~2018-01-20] VITALS: Ht 170.2 cm; Wt 108.9 kg
[2018-01-20 11:33] VITALS: BP 140/83
--- NOTE | 2018-01-20 13:15 | Emergency Room Report ---
History of Present Illness General Chief Complaint: Back Pain-No Injury Source: Patient Present Illness HPI Patient presents with complaints of slip and fall onto her right side several days ago reports that she exacerbated her low back pain there was some component of pain going into the right buttock area as well Denies any other neuropathy Denies any loss of control of bowel or urination Patient was recently here with knee sprain however reports that this is after that episode Allergies: Coded Allergies: No Known Allergies (Unverified , 08/25/13) Patient History Past Medical History: see triage record Pertinent Family History: none Reviewed Nursing Documentation: PMH: Agreed; PSxH: Agreed Nursing Documentation-PMH Hx Cardiac Problems: No Hx Hypertension: Yes Hx Pacemaker: No Hx Asthma: No Hx COPD: No Hx Diabetes: Yes Hx Cancer: No Hx Gastrointestinal Problems: Yes - GERD Hx Dialysis: No Hx Neurological Problems: No - chronic back pain Hx Cerebrovascular Accident: No Hx Seizures: No Review of Systems All Other Systems: negative except mentioned in HPI Physical Exam Vital Signs Date Time Temp Pulse Resp B/P (MAP) Pulse Ox O2 Delivery O2 Flow Rate FiO2 01/20/18 11:28 98.3 99 20 140/83 100 Room Air 98.2 Sp02 EP Interpretation: reviewed, normal General Appearance: well appearing, no apparent distress Head: normocephalic, atraumatic Eyes: bilateral eye PERRL, bilateral eye EOMI ENT: hearing grossly normal, normal pharynx, TMs + canals normal, uvula midline Neck: full range of motion, supple, no meningismus, no bony tend Respiratory: lungs clear, normal breath sounds, no rhonchi, no respiratory distress, no retraction, no accessory muscle use Cardiovascular #1: normal peripheral pulses, regular rate, rhythm, no edema, no gallop, no JVD, no murmur Gastrointestinal: normal bowel sounds, non tender, soft, no mass, no organomegaly, non-distended, no guarding, no hernia, no pulsatile mass, no rebound Genitourinary: no CVA tenderness Musculoskeletal: other - Tender on palpation right-sided paraspinal area [id number], no midline tenderness, sensory intact Neurologic: oriented x3, responsive, 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 as tested, motor strength/ tone normal, sensory intact Psychiatric: mood/affect normal Skin: normal color, no rash, warm/dry, palpation normal Lymphatic: normal inspection, no adenopathy Medical Decision Making Diagnostic Impression: Primary Impression: Back pain Additional Impression: Sciatic leg pain ER Course Given the patient's presentation multiple differentials considered Patient reports that she has had back problems in the past doesn't have specific diagnoses X-ray imaging was negative for acute pathology patient has had several medications filled by different providers recently and was encouraged to follow up with a primary physician for continued care Other X-Ray Diagnostic Results Other X-Ray Diagnostic Results : X-Ray ordered: L-spine # of Views/Limited Vs Complete: 4 View Indication: Pain EP Interpretation: Yes Interpretation: no dislocation, no soft tissue swelling, no fractures Impression: No acute disease Electronically Signed by: Darvin Osorio DO Last Vital Signs Date Time Temp Pulse Resp B/P (MAP) Pulse Ox O2 Delivery O2 Flow Rate FiO2 01/20/18 11:33 98.2 90 20 140/83 100 Room Air 98.2 Status: improved Disposition: HOME, SELF-CARE Condition: Improved [facility]errals: [facility] (PCP) Patient Instructions: Sciatica, Back Pain, Adult Additional Instructions: Patient is provided with the discharge instructions notified to follow up with primary doctor in the next 2-3 days otherwise return to the er with any worsening symptoms. Please note that this report is being documented using [employer] technology. This can lead to erroneous entry secondary to incorrect interpretation by the dictating instrument. Darvin Osorio DO January 20, 2018 13:15
[2018-01-20 13:18] VITALS: BP 140/72
--- NOTE | 2018-01-21 10:59 | Diagnostic Imaging Report ---
Indication: Back pain Comparison: None Findings: 3 views of the lumbar spine were obtained. Multilevel narrowing of intervertebral disks and associated endplate and facet osteophytes are present. No malalignment identified. No acute fracture definitely seen. Impression: Mild spondylosis. No acute injury appreciated.
== END 2018-01-20 13:23 | disposition home or self-care (01) ==
LOC: EMR 11:37
DX: M54.42 Lumbago with sciatica, left side (principal); I10 Essential (primary) hypertension; E11.9 Type 2 diabetes mellitus without complications; K21.9 Gastro-esophageal reflux disease without esophagitis; M47.816 Spondylosis without myelopathy or radiculopathy, lumbar region
CPT/HCPCS: 72020; 99283

== ENCOUNTER 2018-02-01 12:02 | Emergency (ER) | payer OTHER ==
[~2018-02-01] VITALS: Ht 170.2 cm; Wt 108.9 kg
[2018-02-01 12:20] VITALS: BP 147/89
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
[2018-02-01] MEDS ORDERED: Acetaminophen 500mg (ES) tab ORAL ONE (12:45)
[2018-02-01] MEDS ORDERED: IBUPROFEN600 MG ORAL (12:46)
[2018-02-01 13:19] VITALS: BP 147/89
== END 2018-02-01 13:22 | disposition home or self-care (01) ==
LOC: EMR 12:25
DX: S09.8XXA Other specified injuries of head, initial encounter (principal); W22.8XXA Striking against or struck by other objects, initial encounter; Y92.511 Restaurant or cafe as the place of occurrence of the external cause; I10 Essential (primary) hypertension; E11.9 Type 2 diabetes mellitus without complications; K21.9 Gastro-esophageal reflux disease without esophagitis
CPT/HCPCS: 99283

== ENCOUNTER 2018-04-25 12:31 | Emergency (ER) | payer OTHER ==
[~2018-04-25] VITALS: Ht 170.2 cm; Wt 109.8 kg
[~2018-04-25 12:31] MED LIST changes: +IBUPROFEN600 MG ORAL
[2018-04-25] MEDS ORDERED: Methocarbamol 500mg tab ORAL ONE (13:15)
[2018-04-25] MEDS ORDERED: Norco 5mg/325mg tab ORAL ONE (13:15)
--- NOTE | 2018-04-25 13:18 | Emergency Room Report ---
History of Present Illness General Chief Complaint: Back Pain-No Injury Source: Patient, Medical Record Present Illness HPI 63-year-old female patient presents ER complaining of low back and left hip pain for the past few weeks. Reports history of low back pain for several years. Reports the pain has been increasing over the past few weeks to the point that she was secondary for the past 2 days. Reports taking naproxen and muscle relaxant without relief of symptoms. Patient's previously seen in the ER for similar back in place in the past. Denies bowel or bladder incontinence. Also complaining of left hip pain. Reports no recent injury or trauma. Reports that she walks with a cane on her right side compensate for knee surgery that she had "years" ago. Denies dysuria, hematuria. Denies vaginal discharge. Denies fever, chest pain, shortness of breath. states has not seen specialists or had MRI imaging done since previous visit. states awaiting referral. Reports pain radiating down right leg. Allergies: Coded Allergies: No Known Allergies (Unverified , 08/25/13) Patient History Past Medical History: see triage record Reviewed Nursing Documentation: PMH: Agreed; PSxH: Agreed Nursing Documentation-PMH Past Medical History: No History, Except For Hx Cardiac Problems: No Hx Hypertension: Yes Hx Pacemaker: No Hx Asthma: No Hx COPD: No Hx Diabetes: Yes Hx Cancer: No Hx Gastrointestinal Problems: Yes - GERD Hx Dialysis: No History Of Psychiatric Problem: No Hx Neurological Problems: No - chronic back pain Hx Cerebrovascular Accident: No Hx Seizures: No Review of Systems All Other Systems: negative except mentioned in HPI Physical Exam Vital Signs Date Time Temp Pulse Resp B/P (MAP) Pulse Ox O2 Delivery O2 Flow Rate FiO2 04/25/18 12:45 98.4 75 14 136/85 99 Room Air 98.4 Sp02 EP Interpretation: reviewed, normal General Appearance: well appearing, no apparent distress, alert, GCS 15, non- toxic Head: normocephalic, atraumatic Eyes: bilateral eye normal inspection, bilateral eye PERRL ENT: hearing grossly normal, normal pharynx, no angioedema, normal voice, uvula midline, moist mucus membranes Neck: full range of motion, no bony tend Respiratory: lungs clear, normal breath sounds, no rhonchi, no respiratory distress, no accessory muscle use, no wheezing, speaking full sentences Cardiovascular #1: regular rate, rhythm, no edema Gastrointestinal: non tender, soft, no mass, non-distended, no guarding, no pulsatile mass, no rebound Musculoskeletal: back normal, digits/nails normal, gait/station normal, normal range of motion, no calf tenderness, pelvis stable, other - no leg length discrepancy, no bony depression, tender - left lumbar spine, left hip Neurologic: alert, oriented x3, responsive, motor strength/tone normal, SLR negative, sensory intact Psychiatric: mood/affect normal Skin: no rash Medical Decision Making PA Attestation Dr. Solorzano is my supervising Physician whom patient management has been discussed with. Diagnostic Impression: Primary Impression: Hip pain, left Additional Impression: Chronic back pain ER Course Pt. presents to the ED c/o hip and back pain. Ddx considered but are not limited to fracture, sprain, strain, contusion, dislocation, UTI. No erythema, no warmth to touch, no fever, nontoxic appearing, low suspicion for septic joint. due to patient's complaints of pain, ordered CT of the lumbar spine and pelvis to rule out acute pathology. Vital signs: are WNL, pt. is afebrile Ordered CT pelvis and lumbar spine and pain medication. ER COURSE Provided with pain medication. UA unremarkable, no signs of infection, doesn't require antibiotics. CT pelvis negative for fracture dislocation CT lumbar spine shows no fracture or malalignment, multiple degenerative changes. informed patient that symptoms may also be related to compensation and increased weightbearing on left leg due to walking with a cane to compensate for right knee. instructed patient she needs an MRI, can be performed on an outpatient basis. Discuss results with the patient. Provided patient with copy of results. Instructed patient to followup with PCP and discuss results of report with patient, discuss need for further treatment and referral. Patient instructed on RICE method: rest, ice, compression, elevation. Patient instructed on rest, ice and heat. Patient instructed to be WBAT Contact information for orthopedic urgent care provided, follow-up with urgent care if unable to followup with primary care provider and get referral to home health specialist. patient states that she will follow-up with this week. Followup with primary care provider. Discuss referral to ortho/pain management/ PT as needed. Discuss further imaging with MRI as needed. Rx for pain medication however patient is to follow-up with primary care provider and discuss further treatment with pain medications. patient able ambulate independently out of the ER, nontoxic appearing, in no acute distress. His pain symptoms improved on the ER. States she is not driving home, will get a ride DISCHARGE: -Rx provided for Pelican. CURES reviewed. -Rx provided for Methocarbamol. SE drowsiness, do not drink, drive, or operate heavy machinery while using. -Rx provided with lidocaine patches At this time pt. is stable for d/c to home. Patient is resting comfortably, in no acute distress, nontoxic appearing, talking without difficulty. Will provide printed patient care instructions, and any necessary prescriptions. Patient instructed to follow with primary care provider in 3 - 5 days and to request further follow-up as needed. Care plan and follow up instructions have been discussed with the patient prior to discharge. Take medications as directed. Patient questions asked and answered. Patient reports understanding and agreement to treatment plan. ER precautions given, patient instructed to return to ER immediately for any new or worsening of symptoms. - Please note that this Emergency Department Report was dictated using [employer] specialist technology software, occasionally this can lead to erroneous entry secondary to interpretation by the dictation equipment. Labs Test 04/25/18 13:57 Urine Color Yellow Urine Appearance Turbid Urine pH 5 (4.5-8.0) Urine Specific [place] 1.025 (1.005-1.035) Urine Protein 1+ (NEGATIVE) Urine Glucose (UA) Negative (NEGATIVE) Urine Ketones 1+ (NEGATIVE) Urine Blood Negative (NEGATIVE) Urine Nitrite Negative (NEGATIVE) Urine Bilirubin Negative (NEGATIVE) Urine Urobilinogen 1 MG/DL (0.0-1.0) Urine Leukocyte Esterase 1+ (NEGATIVE) Urine RBC 2-4 /HPF (0 - 2) Urine WBC 2-4 /HPF (0 - 2) Urine Squamous Epithelial Cells Moderate /LPF (NONE/OCC) Urine Bacteria Moderate /HPF (NONE) CT/MRI/US Diagnostic Results CT/MRI/US Diagnostic Results #1: Imaging Test Ordered: CT pelvis Impression No evidence of acute fracture or dislocation. CT/MRI/US Diagnostic Results #2: Imaging Test Ordered: CT lumbar spine Impression Multilevel degenerative change of the lumbar spine as detail above. No evidence of acute fracture or traumatic malalignment. Please note that the central canal, disks and nerve roots are better evaluated on MRI, which can be obtained for a more sensitive evaluation on a nonemergent basis as clinically indicated. Last Vital Signs Date Time Temp Pulse Resp B/P (MAP) Pulse Ox O2 Delivery O2 Flow Rate FiO2 04/25/18 12:45 98.4 75 14 136/85 99 Room Air 98.4 Status: improved Disposition: HOME, SELF-CARE Condition: Stable Scripts Lidocaine (Lidocaine) 1 Each Adh..patch 5 % TP DAILY, #7 PATCH Prov: Arvind Ayala 04/25/18 Methocarbamol* (ROBAXIN*) 500 Mg Tablet 500 MG PO TID, #21 TAB 0 Refills Prov: Arvnid Ayala 04/25/18 Hydrocodone Bit/Acetaminophen 5-325* (NORCO 5-325*) 1 Each Tablet 1 TAB ORAL Q6H PRN for For Pain, #10 TAB 0 Refills Prov: Arvind Ayala 04/25/18 Patient Instructions: Back Pain, Adult, Hip Pain Additional Instructions: Patient instructed to follow up with primary care provider 3-5 and discuss further referral and imaging at that time. Patient instructed on rest, ice and heat. Do not take muscle relaxant prior to drinking, driving, or operating heavy machinery. Take medications as directed. Patient questions asked and answered. ER precautions given, patient instructed to return to ER immediately for any new or worsening of symptoms. Arvind Ayala Apr 25, 2018 13:18
[2018-04-25 13:40] VITALS: BP 136/85
[2018-04-25 14:40] LABS: APPEARANCE,URINE TURBID; BILIRUBIN, URINE NEGATIVE (NEGATIVE); GLUCOSE, URINE (UA) NEGATIVE (NEGATIVE); KETONES,URINE 1+ (NEGATIVE); LEUKOCYTE ESTERASE ,URINE 1+ (NEGATIVE); NITRITE,URINE NEGATIVE (NEGATIVE); PH,URINE 5 (4.5-8.0); PROTEIN,URINE 1+ (NEGATIVE); UROBILINOGEN,URINE 1 MG/DL (0.0-1.0)
[2018-04-25 14:54] LABS: COLOR,URINE YELLOW
--- NOTE | 2018-04-25 15:03 | Diagnostic Imaging Report ---
Indication: Reason For Exam: PAIN Technique: CT scanning of the lumbar spine without contrast Dose: Total Dose Length Product - DLP [address] Dose Index - CTDIvol(s) 29.41 mGy. Automated exposure control was utilized for dose reduction. Comparison: 08/26/2017 Findings: There are 5 nonrib-bearing lumbar-type vertebral bodies, assuming 12 paired ribs. Lumbar lordosis is maintained. There is no evidence of acute fracture or traumatic malalignment. No evidence of compression fracture. L1-L2: There is mild vacuum disc phenomenon. No evidence of bony central canal stenosis. Question mild bilateral foraminal narrowing with some loss of perineural fat. L2-L3: Vacuum disc phenomenon/disc deficiency is noted with a broad-based disc bulge. Some facet disease is also noted at this level. There is associated at least mild central canal stenosis. Question mild bilateral foraminal narrowing although some perineural fat is seen. L3-L4: Vacuum disc phenomenon with disc deficiency. There is a disc bulge and hypertrophy of the ligamentum flavum resulting in at least mild or possibly moderate central canal stenosis. There is facet disease at this level. There is suspected at least moderate foraminal narrowing at this level is there is no identifiable perineural fat. L4-L5: Vacuum disc phenomenon is noted. There is also facet hypertrophy and hypertrophy of the ligamentum flavum. Results in a degree of central canal stenosis, possibly mild to moderate. Bilateral foraminal stenosis is also suggested at this level with lack of perineural fat. L5-S1: There is mild disc bulging at this level without associated significant central canal stenosis. Some perineural fat is noted at this level on the right with decreased perineural fat on the left. This suggests at multiple mild left-sided foraminal stenosis. Imaged portions of the abdominal aorta normal in caliber with atherosclerotic calcifications. Imaged portions of the kidneys grossly unremarkable. IMPRESSION: Multilevel degenerative change of the lumbar spine as detail above. No evidence of acute fracture or traumatic malalignment. Please note that the central canal, disks and nerve roots are better evaluated on MRI, which can be obtained for a more sensitive evaluation on a nonemergent basis as clinically indicated. The CT scanner at [facility] is accredited by the [employer] and the scans are performed using protocols designed to limit radiation exposure to as low as reasonably achievable to attain images of sufficient resolution adequate for diagnostic evaluation.
--- NOTE | 2018-04-25 15:13 | Diagnostic Imaging Report ---
Indication: Pain Technique: CT osseous pelvis was performed utilizing automated exposure control without intravenous contrast material. Axial, sagittal and coronal images were generated. Thin section reconstructions through the left hip were also obtained. CT dose: Total DLP 877.65 mGycm; CTDI vol 31.06 mGy Comparison: None Findings: There is no evidence of acute fracture or dislocation. Bilateral hip joints, sacroiliac joints and symphysis pubis are preserved. There are mild enthesopathic changes in the pelvic bones. Generative changes of the lower lumbar spine partially visualized. There is mild atherosclerotic disease. Iliac arteries are normal in caliber. Patient is likely status post hysterectomy. There are multiple pelvic phleboliths. Appendix is normal in caliber. IMPRESSION: No evidence of acute fracture or dislocation. The CT scanner at [facility] is accredited by the [employer] and the scans are performed using protocols designed to limit radiation exposure to as low as reasonably achievable to attain images of sufficient resolution adequate for diagnostic evaluation.
[2018-04-25] MEDS ORDERED: NORCO 5-325 TA1 EACH ORAL (15:21)
[2018-04-25] MEDS ORDERED: ROBAXIN500 MG PO (15:21)
[2018-04-25] MEDS ORDERED: LIDOCAINE700 M1 TP (15:21)
[2018-04-25 15:36] VITALS: BP 135/86
== END 2018-04-25 15:35 | disposition home or self-care (01) ==
LOC: EMR 13:15
DX: M25.552 Pain in left hip (principal); M54.5 Low back pain; G31.89 Other specified degenerative diseases of nervous system
CPT/HCPCS: 72131; 72192; 81003; 87086; 99284

== ENCOUNTER 2018-04-30 18:17 | Emergency (ER) | payer OTHER ==
[~2018-04-30] VITALS: Ht 170.2 cm; Wt 109.8 kg
[~2018-04-30 18:17] MED LIST changes: +LIDOCAINE700 M1 TP; +ROBAXIN500 MG PO
[2018-04-30 18:40] VITALS: BP 138/88
--- NOTE | 2018-04-30 19:49 | Emergency Room Report ---
History of Present Illness General Chief Complaint: Pain Source: Patient Present Illness HPI 63-year-old female presents to the emergency department complaining of left shoulder pain 1 week pain exacerbated upon lifting her arm. Denies numbness tingling or loss of sensation or gross motor movements of the extremities, incontinence of bowel or bladder. Denies CP, Palpitations, LOC, AMS , dizziness, Changes in Vision, weakness or a sudden severe headache. Allergies: Coded Allergies: No Known Allergies (Unverified , 08/25/13) Patient History Past Medical History: see triage record Past Surgical History: none Pertinent Family History: none Now: No Reviewed Nursing Documentation: PMH: Agreed; PSxH: Agreed Nursing Documentation-PMH Past Medical History: No History, Except For Hx Cardiac Problems: No Hx Hypertension: Yes Hx Pacemaker: No Hx Asthma: No Hx COPD: No Hx Diabetes: Yes Hx Cancer: No Hx Gastrointestinal Problems: Yes - GERD Hx Dialysis: No History Of Psychiatric Problem: Yes - Anxiety Hx Neurological Problems: No - chronic back pain Hx Cerebrovascular Accident: No Hx Seizures: No Review of Systems All Other Systems: negative except mentioned in HPI Physical Exam Vital Signs Date Time Temp Pulse Resp B/P (MAP) Pulse Ox O2 Delivery O2 Flow Rate FiO2 04/30/18 18:32 98.2 74 16 138/88 99 Room Air 98.2 Medical Decision Making IVY Attestation Dr. Bell is my supervising Physician whom patient management has been discussed with. Diagnostic Impression: Primary Impression: Biceps tendonitis on right Additional Impression: Shoulder pain, right Qualified Codes: M25.511 - Pain in right shoulder ER Course Pt. presents to the ED c/o [ ] Ddx considered but are not limited to Fracture, dislocation, contusion, Sprain/ Strain/Spasm, Epidural abscess, Neoplastic mets. Vital signs: are WNL, pt. is afebrile H&PE are most consistent with musculoskeletal injury will perform imaging to r/ o fractures/dislocations. ORDERS: - X-ray [ ] - negative for fx, Dislocation, or significant soft tissue injury, per preliminary read in ED, and signed by IVY Avila, my supervising physician has reviewed, and agrees with my interpretation. ED INTERVENTIONS: - [ ] DISCHARGE: At this time pt. is stable for d/c to home. Will provide printed patient care instructions, and any necessary prescriptions. Care plan and follow up instructions have been discussed with the patient prior to discharge. Other X-Ray Diagnostic Results Other X-Ray Diagnostic Results : X-Ray ordered: Right Shoulder # of Views/Limited Vs Complete: 3 View Indication: Pain EP Interpretation: Yes PA Xray: Interpretation reviewed, by supervising MD, and agrees with findings. Interpretation: no dislocation, no soft tissue swelling, no fractures Impression: No acute disease Electronically Signed by: Ofelia Avila PA-C Last Vital Signs Date Time Temp Pulse Resp B/P (MAP) Pulse Ox O2 Delivery O2 Flow Rate FiO2 04/30/18 18:40 98.2 77 16 138/88 99 Room Air 98.2 Disposition: HOME, SELF-CARE Condition: Stable Scripts Naproxen* (NAPROXEN*) 500 Mg Tablet 500 MG ORAL TWICE A DAY, #14 TAB Prov: Ofelia Avila 04/30/18 Departure Forms: Return to Work Return to Work Date: May 04, 2018 Work Restrictions: No Heavy Lifting Other Restrictions: no use of the right arm x 1 week upon return Return to Full Activity: May 11, 2018 Patient Instructions: Bicipital Tendonitis Additional Instructions: Take medications as directed. Follow up with an FINANCIAL SERVICES REPRESENTATIVE in 3-5 days, even if your symptoms have resolved. If symptoms persist MRI may be required at the discretion of your PCP or Ortho Specialist. --Please review list of primary care clinics, if you do not already have a primary care provider who can give you an Orthopedic Referral. Return sooner to ED if new symptoms occur, or current symptoms become worse. - Please note that this Emergency Department Report was dictated using [employer] traffic manager technology software, occasionally this can lead to erroneous entry secondary to interpretation by the dictation equipment. Ofelia Avila Apr 30, 2018 19:49
[2018-04-30] MEDS ORDERED: NAPROXEN500 M2 ORAL (19:50)
[2018-04-30 19:58] VITALS: BP 138/88
--- NOTE | 2018-05-01 11:10 | Diagnostic Imaging Report ---
Indication: Pain Findings: 3 views of the right shoulder were obtained. No acute fractures, malalignment, erosions or periostitis are identified. Bones appear osteopenic. Soft tissues are unremarkable. Impression: Negative for acute injury
== END 2018-04-30 20:05 | disposition home or self-care (01) ==
LOC: EMR 19:12
DX: M75.21 Bicipital tendinitis, right shoulder (principal); I10 Essential (primary) hypertension; E11.9 Type 2 diabetes mellitus without complications; K21.9 Gastro-esophageal reflux disease without esophagitis; F41.9 Anxiety disorder, unspecified
CPT/HCPCS: 99283

== ENCOUNTER 2018-09-25 13:29 | Emergency (ER) | payer OTHER ==
[~2018-09-25] VITALS: Ht 170.2 cm; Wt 109.8 kg
[~2018-09-25 13:29] MED LIST changes: +NAPROXEN500 M2 ORAL
[2018-09-25 13:48] VITALS: BP 162/84
--- NOTE | 2018-09-25 13:48 | NUR ---
ED Nurse Note: patient walked into ED c/o of left leg pain, patient states that she was going down some stairs, patient rates her pain a 8/10 pain that radiates to her lower medial back. patient is able to ambulate
[2018-09-25] MEDS ORDERED: Norco 5mg/325mg tab ORAL ONE (14:15)
--- NOTE | 2018-09-25 15:48 | Diagnostic Imaging Report ---
Indication: Left femur pain Technique: Noncontrast spiral acquisitions obtained through the left femur Multiplanar reconstructions were generated. Total dose length product 1120.37 mGycm. CTDIvol(s) 16.38 mGy. Radiation dose was minimized using automated exposure control Comparison: none. Reference is made to pelvic CT dated 04/25/2018 Findings: The femur is intact. No acute fractures. No dislocations. Degenerative proliferative changes are seen about the left knee. Minimal degenerative changes of the hip joint are noted. There is an effusion of the knee joint. There is also a popliteal cyst present. The soft tissues are otherwise unremarkable. Impression: No acute bony trauma Knee joint effusion noted. This could indicate internal derangement, inflammation, or infection. Positive for popliteal synovial cyst The CT scanner at [facility] is accredited by the [employer] and the scans are performed using protocols designed to limit radiation exposure to as low as reasonably achievable to attain images of sufficient resolution adequate for diagnostic evaluation.
--- NOTE | 2018-09-25 16:44 | Emergency Room Report ---
History of Present Illness General Chief Complaint: Lower Back Pain or Injury Source: Patient Present Illness HPI 63-year-old female presents emergency department complaining of 9/10 in severity left hip pain that radiates down to the left knee status post mechanical slip and fall. Patient reports pain with attempts to walk she states she is able to weight-bear. Patient denies previous injury to this extremity. Patient denies numbness or tingling to the distal aspects of this extremity. Patient denies hitting her head or loss of consciousness she also denies midline neck or back pain. She denies taking any pain medications prior to arrival. Denies numbness tingling or loss of sensation or gross motor movements of the extremities, incontinence of bowel or bladder. Denies CP, Palpitations, LOC, AMS, dizziness, Changes in Vision, weakness or a sudden severe headache. No relieving factors at this time. Denies swelling of either the hip, thigh or knee. Allergies: Coded Allergies: No Known Allergies (Unverified , 08/25/13) Patient History Past Medical History: see triage record Past Surgical History: none Pertinent Family History: none Last Menstrual Period: HYST Now: No Reviewed Nursing Documentation: PMH: Agreed; PSxH: Agreed Nursing Documentation-PMH Past Medical History: No History, Except For Hx Cardiac Problems: No Hx Hypertension: Yes Hx Pacemaker: No Hx Asthma: No Hx COPD: No Hx Diabetes: Yes - TYPE 2 Hx Cancer: No Hx Gastrointestinal Problems: Yes - GERD Hx Dialysis: No Hx Neurological Problems: No - chronic back pain Hx Cerebrovascular Accident: No Hx Seizures: No Review of Systems All Other Systems: negative except mentioned in HPI Physical Exam Vital Signs Date Time Temp Pulse Resp B/P (MAP) Pulse Ox O2 Delivery O2 Flow Rate FiO2 09/25/18 13:34 98.2 97 16 164/84 98 Room Air Sp02 EP Interpretation: reviewed, normal General Appearance: no apparent distress, alert, GCS 15, non-toxic Head: normocephalic, atraumatic Eyes: bilateral eye normal inspection, bilateral eye PERRL ENT: hearing grossly normal, normal voice Neck: full range of motion Respiratory: lungs clear, normal breath sounds, speaking full sentences Cardiovascular #1: regular rate, rhythm, normal capillary refill Cardiovascular #2: 2+ dorsalis pedis (L) Musculoskeletal: back normal, gait/station normal, normal range of motion, tender - lateral aspect of the left hip and top of the left knee, NVI, ROM with pain. able to weight bear minimally, ambulatiry with cane. Neurologic: alert, oriented x3, responsive, motor strength/tone normal, sensory intact, speech normal, grossly normal Psychiatric: judgement/insight normal Skin: normal color, no rash, warm/dry, well hydrated Lymphatic: no adenopathy Medical Decision Making PA Attestation Dr. Kong is my supervising Physician whom patient management has been discussed with. Diagnostic Impression: Primary Impression: Knee effusion, left Additional Impression: Contusion of left hip and thigh Qualified Codes: S70.02XA - Contusion of left hip, initial encounter; S70.12XA - Contusion of left thigh, initial encounter ER Course 63-year-old female presents emergency department complaining of 9/10 in severity left hip pain that radiates down to the left knee status post mechanical slip and fall. Patient reports pain with attempts to walk she states she is able to weight-bear. Patient denies previous injury to this extremity. Patient denies numbness or tingling to the distal aspects of this extremity. Patient denies hitting her head or loss of consciousness she also denies midline neck or back pain. She denies taking any pain medications prior to arrival. Denies numbness tingling or loss of sensation or gross motor movements of the extremities, incontinence of bowel or bladder. Denies CP, Palpitations, LOC, AMS, dizziness, Changes in Vision, weakness or a sudden severe headache. No relieving factors at this time. Denies swelling of either the hip, thigh or knee. Ddx considered but are not limited to Fracture, dislocation, contusion, Sprain/ Strain/Spasm, Vital signs: are WNL, pt. is afebrile H&PE are most consistent with musculoskeletal injury will perform imaging to r/ o fractures/dislocations. ORDERS: - CT Left HIP + Femur= Left knee effusion, DJD otherwise unremarkable ED INTERVENTIONS: - [place] PO -[place] wrap applied to the left knee by medical equipment repair technician. Pt. remains neurovascularly intact. DISCHARGE: At this time pt. is stable for d/c to home. Will provide printed patient care instructions, and any necessary prescriptions. Care plan and follow up instructions have been discussed with the patient prior to discharge. CT/MRI/US Diagnostic Results CT/MRI/US Diagnostic Results : Imaging Test Ordered: CT LEFT HIP + FEMUR Impression summary: CT Left HIP + Femur= Left knee effusion, DJD otherwise unremarkable --- Per official radiology report- Please see report for specific details. Last Vital Signs Date Time Temp Pulse Resp B/P (MAP) Pulse Ox O2 Delivery O2 Flow Rate FiO2 09/25/18 14:55 98.2 09/25/18 13:48 82 16 162/84 98 Room Air Disposition: HOME, SELF-CARE Condition: Stable Referrals: [facility],REFERRING (PCP) Departure Forms: Return to Work Return to Work Date: Sep 29, 2018 Work Restrictions: None Other Restrictions: May return Sooner if Symptoms have resolved. Return to Full Activity: Sep 29, 2018 Patient Instructions: Knee Effusion, [id number] Additional Instructions: Take medications as directed. Follow up with an GENERAL COUNSELOR in 3-5 days, even if your symptoms have resolved. If symptoms persist MRI may be required at the discretion of your PCP or Ortho Specialist. --Please review list of primary care clinics, if you do not already have a primary care provider who can give you an Orthopedic Referral. Return sooner to ED if new symptoms occur, or current symptoms become worse. - Please note that this Emergency Department Report was dictated using [employer] ribs solderer technology software, occasionally this can lead to erroneous entry secondary to interpretation by the dictation equipment. Ofelia Avila Sep 25, 2018 16:44
[2018-09-25] MEDS ORDERED: NAPROXEN500 M1 ORAL (16:46)
[2018-09-25 16:54] VITALS: BP 152/80
--- NOTE | 2018-09-25 16:54 | NUR ---
ED Nurse Note: Pt cleared by Health Care provider for discharge. ACI given and explained to pt and verbalized understanding of teachings. All medical devices such as ID band removed. Pt left with all personal belongings. Pt is AAO x4 and ambulatory with her cane.
== END 2018-09-25 16:54 | disposition home or self-care (01) ==
LOC: EMR 14:10
DX: S70.02XD Contusion of left hip, subsequent encounter (principal); S70.12XA Contusion of left thigh, initial encounter; M25.462 Effusion, left knee; W01.0XXD Fall on same level from slipping, tripping and stumbling without subsequent striking against object, subsequent encounter; I10 Essential (primary) hypertension; K21.9 Gastro-esophageal reflux disease without esophagitis; E11.9 Type 2 diabetes mellitus without complications; G89.29 Other chronic pain
CPT/HCPCS: 99284

== ENCOUNTER 2018-10-09 16:55 | Emergency (ER) | payer OTHER ==
[~2018-10-09] VITALS: Ht 170.2 cm; Wt 108.9 kg
[~2018-10-09 16:55] MED LIST changes: +NAPROXEN500 M1 ORAL
[2018-10-09 17:19] VITALS: BP 128/82
--- NOTE | 2018-10-09 17:19 | NUR ---
ED Nurse Note: L HIP AND LEG PAIN X 1 WEEK. FELL OFF FROM THE STAIRS
[2018-10-09] MEDS ORDERED: Norco 5mg/325mg tab ORAL ONE (18:15)
--- NOTE | 2018-10-09 18:54 | Emergency Room Report ---
History of Present Illness General Chief Complaint: Pain Source: Patient, Medical Record Present Illness HPI 53-year-old female presents to the emergency department for persistent 10 out of 10 in severity pain to the left knee and left leg times one week. Patient reports that she was evaluated after falling down some stairs and was discharged with conservative treatment. Patient states that her pain persists and she states that her pain has gotten worse. Patient denies new trauma or fall. Patient states that her PCP did already give her referral for MRI. Patient denies fevers, chills, erythema, bruising or open wounds. Patient denies back pain. Denies numbness tingling or loss of sensation or gross motor movements of the extremities, incontinence of bowel or bladder. Denies CP, Palpitations, LOC, AMS, dizziness, Changes in Vision, weakness or a sudden severe headache. She reports she has been resting the extremity. denies recent travel. She reports that warmth helps to relieve her pain and states that icing her extremity makes her pain worse. Allergies: Coded Allergies: No Known Allergies (Unverified , 08/25/13) Patient History Past Medical History: see triage record Past Surgical History: none Pertinent Family History: none Now: No Reviewed Nursing Documentation: PMH: Agreed; PSxH: Agreed Nursing Documentation-PMH Hx Cardiac Problems: No Hx Hypertension: Yes Hx Pacemaker: No Hx Asthma: No Hx COPD: No Hx Diabetes: Yes - TYPE 2 Hx Cancer: No Hx Gastrointestinal Problems: Yes - GERD Hx Dialysis: No Hx Neurological Problems: No - chronic back pain Hx Cerebrovascular Accident: No Hx Seizures: No Review of Systems All Other Systems: negative except mentioned in HPI Physical Exam Vital Signs Date Time Temp Pulse Resp B/P (MAP) Pulse Ox O2 Delivery O2 Flow Rate FiO2 10/09/18 17:19 98.1 82 18 128/82 99 Room Air Sp02 EP Interpretation: reviewed, normal General Appearance: alert, GCS 15, non-toxic, moderate distress Head: normocephalic, atraumatic Eyes: bilateral eye normal inspection, bilateral eye PERRL ENT: hearing grossly normal, normal voice Neck: full range of motion Respiratory: lungs clear, normal breath sounds, speaking full sentences Cardiovascular #1: regular rate, rhythm, no edema, normal capillary refill Cardiovascular #2: 2+ dorsalis pedis (R), 2+ dorsalis pedis (L) Musculoskeletal: back normal, gait/station normal, normal range of motion, tender - TTP to the posterior left knee, no increased laxity, pt. ambulatory, TTP to the posterior thigh distally as well. no bony ttp to the left hip, lumbar or sacral spine. Neurologic: alert, oriented x3, responsive, motor strength/tone normal, sensory intact, speech normal, grossly normal Psychiatric: judgement/insight normal Skin: normal color, no rash, warm/dry, well hydrated Lymphatic: no adenopathy Medical Decision Making PA Attestation Dr. Mandujano is my supervising Physician whom patient management has been discussed with. Diagnostic Impression: Primary Impression: Knee pain, left Qualified Codes: M25.562 - Pain in left knee ER Course 53-year-old female presents to the emergency department for persistent 10 out of 10 in severity pain to the left knee and left leg times one week. Patient reports that she was evaluated after falling down some stairs and was discharged with conservative treatment. Patient states that her pain persists and she states that her pain has gotten worse. Patient denies new trauma or fall. Patient states that her PCP did already give her referral for MRI. Patient denies fevers, chills, erythema, bruising or open wounds. Patient denies back pain. Denies numbness tingling or loss of sensation or gross motor movements of the extremities, incontinence of bowel or bladder. Denies CP, Palpitations, LOC, AMS, dizziness, Changes in Vision, weakness or a sudden severe headache. She reports she has been resting the extremity. denies recent travel. She reports that warmth helps to relieve her pain and states that icing her extremity makes her pain worse. Ddx considered but are not limited to Fracture, dislocation, contusion, Sprain/ Strain/Spasm, . Vital signs: are WNL, pt. is afebrile H&PE are most consistent with musculoskeletal injury will perform imaging to r/ o fractures/dislocations. ORDERS: - Duplex US of the left lower extremity : Negative for DVT ED INTERVENTIONS: - [place] PO for pain. -Patient is provided with a cane. -I do not identify an emergent condition at this time. With current presentation , pt. is stable for close outpatient follow up and conservative treatment. D/ w pt. to return promptly to ED with worsening or new symptoms.- Pt. verbalizes' understanding and agreement with proposed treatment plan. DISCHARGE: At this time pt. is stable for d/c to home. Will provide printed patient care instructions, and any necessary prescriptions. Care plan and follow up instructions have been discussed with the patient prior to discharge. Last Vital Signs Date Time Temp Pulse Resp B/P (MAP) Pulse Ox O2 Delivery O2 Flow Rate FiO2 10/09/18 17:19 98.1 82 18 128/82 99 Room Air Disposition: HOME, SELF-CARE Condition: Stable Scripts Acetaminophen With Codeine (T#4) (TYLENOL #4 TAB*) Y Tab 1 TAB ORAL Q6H PRN for For Pain, #10 TAB 0 Refills Prov: Ofelia Avila 10/09/18 Referrals: NON PHYSICIAN (PCP) Patient Instructions: KNEE PAIN, Uncertain Cause Additional Instructions: Take medications as directed. Follow up with a Primary Care Provider in 3-5 days, even if your symptoms have resolved. --Please review list of primary care clinics, if you do not already have a primary care provider Return sooner to ED if new symptoms occur, or current symptoms become worse. - Please note that this Emergency Department Report was dictated using [employer]ep[employer] ride attendant technology software, occasionally this can lead to erroneous entry secondary to interpretation by the dictation equipment. Ofelia Avila Oct 09, 2018 18:54
[2018-10-09] MEDS ORDERED: ACETAMINOPHEN-1 EAC2 ORAL (19:33)
[2018-10-09 19:42] VITALS: BP 128/82
--- NOTE | 2018-10-09 19:42 | NUR ---
ED Nurse Note: PT IS D/C PER ERMD ORDER. PT IS AOX4. PT WAS GIVEN DC AND PRECRIPTION INSCTRUCTIONS. PT VERABILZED UNDERSTANDING, PT IS ABLE TO AMBULATE WITH STEADY GAIT. ID BAND REMOVED. PT TOOK ALL BELONGINGS
--- NOTE | 2018-10-10 09:34 | Diagnostic Imaging Report ---
Indication: Left lower extremity pain and swelling. Technique: Duplex Doppler imaging performed from the left common femoral vein to the popliteal vein. FINDINGS: Normal compressibility demonstrated from the common femoral vein to the popliteal vein. Respiratory phasicity and good augmentation demonstrated on waveform analysis. There is no evidence of thrombosis. IMPRESSION: No evidence of deep venous thrombosis within the left lower extremity.
== END 2018-10-09 19:42 | disposition home or self-care (01) ==
LOC: EMR 18:20
DX: M25.562 Pain in left knee (principal); I10 Essential (primary) hypertension; E11.9 Type 2 diabetes mellitus without complications; K21.9 Gastro-esophageal reflux disease without esophagitis; G89.29 Other chronic pain; M54.9 Dorsalgia, unspecified
CPT/HCPCS: 93971; 99284

== ENCOUNTER 2019-09-21 13:59 | Emergency (ER) | payer OTHER ==
[~2019-09-21] VITALS: Ht 170.2 cm; Wt 108.9 kg
[~2019-09-21 13:59] MED LIST changes: +ACETAMINOPHEN-1 EAC2 ORAL; +ALBUTEROL SULF8.5 GM INH; +MUCINEX1200 MG PO; +PROMETHAZINE-C118 M1 ORAL; +TYLENOL EXTRA500 MG ORAL
[2019-09-21 14:10] VITALS: BP 161/92
--- NOTE | 2019-09-21 14:10 | NUR ---
ED Nurse Note: Pt ambulated to ED pain on RT lower back. Pt is AOx4. Per pt she had a fall at home, 3 days ago. Placed on bed.
[2019-09-21] MEDS ORDERED: Methocarbamol 750mg tab ORAL ONE (14:30)
[2019-09-21] MEDS ORDERED: Ketorolac 30mg Inj IM ONE (14:30)
--- NOTE | 2019-09-21 15:13 | Diagnostic Imaging Report ---
Indication: Back pain Comparison: None Findings: 3 views of the lumbar spine were obtained. 3 level fusion with pedicle screws and fusion rods from L3 through L5 demonstrated. Alignment is normal. Laminectomy noted at L3-4 and L4-5. Vertebral endplate osteophytes and narrowing of intervertebral discs, facet osteophyte formation demonstrated at multiple levels. No acute fracture is identified. IMPRESSION: No acute injury identified.
--- NOTE | 2019-09-21 15:15 | Emergency Room Report ---
History of Present Illness General Chief Complaint: Lower Back Pain or Injury Source: Medical Record Present Illness HPI 64-year-old female with history of chronic low back pain status post lumbar surgery x10 months here complaining of fall and injury and worsening lumbar pain x2 days. Denies any head injury or loss of consciousness. Rating her pain 10 out of 10 with radiation to both legs. Denies saddle paresthesia, urinary or bowel incontinence. Patient is ambulating with a cane. Has not been seen by his orthopedic surgeon in a few months. Reports that has an upcoming appointment with him in 4 days. Denies other injuries, chest pain, shortness of breath, palpitation, no other associated symptoms. Reports that she takes hydrocodone at home as needed. Allergies: Coded Allergies: No Known Allergies (Unverified , 08/25/13) Patient History Past Medical History: see triage record Past Surgical History: unable to obtain Pertinent Family History: none Now: No Immunizations: UTD Reviewed Nursing Documentation: PMH: Agreed; PSxH: Agreed Nursing Documentation-PMH Hx Cardiac Problems: No Hx Hypertension: Yes Hx Pacemaker: No Hx Asthma: No Hx COPD: No Hx Diabetes: Yes - TYPE 2 Hx Cancer: No Hx Gastrointestinal Problems: Yes - GERD Hx Dialysis: No Hx Neurological Problems: No - chronic back pain Hx Cerebrovascular Accident: No Hx Seizures: No Review of Systems All Other Systems: negative except mentioned in HPI Physical Exam Vital Signs Date Time Temp Pulse Resp B/P (MAP) Pulse Ox O2 Delivery O2 Flow Rate FiO2 09/21/19 14:06 97.7 90 20 161/92 (115) 97 Room Air Sp02 EP Interpretation: reviewed, normal General Appearance: no apparent distress, alert, GCS 15, non-toxic Head: normocephalic, atraumatic Eyes: bilateral eye normal inspection, bilateral eye PERRL ENT: hearing grossly normal, normal pharynx, no angioedema, normal voice Neck: full range of motion, supple, thyroid normal, no meningismus, supple/symm /no masses Respiratory: chest non-tender, lungs clear, normal breath sounds, no rhonchi, no respiratory distress, no retraction, no accessory muscle use, no wheezing, speaking full sentences Cardiovascular #1: regular rate, rhythm, no edema, no murmur, normal capillary refill Cardiovascular #2: 2+ dorsalis pedis (R), 2+ dorsalis pedis (L) Gastrointestinal: normal bowel sounds, non tender, soft, non-distended, no guarding, no rebound Rectal: deferred Genitourinary: no CVA tenderness Musculoskeletal: decreased range of motion, no calf tenderness, pelvis stable, no lower extremity edema, non-tender Neurologic: alert, motor strength/tone normal, oriented x3, sensory intact, responsive, speech normal Psychiatric: judgement/insight normal, memory normal, mood/affect normal, no suicidal/homicidal ideation Skin: no rash Lymphatic: no adenopathy Medical Decision Making PA Attestation All diagnoses and treatment plans were reviewed and discussed with my supervising physician Dr. Stockton Diagnostic Impression: Primary Impression: Lumbar contusion Additional Impression: Chronic low back pain ER Course 64-year-old female with history of chronic low back pain status post lumbar surgery x10 months here complaining of fall and injury and worsening lumbar pain x2 days. Denies any head injury or loss of consciousness. Rating her pain 10 out of 10 with radiation to both legs. Denies saddle paresthesia, urinary or bowel incontinence. Patient is ambulating with a cane. Has not been seen by his orthopedic surgeon in a few months. Reports that has an upcoming appointment with him in 4 days. Denies other injuries, chest pain, shortness of breath, palpitation, no other associated symptoms. Reports that she takes hydrocodone at home as needed. Ddx considered but are not limited to: Lumbar spine sprain, strain, fracture, contusion, neuropathy Vital signs: are WNL, pt. is afebrile H&PE are most consistent with: Lumbar contusion, chronic low back pain ORDERS: Lumbar spine x-ray, Motrin, Robaxin, lidocaine patch ER intervention: Toradol, Robaxin, lidocaine patch DISCHARGE: At this time pt. is stable for d/c to home. Will provide printed patient care instructions, and any necessary prescriptions. Care plan and follow up instructions have been discussed with the patient prior to discharge. Take medication as directed, follow-up with orthopedic rn, avoid strenuous physical activity, a walker was provided to the patient, patient to ambulate with a walker/cane to have more stability. If worsening symptoms return to the emergency room Other X-Ray Diagnostic Results Other X-Ray Diagnostic Results : X-Ray ordered: lumbar X ray # of Views/Limited Vs Complete: 3 View Indication: Pain EP Interpretation: Yes IVY Xray: Interpretation reviewed, by supervising MD, and agrees with findings. Interpretation: no dislocation, no soft tissue swelling, no fractures Impression: No acute disease Electronically Signed by: Vinayak HAYNES Scribe Text FILM L SPINE : No acute fracture or malalignment. Degenerative and surgical changes in the spine. Hardware is intact. Cholecystectomy clips. Last Vital Signs Date Time Temp Pulse Resp B/P (MAP) Pulse Ox O2 Delivery O2 Flow Rate FiO2 09/21/19 14:58 97.7 09/21/19 14:10 78 20 161/92 97 Room Air Status: improved Disposition: HOME, SELF-CARE Condition: Stable Scripts Lidocaine Patch* (Lidoderm Patch*) 1 Each Adh..patch 1 PATCH TOPIC DAILY, #30 PATCH Patch(es) may remain in place for up to 12 hours in any 24-hour period. Prov: Vinayak Umana 09/21/19 Methocarbamol* (ROBAXIN-750*) 750 Mg Tablet 750 MG PO TID, #21 TAB 0 Refills Prov: Vinayak Umana 09/21/19 Ibuprofen (Ibu) 800 Mg Tablet 800 MG PO TID, #30 TAB Prov: Vinayak Umana 09/21/19 Patient Instructions: Low Back Sprain With Rehab-Sports[facility] Additional Instructions: Follow-up with your orthopedic rn, take medication as directed, avoid strenuous physical activity, take medication as directed. If worsening symptoms return to emergency room Vinayak Umana Sep 21, 2019 15:15
[2019-09-21] MEDS ORDERED: LIDODERM700 M1 TOPIC (15:17)
[2019-09-21] MEDS ORDERED: ROBAXIN-750750 MG PO (15:17)
[2019-09-21] MEDS ORDERED: IBU800 MG PO (15:17)
[2019-09-21 15:25] VITALS: BP 162/94
--- NOTE | 2019-09-21 15:27 | NUR ---
Note bessyone in EDM - 09/21/19 at 1528 by NGHIA ER DISCHARGE NOTE: Pt is medically cleared to be discharged per ERMD. Pt is AOx4, VSS, on RA; no signs of acute distress. pt was given dc and prescription instructions, pt was able to verbalize understanding, pt id band removed. pt is able to ambulate with manual walker provided. pt took all belongings
== END 2019-09-21 15:56 | disposition home or self-care (01) ==
LOC: EMR 15:25
DX: S30.0XXA Contusion of lower back and pelvis, initial encounter (principal); G89.29 Other chronic pain; W19.XXXA Unspecified fall, initial encounter; Y92.9 Unspecified place or not applicable; I10 Essential (primary) hypertension; K21.9 Gastro-esophageal reflux disease without esophagitis; E11.9 Type 2 diabetes mellitus without complications
CPT/HCPCS: 72020; 96372; J1885; Z7502; 99283

== ENCOUNTER 2019-11-18 13:53 | Emergency (ER) | payer OTHER ==
[~2019-11-18] VITALS: Ht 170.2 cm; Wt 113.9 kg
[~2019-11-18 13:53] MED LIST changes: +IBU800 MG PO
[2019-11-18 14:15] VITALS: BP 151/89
--- NOTE | 2019-11-18 14:15 | NUR ---
ED Nurse Note: Pt walked in from home c/o sharp low back pain radiating to legs x a few days. Respirations even and unlabored on room air. Vitals stable as documented.
[2019-11-18] MEDS ORDERED: Ketorolac 30mg Inj IM ONE (15:15)
[2019-11-18] MEDS ORDERED: traMADol 50mg tab ORAL ONE (15:15)
--- NOTE | 2019-11-18 15:57 | Emergency Room Report ---
History of Present Illness General Chief Complaint: Lower Back Pain or Injury Source: Medical Record Present Illness HPI 64 YO Female presents to the ED c/o 06/12 in severity right-sided low back pain x 4 days. Pt. w. hx of chronic LBP. She is regularly rx'd [place]. She reports she does not receive refill of her medication until next week. Pt. denies trauma or fall. She reports some radiation of her pain to the right hip posteriorly. She denies recent spinal procedures. She denies significant changes in character of her pain. Denies numbness tingling or loss of sensation or gross motor movements of the extremities, incontinence of bowel or bladder. Denies CP, Palpitations, LOC, AMS, dizziness, Changes in Vision, weakness or a sudden severe headache. COVID-19 risk:Travel to affect: No Has patient experienced matos: No Allergies: Coded Allergies: No Known Allergies (Unverified , 08/25/13) Patient History Past Medical History: see triage record Past Surgical History: none Pertinent Family History: none Now: No Reviewed Nursing Documentation: PMH: Agreed; PSxH: Agreed Nursing Documentation-PMH Past Medical History: No History, Except For Hx Cardiac Problems: No Hx Hypertension: Yes Hx Pacemaker: No Hx Asthma: No Hx COPD: No Hx Diabetes: Yes - TYPE 2 Hx Cancer: No Hx Gastrointestinal Problems: Yes - GERD Hx Dialysis: No Hx Neurological Problems: No - chronic back pain Hx Cerebrovascular Accident: No Hx Seizures: No Review of Systems All Other Systems: negative except mentioned in HPI Physical Exam Vital Signs Date Time Temp Pulse Resp B/P (MAP) Pulse Ox O2 Delivery O2 Flow Rate FiO2 11/18/19 14:11 98.2 90 16 153/81 (105) 97 Room Air Sp02 EP Interpretation: reviewed, normal General Appearance: no apparent distress, alert, GCS 15, non-toxic Head: normocephalic, atraumatic Eyes: bilateral eye normal inspection, bilateral eye PERRL ENT: hearing grossly normal, normal voice Neck: full range of motion Respiratory: lungs clear, normal breath sounds, speaking full sentences Cardiovascular #1: regular rate, rhythm Gastrointestinal: non tender, soft Genitourinary: normal inspection, no CVA tenderness Musculoskeletal: normal range of motion, gait/station normal, tender - Right paraspinal and upper gluteal TTP, FROM with exacerbation of pain temporarily in certain flexed positions, no LE weakness, pt. is NVI, no erythema, midline bony ttp, step-offs or obvious deformity. Neurologic: alert, motor strength/tone normal, oriented x3, sensory intact, responsive, speech normal Psychiatric: judgement/insight normal Skin: no rash, normal color, normal inspection Medical Decision Making PA Attestation Dr. Lundberg is my supervising Physician whom patient management has been discussed with. Diagnostic Impression: Primary Impression: Back pain Qualified Codes: M54.41 - Lumbago with sciatica, right side ER Course 64 YO Female presents to the ED c/o 06/12 in severity right-sided low back pain x 4 days. Pt. w. hx of chronic LBP. She is regularly rx'd [place]. She reports she does not receive refill of her medication until next week. Pt. denies trauma or fall. She reports some radiation of her pain to the right hip posteriorly. She denies recent spinal procedures. She denies significant changes in character of her pain. Denies numbness tingling or loss of sensation or gross motor movements of the extremities, incontinence of bowel or bladder. Denies CP, Palpitations, LOC, AMS, dizziness, Changes in Vision, weakness or a sudden severe headache. Ddx considered but are not limited to Fracture, dislocation, contusion, epidural abscess, Sprain/Strain/Spasm Vital signs: are WNL, pt. is afebrile H&PE are most consistent with exacerbation of chronic low back pain. no evidence of cauda equina or infection ORDERS: X-ray not required at this time, no spinous process tenderness ED INTERVENTIONS: - Toradol IM -Tramadol PO . Re-Evaluation: pt. states her pain has subsided with ED interventions, and would like to be d/c to home. DISCHARGE: At this time pt. is stable for d/c to home. Will provide printed patient care instructions, and any necessary prescriptions. Care plan and follow up instructions have been discussed with the patient prior to discharge. Last Vital Signs Date Time Temp Pulse Resp B/P (MAP) Pulse Ox O2 Delivery O2 Flow Rate FiO2 11/18/19 14:15 98.2 97 16 151/89 97 Room Air Disposition: HOME, SELF-CARE Condition: Stable Scripts Methocarbamol* (ROBAXIN-750*) 750 Mg Tablet 750 MG PO TID, #21 TAB 0 Refills Prov: Avila,Ofelia PA 11/18/19 Patient Instructions: Back Pain, Adult Additional Instructions: ~ ~ An emergent medical condition has not been identified based on this patients presentation, exam and any necessary testing/imaging. The patient is determined to be stable for outpatient follow-up and management of symptoms by a primary care provider. Take medications as directed. Do not drink alcohol, drive, or operate heavy machinery while taking ROBAXIN/ MUSCLE RELAXER as this may cause drowsiness. Follow up with a Primary Care Provider in 3-5 days, even if your symptoms have resolved. Return sooner to ED if new symptoms occur, or current symptoms become worse. - Please note that this Emergency Department Report was dictated using [employer] supervisor technology software, occasionally this can lead to erroneous entry secondary to interpretation by the dictation equipment. Ofelia Avila Nov 18, 2019 15:57
[2019-11-18] MEDS ORDERED: ROBAXIN-750750 MG PO (15:58)
[2019-11-18 16:00] VITALS: BP 153/81
--- NOTE | 2019-11-18 16:00 | NUR ---
ER DISCHARGE NOTE: Patient is cleared to be discharged per ERMD, pt is aox4, on room air, with stable vital signs as documented. pt was given dc and prescription instructions and was able to verbalize understanding, pt id band removed. pt is able to ambulate with steady gait using walker. pt took all belongings.
== END 2019-11-18 16:00 | disposition home or self-care (01) ==
LOC: EMR 14:35
DX: M54.41 Lumbago with sciatica, right side (principal); I10 Essential (primary) hypertension; E11.9 Type 2 diabetes mellitus without complications; K21.9 Gastro-esophageal reflux disease without esophagitis
CPT/HCPCS: 96372; J1885; Z7502; 99283